=== PATIENT | male | born 1950 | race Caucasian/White ===

== ENCOUNTER 2020-01-19 16:43 | Emergency (ER) | payer MEDICARE, SELFPAY ==
[2020-01-19 16:48] VITALS: BP 192/91; PULSE 83; RESP 20; TEMP 36.6; O2SAT 95; BMI 30.7
[2020-01-19 16:58] VITALS: BP 192/91; PULSE 83; RESP 17; TEMP 36.6; O2SAT 96
[2020-01-19] MEDS: 0.9 % Sodium Chloride 1,000 ML 1000 ML IV (17:18)
[2020-01-19] MEDS: methylPREDNISolone Sod Succ/PF 125 MG/2 ML VIAL IVPUSH (17:19)
[2020-01-19] MEDS: diphenhydrAMINE HCL 50 MG/ML VIAL IVPUSH (17:20)
[2020-01-19] MEDS: EPINEPHrine 1 MG/ML VIAL 0.3 MG SUBCUT (17:24)
[2020-01-19 17:35] LABS: MANUAL DIFF FLAG NO
[2020-01-19 17:37] LABS: Basophils Percent Auto 0.5 % (0-2); Eosinophils Absolute Auto 0.1 X10*3/uL (0.0-0.4); Eosinophils Percent Auto 1.4 % (0-4); Hematocrit 45.2 % (42-52); Hemoglobin 15.4 g/dl (14.0-18.0); Imm Gran Abs Auto 0.02 X10*3/uL (0.00-0.03); Imm Gran Pct Auto 0.2 % (0.0-0.4); Lymphocytes Absolute Auto 2.3 X10*3/uL (1.2-4.9); Lymphocytes Percent Auto 26.5 % (20-40); Mean Corpuscular HGB Conc 34.1 g/dl (31.0-36.0); Mean Corpuscular Volume 93.8 fL (80-98); Monocytes Absolute Auto 0.6 X10*3/uL (0.1-1.2); Monocytes Percent Auto 7.1 % (2-11); Neutrophils Absolute Auto 5.5 X10*3/uL (2.0-8.3); Neutrophils Percent Auto 64.3 % (45-73); Platelet Count 243 X10*3/uL (160-400); Red Blood Count 4.82 X10*6/uL (4.60-5.80); Red Cell Distribution Width 13.1 % (11.0-16.0); White Blood Count 8.6 X10*3/uL (4.8-10.8)
[2020-01-19 18:21] LABS: Alanine Aminotransferase 40 U/L (0-40); Albumin Level 4.3 g/dL (3.5-5.0); Alkaline Phosphatase 89 U/L (39-117); Anion Gap 17 (12-20); Aspartate Amino Transferase 27 U/L (5-37); Bilirubin Total 0.8 mg/dL (0.0-1.0); Blood Urea Nitrogen 11 mg/dL (9-16); Calcium 8.9 mg/dL (8.4-10.2); Carbon Dioxide 28 mmol/L (22-29); Chloride 102 mmol/L (96-108); Estimated Glomerular Filt Rate > 60; Glucose Random 110 mg/dL (60-115); Potassium 3.7 mmol/l (3.3-5.1); Sodium 143 mmol/L (135-145)
[2020-01-19 19:05] VITALS: BP 141/67; PULSE 88; RESP 20; TEMP 36.5; O2SAT 93
--- NOTE | 2020-01-19 20:43 | ED.ALLEREA ---
HPI - Allergic Reaction General Chief complaint: Allergic Reaction Stated complaint: TONGUE SWELLING Time Seen by Provider: 01/19/20 17:12 Source: patient Mode of arrival: ambulatory Limitations: no limitations History of Present Illness HPI narrative: 69-year-old male with history of hypertension previously on lisinopril/hydrochlorothiazide combination which was stopped about 4 months ago when he had developed angioedema presents today states that he went for denture fitting this morning at his dentist did not get any procedures and later on the day developed lips and tongue swelling. Denies any shortness of breath. Does have slight cough. States this has happened similarly in the past but not as bad as last visit here. MD complaint: allergic reaction Onset (ago): hour(s) Exposure: unknown Symptoms: rash, lip swelling, difficulty swallowing and tongue swelling Severity: moderate Previous Allergic Reaction History: prior ED visit(s) and angioedema Related Data Previous Rx's Medication Instructions Recorded clonidine HCl 0.1 mg tablet 0.1 mg PO BEDTIME 90 Days #90 tab 01/12/20 prednisone 40 mg PO DAILY #14 tab 01/19/20 Allergies Allergy/AdvReac Type Severity Reaction Status Date / Time No Known Allergies Allergy Unverified 11/25/19 16:49 [No Known Allergies*] Lisinopril-Hydrochlorothiazide Allergy Unknown swelling Uncoded 11/09/19 00:00 of lips and tongue Review of Systems Review of Systems: Constitutional: No Weight loss, No Fever, No Chills, No Night Sweats, No Fatigue, No Malaise ENT/Mouth: No Hearing loss, No Ear Pain, No Nasal Congestion, No Sinus Pain, No Hoarseness, No sore throat, No Rhinorrhea, No Swallowing Difficulty Eyes: No Eye Pain, No Swelling, No Redness, No Foreign Body, No Discharge, No Vision Changes Cardiovascular: No Chest Pain, No SOB, No Dyspnea on Exertion, No Orthopnea, No Edema, No Palpitations Respiratory: No Cough, No Sputum, No Wheezing, No Smoke Exposure, No Dyspnea Gastrointestinal: No Nausea, No Vomiting, No Diarrhea, No Constipation, No abdominal Pain, No Hematochezia, No Melena Genitourinary: No Dysuria, No Urinary Frequency, No Hematuria, No Urinary Incontinence, No Urgency, No Flank Pain, No Urinary Flow Changes, No Hesitancy Musculoskeletal: No joint pain, No Myalgias, No Joint Swelling Skin: No Skin Lesions, No rash Neuro: No Weakness, No Numbness, No Paresthesias, No Loss of Consciousness, No Dizziness, No Headache Psych: No Social Issues Heme/Lymph: No Bruising, No Bleeding,No Lymphadenopathy Endocrine: No Polyuria, No Polydipsia, No Temperature Intolerance Yes all other systems are reviewed and are negative [facility] Past Medical History Attestation statement: The following information was validated with the patient. Medical History Asthma Hypercholesteremia Hypertension Social History Social History Smoked in Last 30 Days: No Use of substances other than those prescribed or required for medical reasons: No Advance Directives: No Advance Directives Information Provided: Yes Physical Exam Vital Signs: Vital Signs: Last Vital Signs Temp 97.7 F 01/19/20 19:05 Pulse 88 01/19/20 19:05 Resp 20 01/19/20 19:05 BP 141/67 H 01/19/20 19:05 Pulse Ox 93 01/19/20 19:05 Body Mass Index 30.7 Reviewed Const: General: cooperative and healthy appearing; No acute distress or intoxicated appearing Nutritional Appearance: average body habitus Orientation/consciousness: patient oriented x3 HENMT: Other: Diffuse lower lip swelling Head: Yes normal to inspection Ears: hearing grossly normal bilaterally Mouth: tongue abnormal (Tongue with swelling noted to the distal aspect. Posterior pharynx WNL) Eyes: General: appearance normal, both eyes and all related structures Visual Honeycutt: normal visual honeycutt by confrontation Neck: Neck: Yes normal visual inspection, No positive Brudzinski's sign, No positive Kernig's sign and No tender Thyroid: Thyroid normal Chest: Chest palpation & inspection: normal inspection of the chest Resp: Effort & Inspection: normal respiratory effort Cardio: Jugular venous distension: no JVD GI: Inspection: Yes normal to inspection Percussion: Yes normal to percussion Auscultation: normal bowel sounds : General: Yes no CVA tenderness Back/Spine/Pelvis: Back: no CVA tenderness Skin: General skin exam: no rashes or lesions noted Neuro: General: patient oriented x3 Extrem: General: Yes normal to inspection Course Course Course Narrative: Unclear etiology of the angioedema was previously on lisinopril thought to be causing this. This was stopped 4 months ago or so. Patient has not tried any new medications antibiotics. No recent vaccinations. Patient given epinephrine 0.3 subcu, Benadryl, Solu-Medrol and Pepcid. Case discussed with attending who evaluated patient made directly upon arrival. Airway is protected at this time. Reevaluation(s) Reevaluation #1: Patient reports feeling better visually tongue swelling has receded greater 50% at this time resting comfortably drinking water still has slight visible lip swelling. Continue to monitor. I did discuss with the patient given that he has been here for 2 hours after being medicated here that admission would be recommended for observation states he would prefer to go home as this has happened before is willing to stay in the ED for additional few hours for observation. Reevaluation #2: Patient observed symptoms almost fully resolved minimal swelling to the lip still noted. No further complications. Patient requesting discharge home patient will be given short course of prednisone with clear return follow-up precautions. MDM - Allergic Reaction Lab Data Result diagrams: 01/19/20 17:28 01/19/20 17:28 Labs: Lab Results 01/19/20 01/19/20 Range/Units 17:28 17:28 WBC 8.6 (4.8-10.8) X10*3/uL RBC 4.82 (4.60-5.80) X10*6/uL Hgb 15.4 (14.0-18.0) g/dl Hct 45.2 (42-52) % MCV 93.8 (80-98) fL MCH 32.0 (27.0-33.0) pg MCHC 34.1 (31.0-36.0) g/dl RDW 13.1 (11.0-16.0) % Plt Count 243 (160-400) X10*3/uL MPV 9.0 L (9.4-12.4) fL Immature Gran % (Auto) 0.2 (0.0-0.4) % Neut % (Auto) 64.3 (45-73) % Lymph % (Auto) 26.5 (20-40) % [place] % (Auto) 7.1 (2-11) % Eos % (Auto) 1.4 (0-4) % Baso % (Auto) 0.5 (0-2) % Lymph # (Auto) 2.3 (1.2-4.9) X10*3/uL [place] # (Auto) 0.6 (0.1-1.2) X10*3/uL Eos # (Auto) 0.1 (0.0-0.4) X10*3/uL Baso # (Auto) 0.0 (0.0-0.2) X10*3/uL Abs Immat Gran (auto) 0.02 (0.00-0.03) X10*3/uL Absolute Neuts (auto) 5.5 (2.0-8.3) X10*3/uL Absolute Nucleated RBC 0.000 (0.0-0.012) X10*3/uL Nucleated RBC % (auto) 0.0 (0.0-0.2) /100WBC Sodium 143 (135-145) mmol/L Potassium 3.7 (3.3-5.1) mmol/l Chloride 102 (96-108) mmol/L Carbon Dioxide 28 (22-29) mmol/L Anion Gap 17 (12-20) BUN 11 (9-16) mg/dL Creatinine 0.94 (0.5-1.4) mg/dL Estim Creat Clear Calc 88.0 Estimated GFR > 60 Random Glucose 110 (60-115) mg/dL Calcium 8.9 (8.4-10.2) mg/dL Total Bilirubin 0.8 (0.0-1.0) mg/dL AST 27 (5-37) U/L ALT 40 (0-40) U/L Alkaline Phosphatase 89 (39-117) U/L Total Protein 7.0 (6.5-8.0) g/dL Albumin 4.3 (3.5-5.0) g/dL Critical Care Time Critical Care Time Critical Care Time: Yes Total Critical Care Time: 65 Attestation: Significant angioma edema on arrival requiring immediate intervention with epinephrine and IV medication and monitoring airway for potential compromise/intubation. Discharge Plan Discharge Clinical Impression: Angioedema Patient Disposition: Home, Self-Care Instructions: Angioedema (ED) Additional Instructions: follow-up as instructed return to emergency room right away if any concerns or worsening symptoms Take medication as prescribed Unclear as to the source of your allergic reaction that is causing the swelling in her tongue and lip again the recommendation was for us to admit due to observe the overnight however he declined this Follow-up with capital markets specialist as discussed Thank you Prescriptions: New prednisone 20 mg tablet 40 mg PO DAILY Qty: 14 RF: 0 No Action clonidine HCl 0.1 mg tablet 0.1 mg PO BEDTIME 90 Days Qty: 90 RF: 0 Referrals: Rickey Maria FNP-BC [Primary Care Provider] - 1 day Interventions: ED Discharge Assessment Last Done: 01/19/20 21:14 Discharge Date/Time: 01/19/20 21:15
== END 2020-01-19 21:15 | disposition home or self-care (01) ==
PROVIDERS: Nurse Practitioner Primary Care; Emergency Provider Emergency Medicine Emergency Medical Services; PCP Nurse Practitioner Family
DX: L27.1 Localized skin eruption due to drugs and medicaments taken internally (principal); I10 Essential (primary) hypertension; T78.3XXA Angioneurotic edema, initial encounter; T46.4X5A Adverse effect of angiotensin-converting-enzyme inhibitors, initial encounter; Y92.9 Unspecified place or not applicable; Z79.899 Other long term (current) drug therapy
CPT/HCPCS: 36415; 80053; 85025; 96361; 96372; 96374; 96375; 99284; J0171; J1200; J2930

== ENCOUNTER 2020-04-04 09:28 | Outpatient (REF) | payer MEDICARE, SELFPAY ==
--- NOTE | 2020-04-04 09:31 | XR_ITS ---
EXAMINATION: BILATERAL SHOULDER. CLINICAL INFORMATION: Pain and bilateral shoulder. COMPARISON: None TECHNIQUE: 3 views each shoulder. FINDINGS: Left shoulder: There is no visible acute fracture, dislocation or subluxation. The glenohumeral and AC joint space is maintained. The soft tissues are normal. Right shoulder: There is no visible acute fracture, dislocation or subluxation. The glenohumeral and AC joint space is maintained. The soft tissues are normal. XR/XR shoulder RT min 2V IMPRESSION: Unremarkable bilateral shoulder exam
--- NOTE | 2020-04-04 09:31 | XR_ITS ---
EXAMINATION: BILATERAL SHOULDER. CLINICAL INFORMATION: Pain and bilateral shoulder. COMPARISON: None TECHNIQUE: 3 views each shoulder. FINDINGS: Left shoulder: There is no visible acute fracture, dislocation or subluxation. The glenohumeral and AC joint space is maintained. The soft tissues are normal. Right shoulder: There is no visible acute fracture, dislocation or subluxation. The glenohumeral and AC joint space is maintained. The soft tissues are normal. XR/XR shoulder LT min 2V IMPRESSION: Unremarkable bilateral shoulder exam
== END 2020-04-04 09:29 | disposition home or self-care (01) ==
LOC: HO.HMGCX 09:28
PROVIDERS: PCP Nurse Practitioner Family; Visit Provider Nurse Practitioner Family
DX: M25.512 Pain in left shoulder (principal); M25.511 Pain in right shoulder; G89.29 Other chronic pain
CPT/HCPCS: 73030

== ENCOUNTER 2020-04-08 13:44 | Emergency (ER) | payer MEDICARE, SELFPAY ==
[2020-04-08 13:55] VITALS: BP 213/91; PULSE 98; RESP 18; TEMP 36.6; O2SAT 96; BMI 30.1
--- NOTE | 2020-04-08 14:17 | ECG_ITS ---
Test Reason : REACTION Blood Pressure : / mmHG Vent. Rate : 080 BPM Atrial Rate : 080 BPM P-R Int : 158 ms QRS Dur : 138 ms QT Int : 422 ms P-R-T Axes : 054 -66 045 degrees QTc Int : 486 ms Normal sinus rhythm Right bundle branch block Left anterior fascicular block Bifascicular block Minimal voltage criteria for LVH, may be normal variant Abnormal ECG When compared with ECG of 22-SEP-2001 14:41, (RBBB and left anterior fascicular block) is now Present Referred By: Brooklynn Fam Electronically Signed By:Franky Figueroa
[2020-04-08 14:29] LABS: Basophils Absolute Auto 0.1 X10*3/uL (0.0-0.2); Basophils Percent Auto 0.5 % (0-2); Eosinophils Absolute Auto 0.2 X10*3/uL (0.0-0.4); Eosinophils Percent Auto 2.2 % (0-4); Hematocrit 44.5 % (42-52); Imm Gran Abs Auto 0.03 X10*3/uL (0.00-0.03); Imm Gran Pct Auto 0.3 % (0.0-0.4); MANUAL DIFF FLAG NO; Mean Corpuscular HGB Conc 33.7 g/dl (31.0-36.0); Mean Corpuscular Hemoglobin 31.4 pg (27.0-33.0); Mean Corpuscular Volume 93.3 fL (80-98); Mean Platelet Volume 9.2 fL (9.4-12.4); Monocytes Absolute Auto 0.7 X10*3/uL (0.1-1.2); Monocytes Percent Auto 7.6 % (2-11); Neutrophils Absolute Auto 5.4 X10*3/uL (2.0-8.3); Neutrophils Percent Auto 57.4 % (45-73); Platelet Count 253 X10*3/uL (160-400); Red Blood Count 4.77 X10*6/uL (4.60-5.80); White Blood Count 9.4 X10*3/uL (4.8-10.8)
[2020-04-08] MEDS: 0.9 % Sodium Chloride 1,000 ML 999 ML IVCONT (14:31)
[2020-04-08] MEDS: diphenhydrAMINE HCL 50 MG/ML VIAL 25 MG IVPUSH (14:32)
[2020-04-08] MEDS: Famotidine/PF 20 MG/2 ML VIAL IVPUSH (14:32)
[2020-04-08 14:33] VITALS: BP 213/91; PULSE 78
[2020-04-08] MEDS: amLODIPine Besylate 5 MG TABLET PO (14:33)
[2020-04-08 14:49] LABS: COVID-19 Test Negative (Negative)
--- NOTE | 2020-04-08 14:52 | PC.NURSE ---
iv inserted, labs drawn, ekg performed, patient medicated per order, vitals currently stable, will continue to monitor.
[2020-04-08 15:00] LABS: Anion Gap 17 (12-20); Blood Urea Nitrogen 15 mg/dL (9-16); Calcium 9.1 mg/dL (8.4-10.2); Carbon Dioxide 25 mmol/L (22-29); Chloride 106 mmol/L (96-108); Creatinine Clr Calc Pharmacy 79.6; Estimated Glomerular Filt Rate > 60; Glucose Random 123 mg/dL (60-115); Sodium 144 mmol/L (135-145)
[2020-04-08 15:08] LABS: B Type Natriuretic Peptide 56 pg/mL (<100)
[2020-04-08 15:17] VITALS: BP 171/80; PULSE 72; RESP 18; TEMP 36.8; O2SAT 98
--- NOTE | 2020-04-08 15:18 | PC.NURSE ---
patient a&ox3, currently watching tv, playground monitor nsr 70s, vitals stable, will continue to monitor.
--- NOTE | 2020-04-08 15:49 | ED_ITS ---
HPI - Allergic Reaction General Chief complaint: Allergic Reaction Stated complaint: allergic reaction? Time Seen by Provider: 04/08/20 14:17 Source: patient Mode of arrival: ambulatory Limitations: no limitations History of Present Illness HPI narrative: This is a 69-year-old male with history of hypertension, patient had sudden gradual right-sided tongue swelling at home started before arrival, only localized to the right side of the tongue, able to wheeze comfortably a normal, no difficulty breathing. Patient's self inject with epinephrine pen, patient had this episode once before patient was using lisinopril for blood pressure but was stopped for the past almost 2 months. Blood pressure was on the high side in the emergency department, patient declined any chest pain, no difficulty breathing, throat pain or swelling. Patient declined any tongue injury or biting his tongue with his partial denture. No rashes, no itching. Related Data Previous Rx's Medication Instructions Recorded prednisone 40 mg PO DAILY #14 tab 01/19/20 diphenhydramine HCl 25 mg capsule 25 mg PO DAILY PRN 90 Days #90 cap 01/25/20 epinephrine 0.3 mg/0.3 mL 0.3 mg IM Q10M PRN 30 Days #2 ea 01/25/20 injection, auto-injector clonidine HCl 0.1 mg tablet 0.1 mg PO BEDTIME #90 tab 02/15/20 omeprazole 40 mg capsule,delayed 40 mg PO DAILY #60 cap 02/15/20 release atorvastatin 20 mg tablet 20 mg PO DAILY #90 tab 02/24/20 ibuprofen 600 mg tablet 600 mg PO Q8H 30 Days #90 tab 04/04/20 amlodipine 5 mg PO DAILY #10 tab 04/08/20 prednisone 20 mg PO BID #10 tab 04/08/20 Allergies Allergy/AdvReac Type Severity Reaction Status Date / Time Lisinopril-Hydrochlorothiazide Allergy Intermediate swelling Uncoded 04/08/20 14:02 of lips and tongue Review of Systems Review of Systems: All other systems are reviewed and are negative Constitutional: Reports as per HPI and Reports no additional constitutional complaints Eyes: Reports as per HPI and Reports no additional eye complaints Reports system reviewed and no additional complaints, except as documented Cardiovascular: Reports as per HPI and Reports no additional cardiovascular complaints Respiratory: Reports as per HPI and Reports no additional respiratory complaints Gastrointestinal: Reports as per HPI and Reports no additional gastrointestinal complaints Genitourinary: Reports no additional female genitourinary complaints Musculoskeletal: Reports no additional musculoskeletal complaints Skin/Breast: Reports system reviewed and no additional complaints, except as docu Psychiatric: Reports no additional psychiatric complaints Endocrine: Reports no additional endocrine complaints Hematologic/Lymphatic: Reports no additional hematologic/lymphatic complaints Allergic/Immunologic: Reports no additional allergic/immunologic complaints Reports system reviewed and no additional complaints, except as documented and Reports Abnormal speech present [facility] Past Medical History Medical History Asthma Hypercholesteremia Hypertension Social History Social History Alcohol intake: current Alcohol intake frequency: a few times a week Alcohol type: wine Smoking Status: Never smoker Use of substances other than those prescribed or required for medical reasons: No Advance Directives: No Advance Directives Information Provided: Yes Physical Exam Vital Signs: Vital Signs: Last Vital Signs Temp 98.3 F 04/08/20 15:17 Pulse 72 04/08/20 15:17 Resp 18 04/08/20 15:17 BP 171/80 H 04/08/20 15:17 Pulse Ox 98 04/08/20 15:17 Body Mass Index 30.1 Vital signs have been reviewed as normal and appeared to be correct. Blood pressure in the high range, Heart rate normal. Respiration rate normal. Temperature normal. Oxygen saturation normal. Appearance: Alert. Oriented X3. No acute distress. Head: Normal external exam. Normocephalic. Atraumatic. No Gonzalez signs noted. No raccoon eyes noted Eyes: PERRLA. EOMI. Conjunctiva and sclera normal. Eyelids normal. Mouth: Tongue swelling only focal to the right side, left side appear normal, no dental euceda or signs of trauma to the tongue, patent airway, no stridor so. ENT: EAC normal. TM's Normal. Pharynx normal. Uvula midline. Moist mucous membranes. No trismus noted. No drooling noted. No muffled voice noted. Neck: Normal inspection. Neck supple. FROM. No adenopathy. Thyroid Normal. No meningeal signs. No neck mass noted. CVS: Normal heart rate and rhythm. Heart sound normal. No murmurs noted. Pulses normal throughout. Respiratory: No respiratory distress. Painless inspiration. Breath sounds normal. No wheezes/rales/rhonchi noted. Chest nontender. No accessory muscle usage noted or decreased air movement noted. Abdomen: Soft and nontender. Bowel sounds normal in all 4 quadrants. No distention noted. No organomegaly noted. No visible injury noted. Back: No CVA tenderness. Full range of motion noted. Skin: Skin warm and dry. Normal skin color. Normal skin turgor. No rashes/lesions/lacerations noted. Extremities: No lower extremity edema. Extremities exhibit normal range of motion. Extremities nontender. Neuro: Oriented X 3. No motor deficit. No sensory deficit. Reflexes normal. Course Course Course Narrative: 69 year-old male came in with right-sided tongue swelling, of unclear etiology, patient used to use lisinopril for blood pressure control which was stopped for 2 months ago. Patient has patent airway with no stridor, patient received in the emergency department Solu-Medrol, Pepcid, Benadryl IV, patient self inject epinephrine at home, repeat exam showed slight improvement of the right side of the tongue, however I thought the swelling on the right side of the tongue could be secondary to trauma and biting his right side of the tongue from the partial denture that he usually wear on the right side. However patient has scheduled for seen auditor/quality as an outpatient. Will discharge the patient on short course of prednisone. Patient is on clonidine for his blood pressure which appears not well controlling his blood pressure will add amlodipine 5 mg p.o. once daily seem work better in the emergency department. MDM - Allergic Reaction Lab Data Attestation: I reviewed the patient's lab results. Result diagrams: 04/08/20 14:24 04/08/20 14:24 Labs: Lab Results 04/08/20 04/08/20 04/08/20 Range/Units 14:24 14:24 14:24 WBC 9.4 (4.8-10.8) X10*3/uL RBC 4.77 (4.60-5.80) X10*6/uL Hgb 15.0 (14.0-18.0) g/dl Hct 44.5 (42-52) % MCV 93.3 (80-98) fL MCH 31.4 (27.0-33.0) pg MCHC 33.7 (31.0-36.0) g/dl RDW 13.0 (11.0-16.0) % Plt Count 253 (160-400) X10*3/uL MPV 9.2 L (9.4-12.4) fL Immature Gran % (Auto) 0.3 (0.0-0.4) % Neut % (Auto) 57.4 (45-73) % Lymph % (Auto) 32.0 (20-40) % [place] % (Auto) 7.6 (2-11) % Eos % (Auto) 2.2 (0-4) % Baso % (Auto) 0.5 (0-2) % Lymph # (Auto) 3.0 (1.2-4.9) X10*3/uL [place] # (Auto) 0.7 (0.1-1.2) X10*3/uL Eos # (Auto) 0.2 (0.0-0.4) X10*3/uL Baso # (Auto) 0.1 (0.0-0.2) X10*3/uL Abs Immat Gran (auto) 0.03 (0.00-0.03) X10*3/uL Absolute Neuts (auto) 5.4 (2.0-8.3) X10*3/uL Absolute Nucleated RBC 0.000 (0.0-0.012) X10*3/uL Nucleated RBC % (auto) 0.0 (0.0-0.2) /100WBC Sodium 144 (135-145) mmol/L Potassium 4.0 (3.3-5.1) mmol/L Chloride 106 (96-108) mmol/L Carbon Dioxide 25 (22-29) mmol/L Anion Gap 17 (12-20) BUN 15 (9-16) mg/dL Creatinine 1.03 (0.5-1.4) mg/dL Estim Creat Clear Calc 79.6 Estimated GFR > 60 Random Glucose 123 H (60-115) mg/dL Calcium 9.1 (8.4-10.2) mg/dL B-Natriuretic Peptide 56 (<100) pg/mL COVID-19 ([facility]) (Negative) COVID-19 Clin Com 04/08/20 Range/Units 14:24 WBC (4.8-10.8) X10*3/uL RBC (4.60-5.80) X10*6/uL Hgb (14.0-18.0) g/dl Hct (42-52) % MCV (80-98) fL MCH (27.0-33.0) pg MCHC (31.0-36.0) g/dl RDW (11.0-16.0) % Plt Count (160-400) X10*3/uL MPV (9.4-12.4) fL Immature Gran % (Auto) (0.0-0.4) % Neut % (Auto) (45-73) % Lymph % (Auto) (20-40) % [place] % (Auto) (2-11) % Eos % (Auto) (0-4) % Baso % (Auto) (0-2) % Lymph # (Auto) (1.2-4.9) X10*3/uL [place] # (Auto) (0.1-1.2) X10*3/uL Eos # (Auto) (0.0-0.4) X10*3/uL Baso # (Auto) (0.0-0.2) X10*3/uL Abs Immat Gran (auto) (0.00-0.03) X10*3/uL Absolute Neuts (auto) (2.0-8.3) X10*3/uL Absolute Nucleated RBC (0.0-0.012) X10*3/uL Nucleated RBC % (auto) (0.0-0.2) /100WBC Sodium (135-145) mmol/L Potassium (3.3-5.1) mmol/L Chloride (96-108) mmol/L Carbon Dioxide (22-29) mmol/L Anion Gap (12-20) BUN (9-16) mg/dL Creatinine (0.5-1.4) mg/dL Estim Creat Clear Calc Estimated GFR Random Glucose (60-115) mg/dL Calcium (8.4-10.2) mg/dL B-Natriuretic Peptide (<100) pg/mL COVID-19 ([facility]) Negative (Negative) COVID-19 Clin Com See Note ECG Data Interpretation: Normal sinus rhythm at 80 beats per minute, left axis deviation, right bundle branch block, LVH. Discharge Plan Discharge Clinical Impression: Angioedema Qualifiers: Encounter type: initial encounter Qualified Code(s): T78.3XXA - Angioneurotic edema, initial encounter Hypertension Qualifiers: Hypertension type: unspecified Qualified Code(s): I10 - Essential (primary) hypertension Patient Disposition: Home, Self-Care Instructions: Angioedema (ED), Hypertension (ED) Prescriptions: New amlodipine 5 mg tablet 5 mg PO DAILY Qty: 10 RF: 0 prednisone 20 mg tablet 20 mg PO BID Qty: 10 RF: 0 No Action diphenhydramine HCl [Allergy (diphenhydramine)] 25 mg capsule 25 mg PO DAILY PRN (Reason: allergy symptoms) 90 Days Qty: 90 RF: 0 epinephrine [EpiPen] 0.3 mg/0.3 mL auto-injector 0.3 mg IM Q10M PRN (Reason: hypersensitivity reaction) 30 Days Qty: 2 RF: 0 omeprazole 40 mg capsule,delayed release(DR/EC) 40 mg PO DAILY Qty: 60 RF: 2 clonidine HCl 0.1 mg tablet 0.1 mg PO BEDTIME Qty: 90 RF: 1 atorvastatin 20 mg tablet 20 mg PO DAILY Qty: 90 RF: 2 prednisone 20 mg tablet 40 mg PO DAILY Qty: 14 RF: 0 ibuprofen 600 mg tablet 600 mg PO Q8H 30 Days Qty: 90 RF: 3 Referrals: Rickey Maria FNP-AKIKO [Primary Care Provider] - 2 days
[2020-04-08 16:09] VITALS: BP 165/84
== END 2020-04-08 16:35 | disposition home or self-care (01) ==
PROVIDERS: Emergency Provider Emergency Medicine; PCP Nurse Practitioner Family
DX: T78.3XXA Angioneurotic edema, initial encounter (principal); I10 Essential (primary) hypertension; Z20.822 Contact with and (suspected) exposure to COVID-19
CPT/HCPCS: 36415; 80048; 83880; 85025; 87635; 93005; 96365; 96375; 99284; J1200; J2930

== ENCOUNTER 2021-02-12 09:11 | Outpatient (REF) | payer MEDICARE, SELFPAY ==
--- NOTE | ~2021-02-12 | XR_ITS ---
EXAMINATION: XR FOOT, LEFT XR FOOT, RIGHT CLINICAL INFORMATION: Polyneuropathy COMPARISON: None TECHNIQUE: 3 views of each foot FINDINGS: Left foot: No fracture or dislocation. Alignment is anatomic. Joint spaces are maintained. There is mild hypertrophic spurring at the plantar aponeurosis and Achilles insertion to the calcaneus. No ankle joint effusion. The soft tissues are unremarkable. Right foot: No fracture or dislocation. Alignment is anatomic. Joint spaces are maintained. No ankle joint effusion. Mild hypertrophic spurring at the plantar aponeurosis to the calcaneus. No ankle joint effusion. The soft tissues are unremarkable. XR/XR foot RT min 3V IMPRESSION: Small heel spurs bilaterally.
--- NOTE | ~2021-02-12 | XR_ITS ---
EXAMINATION: XR FOOT, LEFT XR FOOT, RIGHT CLINICAL INFORMATION: Polyneuropathy COMPARISON: None TECHNIQUE: 3 views of each foot FINDINGS: Left foot: No fracture or dislocation. Alignment is anatomic. Joint spaces are maintained. There is mild hypertrophic spurring at the plantar aponeurosis and Achilles insertion to the calcaneus. No ankle joint effusion. The soft tissues are unremarkable. Right foot: No fracture or dislocation. Alignment is anatomic. Joint spaces are maintained. No ankle joint effusion. Mild hypertrophic spurring at the plantar aponeurosis to the calcaneus. No ankle joint effusion. The soft tissues are unremarkable. XR/XR foot LT min 3V IMPRESSION: Small heel spurs bilaterally.
== END 2021-02-12 09:12 | disposition home or self-care (01) ==
LOC: HO.HMGCX 09:11
PROVIDERS: PCP Nurse Practitioner Family; Visit Provider Nurse Practitioner Family
DX: G62.9 Polyneuropathy, unspecified (principal)
CPT/HCPCS: 73630

== ENCOUNTER 2021-06-16 10:12 | Outpatient (REF) | payer MEDICARE, SELFPAY ==
--- NOTE | ~2021-06-16 | XR_ITS ---
EXAMINATION: XR LUMBOSACRAL SPINE WITH OBLIQUES CLINICAL INFORMATION: Back pain COMPARISON: None TECHNIQUE: AP, both oblique, and lateral views of the lumbar spine. Lateral view of the lumbosacral junction. FINDINGS: 5 lumbar-type nonrib-bearing vertebra seen. Bones are in normal anatomic alignment with no acute fracture or spondylolisthesis. Mild degenerative changes are seen with small anterior osteophyte formation and mild sclerotic degenerative changes in the posterior elements of the lower lumbar spine. Paravertebral soft tissues and bowel gas pattern unremarkable. Vascular calcification within the normal caliber abdominal aorta XR/XR lumbar spine 4V min IMPRESSION: Mild degenerative changes but no acute bony abnormality.
== END 2021-06-16 10:13 | disposition home or self-care (01) ==
LOC: HO.HMGCX 10:12
PROVIDERS: PCP Nurse Practitioner Family; Visit Provider Physician Assistant Medical
DX: M54.9 Dorsalgia, unspecified (principal)
CPT/HCPCS: 72110

== ENCOUNTER 2021-07-25 06:14 | Outpatient (REF) | payer MEDICARE, SELFPAY ==
[2021-07-25 11:33] LABS: MANUAL DIFF FLAG NO
[2021-07-25 11:33] LABS: Appearance Urine CLEAR; Color Urine YELLOW; Glucose Urine UA NEG (NEG); Leukocyte Esterase Urine NEG (NEG); Nitrite Urine NEG (NEG); PH 6.5 (5.0-8.0); Specific Gravity - Urine 1.015 (1.005-1.025); Urine Blood NEG (NEG); Urine Ketones NEG (NEG); Urine Protein NEG (NEG-TRACE)
[2021-07-25 11:47] LABS: Basophils Absolute Auto 0.1 X10*3/uL (0.0-0.2); Eosinophils Absolute Auto 0.6 X10*3/uL (0.0-0.4); Hematocrit 45.6 % (42.0-52.0); Hemoglobin 15.4 g/dl (14.0-18.0); Imm Gran Abs Auto 0.01 X10*3/uL (0.00-0.03); Imm Gran Pct Auto 0.1 % (0.0-0.4); Lymphocytes Absolute Auto 1.4 X10*3/uL (1.2-4.9); Lymphocytes Percent Auto 19.5 % (20-40); Mean Corpuscular HGB Conc 33.8 g/dl (31.0-36.0); Mean Corpuscular Hemoglobin 31.1 pg (27.0-33.0); Mean Corpuscular Volume 92.1 fL (80.0-98.0); Mean Platelet Volume 9.6 fL (9.4-12.4); Monocytes Absolute Auto 0.8 X10*3/uL (0.1-1.2); Monocytes Percent Auto 10.6 % (2-11); Neutrophils Absolute Auto 4.4 x10*3/uL (2.0-8.3); Neutrophils Percent Auto 60.8 % (45-73); Platelet Count 214 X10*3/uL (160-400); Red Blood Count 4.95 X10*6/uL (4.60-5.80); Red Cell Distribution Width 13.6 % (11.0-16.0); White Blood Count 7.2 X10*3/uL (4.8-10.8)
[2021-07-25 12:14] LABS: Alanine Aminotransferase 29 U/L (0-40); Albumin Level 4.3 g/dL (3.5-5.0); Alkaline Phosphatase 97 U/L (39-117); Anion Gap 15 (12-20); Aspartate Amino Transferase 31 U/L (5-37); Bilirubin Total 0.9 mg/dL (0.0-1.0); Blood Urea Nitrogen 12 mg/dL (9-16); Calcium 9.6 mg/dL (8.4-10.2); Carbon Dioxide 26 mmol/L (22-29); Chloride 103 mmol/L (96-108); Cholesterol 208 mg/dL; Estimated Glomerular Filt Rate > 60; Glucose Fasting 128 mg/dL (60-99); HDL Cholesterol 71 mg/dL; LDL Cholesterol Calculated 112 mg/dl; Potassium 3.8 mmol/L (3.3-5.1); Sodium 140 mmol/L (135-145); Total Protein 7.2 g/dL (6.5-8.0); Triglycerides 126 mg/dL
[2021-07-25 12:15] LABS: Prostate Specific Antigen Scr 1.89 ng/mL (<0.05-4.0); TSH reflex Free T4 2.28 uIU/mL (0.32-4.0)
== END 2021-07-25 06:15 | disposition home or self-care (01) ==
LOC: HO.HMGCLDS 06:14
PROVIDERS: Visit Provider Nurse Practitioner Family
DX: Z00.00 Encounter for general adult medical examination without abnormal findings (principal); Z12.5 Encounter for screening for malignant neoplasm of prostate; E78.5 Hyperlipidemia, unspecified; R53.83 Other fatigue
CPT/HCPCS: 36415; 80053; 80061; 81003; 84153; 84443; 85025

== ENCOUNTER 2021-08-09 06:31 | Outpatient (REF) | payer MEDICARE, SELFPAY ==
[2021-08-09 11:38] LABS: Glucose Fasting 127 mg/dL (60-99)
== END 2021-08-09 06:32 | disposition home or self-care (01) ==
LOC: HO.HMGCLDS 06:31
PROVIDERS: PCP Nurse Practitioner Family; Visit Provider Nurse Practitioner Family
DX: R73.01 Impaired fasting glucose (principal)
CPT/HCPCS: 36415; 82947

== ENCOUNTER → 2021-10-02 14:42 | Outpatient (REF) | payer MEDICARE, SELFPAY ==
--- NOTE | 2021-10-02 14:47 | CA_ITS ---
Transthoracic Echocardiogram Patient (Last, First, Middle): Hood Morris C Gender: Male Date of : 1950 Age: 71 Procedure Date: 10/02/2021 Procedure Type: Transthoracic Echocardiogram Location: OP Height: 180.34 cm Weight: 97.52 kg BSA: 2.17 m2 Heart Rate: 78 bpm BP: 142 / 80 mmHg Mission Assessment Specialist: SB Referring MD: Rickey Maria [facility]- Behavioral Specialist: Felix Greco MD Symptoms: I10 - Essential (primary) hypertension Study Quality: Adequate w Contrast ECG Rhythm: Sinus Conclusions: - The left ventricular systolic function is normal. The visually estimated ejection fraction is between 55-60%. - There is mild calcification of the aortic valve. - No obvious valvular pathology seen on this study. Findings Procedure Information Contrast agent, definity, is being given per protocol without apparent complications. Left Ventricle Normal left ventricular cavity size. There is mildly increased left ventricular wall thickness. The left ventricular systolic function is normal. The visually estimated ejection fraction is between 55-60%. There is no evidence of regional wall motion abnormalities. Right Ventricle Mildly increased right ventricular cavity size. There is normal right ventricular systolic function. Atria Both atria are normal in size. Aortic Valve There is a normal trileaflet aortic valve. There is mild calcification of the aortic valve. There is no aortic valve stenosis. There is no aortic valve regurgitation. Mitral Valve The mitral valve appears normal. There is no mitral valve regurgitation. There is no mitral valve stenosis. Pulmonic Valve The pulmonic valve is likely normal. Tricuspid Valve Normal tricuspid valve structure. There is trace tricuspid valve regurgitation. The pulmonary artery systolic pressure is normal. Great Vessels The aortic annulus, sinuses of valsalva, and asc aorta are normal in size. Venous The inferior vena cava is normal in size and collapses greater than 50% with inspiration. Pericardium/Pleural There is no evidence of pericardial effusion. Prior Study Comparison No significant change compared to prior study dated: 04/08/2012. Recommendations, Care & Conclusions No obvious valvular pathology seen on this study. Measurements 2D Linear Measurements IVSd: 1.36 0.6-0.9/0.6-1.0 cm LVIDd: 5.12 3.9-5.3/4.2-5.9 cm LVIDd Index: 2.36 2.4-3.2/2.2-3.1 cm/m2 LVIDs: 3.15 2.0-3.6 cm LVPWd: 1.08 0.7-1.1 cm LA Diam: 3.90 2.7-3.8/3.0-4.0 cm LAIDs Index: 1.80 1.5-2.3 cm/m2 LV Mass: 309.78 67-162/88-224 g LV Mass Index: 142.75 43-95/49-115 g/m2 LVOT Diam: 2.00 3.0+(-)1.3 cm 2D Systolic Function EF 4C: 51.60 >55% EF 2C: 63.10 >55% EF BiP: 60.80 >55% Mitral Valve MV Pk E: 0.69 MV PK A: 0.73 MV Decel Time: 169.00 E/A: 0.90 E'Lateral: 7.62 E'Medial: 5.55 E/E' Med: 12.50 E/E' Lat: 9.10 PHT: 50.00 MVA PHT: 4.40 Decel [place]: 4.11 Aortic Valve AoV Pk Delvis: 1.63 AoV Mn Delvis: 1.10 AoV VTI: 0.32 AoV Pk Grad: 11.00 Aov Mn Grad: 6.00 JACKY Cont.VTI: 2.71 LVOT LVOT Pk Delvis: 1.29 LVOT Mn Delvis: 0.95 LVOT VTI: 0.28 LVOT Pk Grad: 7.00 LVOT Mn Grad: 4.00 LVOT Diam: 2.00 LVOT Area: 3.14 Diastolic Function MV Pk E: 0.69 MV Pk A: 0.73 E/A: 0.90 E'Medial: 5.55 E/E' Med: 12.50 E' Laterial: 7.62 E/E' Lat: 9.10 Right Ventricle TAPSE (mm): 21.40 TVS' Delvis: 13.10 Tricuspid Valve TR Pk Delvis: 2.33 TR Pk Grad: 22.00 RA Press: 3.00 RVSP: 25.00 Great Vessels Aorta Sinus of Valsalva: 3.20 2.0-3.5 cm Ao Asc: 3.30 2.1-3.4 cm Pulmonary Valve PV Pk Delvis: 1.53 Peak PV Grad: 9.00 Updated in Other Vendor System with Status of Final Felix Greco MD electronically signed on 10/03/2021 10:33:41 AM with status of Final
== END ==
LOC: HO.CARD 14:42
PROVIDERS: Visit Provider Nurse Practitioner Family
DX: I10 Essential (primary) hypertension (principal)
CPT/HCPCS: 93306; Q9957

== ENCOUNTER 2022-01-15 06:36 | Outpatient (REF) | payer MEDICARE, SELFPAY ==
[2022-01-15 11:37] LABS: MANUAL DIFF FLAG NO
[2022-01-15 11:46] LABS: Basophils Absolute Auto 0.1 X10*3/uL (0.0-0.2); Basophils Percent Auto 0.8 % (0-2); Eosinophils Absolute Auto 0.2 X10*3/uL (0.0-0.4); Eosinophils Percent Auto 2.4 % (0-4); Hematocrit 44.9 % (42.0-52.0); Hemoglobin 15.1 g/dl (14.0-18.0); Imm Gran Abs Auto 0.01 X10*3/uL (0.00-0.03); Imm Gran Pct Auto 0.1 % (0.0-0.4); Lymphocytes Absolute Auto 2.1 X10*3/uL (1.2-4.9); Lymphocytes Percent Auto 29.7 % (20-40); Mean Corpuscular HGB Conc 33.6 g/dl (31.0-36.0); Mean Corpuscular Hemoglobin 30.1 pg (27.0-33.0); Mean Corpuscular Volume 89.4 fL (80.0-98.0); Mean Platelet Volume 9.6 fL (9.4-12.4); Monocytes Absolute Auto 0.5 X10*3/uL (0.1-1.2); Monocytes Percent Auto 7.2 % (2-11); Neutrophils Absolute Auto 4.3 x10*3/uL (2.0-8.3); Neutrophils Percent Auto 59.8 % (45-73); Platelet Count 248 X10*3/uL (160-400); Red Blood Count 5.02 X10*6/uL (4.60-5.80); White Blood Count 7.1 X10*3/uL (4.8-10.8)
[2022-01-15 12:14] LABS: Appearance Urine Clear; Color Urine Yellow; Glucose Urine UA Negative (Negative); Leukocyte Esterase Urine Negative (Negative); Nitrite Urine Negative (Negative); Urine Blood Negative (Negative); Urine Ketones Negative (Negative); Urine Protein Negative (Neg-Trace)
[2022-01-15 12:21] LABS: Alanine Aminotransferase 31 U/L (0-40); Albumin Level 4.3 g/dL (3.5-5.0); Alkaline Phosphatase 94 U/L (39-117); Anion Gap 17 (12-20); Aspartate Amino Transferase 27 U/L (5-37); Bilirubin Total 0.6 mg/dL (0.0-1.0); Blood Urea Nitrogen 14 mg/dL (9-16); Calcium 9.6 mg/dL (8.4-10.2); Carbon Dioxide 27 mmol/L (22-29); Chloride 101 mmol/L (96-108); Cholesterol 198 mg/dL; Estimated Glomerular Filt Rate > 60; Glucose Fasting 121 mg/dL (60-99); HDL Cholesterol 59 mg/dL; LDL Cholesterol Calculated 115 mg/dl; Potassium 3.8 mmol/L (3.3-5.1); Sodium 141 mmol/L (135-145); TSH reflex Free T4 2.44 uIU/mL (0.32-4.0); Total Protein 7.1 g/dL (6.5-8.0); Triglycerides 120 mg/dL
[2022-01-15 12:31] LABS: Estimated Average Glucose 126 mg/dL
[2022-01-15 12:43] LABS: Creatinine Urine 74.08 mg/dL; Microalbum/Creatinine Ratio Ur 17.5 ug/mg cr
== END 2022-01-15 06:37 | disposition home or self-care (01) ==
LOC: HO.HMGCLDS 06:36
PROVIDERS: PCP Nurse Practitioner Family; Visit Provider Nurse Practitioner Family
DX: I10 Essential (primary) hypertension (principal); E11.9 Type 2 diabetes mellitus without complications
CPT/HCPCS: 36415; 80053; 80061; 81003; 82043; 83036; 84443; 85025

== ENCOUNTER 2022-07-09 08:00 | Outpatient (REF) | payer MEDICARE, SELFPAY ==
[2022-07-09 11:16] LABS: MANUAL DIFF FLAG NO
[2022-07-09 11:30] LABS: Basophils Absolute Auto 0.1 X10*3/uL (0.0-0.2); Basophils Percent Auto 0.7 % (0-2); Eosinophils Absolute Auto 0.2 X10*3/uL (0.0-0.4); Eosinophils Percent Auto 2.7 % (0-4); Hematocrit 46.9 % (42.0-52.0); Hemoglobin 15.7 g/dl (14.0-18.0); Imm Gran Abs Auto 0.02 X10*3/uL (0.00-0.03); Imm Gran Pct Auto 0.3 % (0.0-0.4); Lymphocytes Absolute Auto 2.1 X10*3/uL (1.2-4.9); Lymphocytes Percent Auto 26.9 % (20-40); Mean Corpuscular HGB Conc 33.5 g/dl (31.0-36.0); Mean Corpuscular Hemoglobin 30.3 pg (27.0-33.0); Mean Corpuscular Volume 90.4 fL (80.0-98.0); Mean Platelet Volume 9.7 fL (9.4-12.4); Monocytes Absolute Auto 0.6 X10*3/uL (0.1-1.2); Monocytes Percent Auto 7.2 % (2-11); Neutrophils Absolute Auto 4.8 x10*3/uL (2.0-8.3); Neutrophils Percent Auto 62.2 % (45-73); Platelet Count 261 X10*3/uL (160-400); Red Blood Count 5.19 X10*6/uL (4.60-5.80); Red Cell Distribution Width 13.5 % (11.0-16.0); White Blood Count 7.7 X10*3/uL (4.8-10.8)
[2022-07-09 11:34] LABS: Appearance Urine Clear; Color Urine Yellow; Glucose Urine UA Negative (Negative); Leukocyte Esterase Urine Negative (Negative); Nitrite Urine Negative (Negative); Urine Blood Negative (Negative); Urine Ketones Negative (Negative); Urine Protein Negative (Neg-Trace)
[2022-07-09 11:45] LABS: Estimated Average Glucose 123 mg/dL; Hemoglobin A1c % 5.9 %
[2022-07-09 12:10] LABS: Alanine Aminotransferase 27 U/L (0-40); Albumin Level 4.2 g/dL (3.5-5.0); Alkaline Phosphatase 76 U/L (39-117); Anion Gap 13 (12-20); Aspartate Amino Transferase 22 U/L (5-37); Bilirubin Total 0.9 mg/dL (0.0-1.0); Blood Urea Nitrogen 15 mg/dL (9-16); Calcium 9.5 mg/dL (8.4-10.2); Carbon Dioxide 28 mmol/L (22-29); Chloride 104 mmol/L (96-108); Cholesterol 233 mg/dL; Estimated Glomerular Filt Rate > 60; Glucose Fasting 120 mg/dL (60-99); HDL Cholesterol 53 mg/dL; LDL Cholesterol Calculated 153 mg/dl; Potassium 4.1 mmol/L (3.3-5.1); Sodium 141 mmol/L (135-145); Total Protein 6.9 g/dL (6.5-8.0); Triglycerides 136 mg/dL
[2022-07-09 12:29] LABS: Prostate Specific Antigen Scr 1.55 ng/mL (<0.05-4.0); TSH reflex Free T4 2.65 uIU/mL (0.32-4.0)
== END 2022-07-09 08:01 | disposition home or self-care (01) ==
LOC: HO.HMGCLDS 08:00
PROVIDERS: PCP Nurse Practitioner Family; Visit Provider Nurse Practitioner Family
DX: Z12.5 Encounter for screening for malignant neoplasm of prostate (principal); E11.9 Type 2 diabetes mellitus without complications; I10 Essential (primary) hypertension
CPT/HCPCS: 36415; 80053; 80061; 81003; 83036; 84153; 84443; 85025

== ENCOUNTER 2022-12-02 08:12 | Outpatient (REF) | payer MEDICARE, SELFPAY ==
[2022-12-02 12:59] LABS: Alanine Aminotransferase 25 U/L (0-40); Albumin Level 4.1 g/dL (3.5-5.0); Alkaline Phosphatase 77 U/L (39-117); Anion Gap 15 (12-20); Aspartate Amino Transferase 21 U/L (5-37); Bilirubin Total 0.7 mg/dL (0.0-1.0); Blood Urea Nitrogen 16 mg/dL (9-16); Calcium 9.9 mg/dL (8.4-10.2); Carbon Dioxide 27 mmol/L (22-29); Chloride 100 mmol/L (96-108); Estimated Glomerular Filt Rate > 60; Glucose Random 116 mg/dL (60-115); Potassium 3.2 mmol/L (3.3-5.1); Sodium 139 mmol/L (135-145); Total Protein 7.5 g/dL (6.5-8.0)
[2022-12-02 13:01] LABS: TSH reflex Free T4 2.14 uIU/mL (0.32-4.0)
[2022-12-02 13:11] LABS: B Type Natriuretic Peptide 44 pg/mL (<100)
== END 2022-12-02 08:13 | disposition home or self-care (01) ==
LOC: HO.HMGCLDS 08:12
PROVIDERS: PCP Nurse Practitioner Family; Visit Provider Nurse Practitioner Family
DX: M25.471 Effusion, right ankle (principal); M25.472 Effusion, left ankle; M25.474 Effusion, right foot; M25.475 Effusion, left foot; I10 Essential (primary) hypertension
CPT/HCPCS: 36415; 80053; 83880; 84443

== ENCOUNTER 2022-12-05 15:00 | Outpatient (REF) | payer MEDICARE, SELFPAY ==
[2022-12-05 16:25] LABS: Anion Gap 17 (12-20); Carbon Dioxide 26 mmol/L (22-29); Chloride 101 mmol/L (96-108); Potassium 3.3 mmol/L (3.3-5.1); Sodium 141 mmol/L (135-145)
== END 2022-12-05 15:01 | disposition home or self-care (01) ==
LOC: HO.HMGCLDS 15:00
PROVIDERS: PCP Nurse Practitioner Family; Visit Provider Nurse Practitioner Family
DX: E87.6 Hypokalemia (principal)
CPT/HCPCS: 36415; 80051

== ENCOUNTER 2022-12-11 08:34 | Outpatient (AMB) | payer MEDICARE, SELFPAY ==
[2022-12-11 08:46] VITALS: BP 138/70; PULSE 83; O2SAT 95; BMI 30.2
--- NOTE | 2022-12-11 08:46 | A.OFFPC_ITS ---
Vital Signs 12/11/22 08:46 Height 5 ft 11 in Weight 216 lb 8 oz BMI 30.2 BP 138/70 Blood Pressure Location Rt brachial Position Sitting Pulse 83 Pulse Source Pulse Oximeter Pulse Oximetry (%) 95 Oxygen Delivery Method Room Air Intake Visit Reasons: 4 month follow up - Microalbumin needed Allergies Lisinopril-Hydrochlorothiazide Allergy (Intermediate, Uncoded 12/11/22 08:49) swelling of lips and tongue Tobacco use date assessed: 12/11/22 Fall risk assessment: No Falls in past year Last assessed Fall Risk: 12/11/22 Dental Screening Dental Screen Date: 12/11/22 Did you have a dental visit in the last 12 months?: Yes Did you have a dental problem in the last 6 months where you did not have access to dental care?: No Was dental information given to patient?: Patient has dentist HPI 4 month follow up - Microalbumin needed HPI Details Patient is here for follow-up for diabetes. He reports that he does not check his sugar very often at all. I encouraged that he does sell seen tight glucose control is very important for overall health. Denies any excessive polyuria, polydipsia, neuropathy. Understands the signs and symptoms of hypoglycemia and had a corrected. Reports he has an eye exam artery scheduled. His A1c is currently 5.8. He does get angioedema type symptoms with use of an Sage, therefore is not on any Sage or Arb. He is on a statin. Swelling reported to bilateral lower extremities, instructed patient to monitor her sodium intake and keep his legs elevated when sitting or lying down. He reports the swelling does cease when he keeps his legs up throughout the night. Echo was fairly benign, BNP was benign. [facility] Medical History Asthma Hypercholesteremia Hypertension Social History Housing: House Alcohol intake: current Alcohol intake frequency: a few times a week Alcohol type: wine Patient Tobacco Use Status: Never used Tobacco e-Cigarette/Vaping Use: Never Used Second Hand Smoke Exposure: No service: No Current occupational status: employed Current occupation: part-time [employer] Current occupational exposures/hazards: No Cognitive needs: No Hearing needs: No Vision needs: No Questionnaire Thrive Questionnaire Date Thrive assessed: 06/06/22 LJ-7 AMB Questionnaire LJ-7 Date LJ - 7 assessed: 06/06/22 Source: Developed by Drs. Trenton Palomino, Sofia Avery, Luis López and colleagues, with an educational lisa from [employer] Physical exam (Primary Care) Vital Signs: Last Vital Signs Pulse 83 12/11/22 08:46 BP 138/70 12/11/22 08:46 Pulse Ox 95 12/11/22 08:46 Oxygen Delivery Method Room Air 12/11/22 08:46 BMI result Body Mass Index 30.2 Tobacco/Smoking Status: Tobacco use Status Tobacco use date assessed 12/11/22 12/11/22 08:52 Patient Tobacco Use Status Never used Tobacco 12/11/22 08:52 e-Cigarette/Vaping Use Never Used 12/11/22 08:52 Thrive Assessment: Date of Thrive Assessment Date Thrive assessed 06/06/22 12/11/22 08:52 Const General: cooperative, healthy appearing, comfortable and no acute distress Resp Effort & Inspection: normal respiratory effort Auscultation: clear to auscultation bilaterally Cardio Rate: regular rate Rhythm: regular rhythm Heart sounds: S1 normal heart sound present, S2 normal heart sound present and no murmurs Skin Other: Feet intact bilat. Positive sensation with the use of monofilament Extrem Other: +1 to bilateral lower extremities Results AMB Hemoglobin A1c AMB Hemoglobin A1c 5.8 % Last Edit by Pauline Sharif CMA on 12/11/22 09: 23 Results Reviewed Results Reviewed: Laboratory Last Values Hgb A1c (Clinic) 5.8 % (4.0-6.0) 12/11/22 09:22 Assessment and Plan Assessment & Plan (1) Diabetes: Code(s): E11.9 - Type 2 diabetes mellitus without complications Orders: Orders TSH reflex Free T4 Today E11.9 - Type 2 diabetes mellitus without complications UA CC w/rflx Micro + Cult Today E11.9 - Type 2 diabetes mellitus without complications Lipid Panel Today E11.9 - Type 2 diabetes mellitus without complications AMB Hemoglobin A1c Today E11.9 - Type 2 diabetes mellitus without complications Complete Blood Count Auto Diff Today E11.9 - Type 2 diabetes mellitus without complications Comprehensive [place]. Panel Fast Today E11.9 - Type 2 diabetes mellitus without complications Microalbumin, Random (w Creat) Today E11.9 - Type 2 diabetes mellitus without complications Coding Level of Care Code Est Pt Level 3 (65944) Diagnoses Diabetes E11.9
== END 2022-12-11 09:11 | disposition home or self-care (01) ==
PROVIDERS: PCP Nurse Practitioner Family; Visit Provider Nurse Practitioner Family
DX: E11.9 Type 2 diabetes mellitus without complications (principal)
CPT/HCPCS: 83036; 99213

== ENCOUNTER 2023-02-18 08:07 | Outpatient (REF) | payer MEDICARE, SELFPAY ==
[2023-02-18 11:19] LABS: MANUAL DIFF FLAG NO
[2023-02-18 11:20] LABS: Basophils Percent Auto 0.6 % (0-2); Eosinophils Absolute Auto 0.2 X10*3/uL (0.0-0.4); Eosinophils Percent Auto 2.6 % (0-4); Hematocrit 46.6 % (42.0-52.0); Hemoglobin 15.7 g/dl (14.0-18.0); Imm Gran Abs Auto 0.02 X10*3/uL (0.00-0.03); Imm Gran Pct Auto 0.3 % (0.0-0.4); Lymphocytes Absolute Auto 1.8 X10*3/uL (1.2-4.9); Lymphocytes Percent Auto 26.3 % (20-40); Mean Corpuscular HGB Conc 33.7 g/dl (31.0-36.0); Mean Corpuscular Hemoglobin 30.6 pg (27.0-33.0); Mean Corpuscular Volume 90.8 fL (80.0-98.0); Mean Platelet Volume 9.6 fL (9.4-12.4); Monocytes Absolute Auto 0.5 X10*3/uL (0.1-1.2); Monocytes Percent Auto 7.1 % (2-11); Neutrophils Absolute Auto 4.3 x10*3/uL (2.0-8.3); Neutrophils Percent Auto 63.1 % (45-73); Platelet Count 222 X10*3/uL (160-400); Red Blood Count 5.13 X10*6/uL (4.60-5.80); Red Cell Distribution Width 13.6 % (11.0-16.0); White Blood Count 6.8 X10*3/uL (4.8-10.8)
[2023-02-18 11:46] LABS: Appearance Urine Clear; Color Urine Yellow; Glucose Urine UA Negative (Negative); Leukocyte Esterase Urine Trace (Negative); Nitrite Urine Negative (Negative); PH 6.5 (5.0-9.0); Specific Gravity - Urine 1.015 (1.005-1.025); UMIC TRIGGER UACC YES; Urine Blood Negative (Negative); Urine Ketones Negative (Negative); Urine Protein Negative (Neg-Trace)
[2023-02-18 11:51] LABS: Bacteria Urine None Seen (None Seen); Hyaline Casts Urine 0-2 /LPF (0-2); RBC Urine 0-2 /HPF (0-2); Squamous Epithelial Cell Urine 0-2 /HPF (0-2); WBC Urine 0-5 /HPF (0-5)
[2023-02-18 11:52] LABS: Alanine Aminotransferase 22 U/L (0-40); Alkaline Phosphatase 71 U/L (39-117); Anion Gap 13 (12-20); Aspartate Amino Transferase 23 U/L (5-37); Bilirubin Total 0.7 mg/dL (0.0-1.0); Blood Urea Nitrogen 11 mg/dL (9-16); Calcium 9.2 mg/dL (8.4-10.2); Carbon Dioxide 27 mmol/L (22-29); Chloride 106 mmol/L (96-108); Cholesterol 234 mg/dL (<200); Estimated Glomerular Filt Rate > 60; Glucose Fasting 114 mg/dL (60-99); HDL Cholesterol 61 mg/dL (>40); LDL Cholesterol Calculated 149 mg/dL (<100); Sodium 142 mmol/L (135-145); Total Protein 7.2 g/dL (6.5-8.0); Triglycerides 124 mg/dL (<150)
[2023-02-18 12:14] LABS: TSH reflex Free T4 2.11 uIU/mL (0.32-4.0)
[2023-02-18 12:17] LABS: Creatinine Urine 104.98 mg/dL; Microalbum/Creatinine Ratio Ur 33.3 ug/mg cr (<30)
== END 2023-02-18 08:08 | disposition home or self-care (01) ==
LOC: HO.HMGCLDS 08:07
PROVIDERS: PCP Nurse Practitioner Family; Visit Provider Nurse Practitioner Family
DX: E11.9 Type 2 diabetes mellitus without complications (principal)
CPT/HCPCS: 36415; 80053; 80061; 81001; 82043; 82570; 84443; 85025

== ENCOUNTER 2023-04-02 09:45 | Outpatient (AMB) | payer MEDICARE, SELFPAY ==
--- NOTE | 2023-04-02 09:49 | MHC.PC.OV ---
Vital Signs 04/02/23 09:50 Height 5 ft 11 in Weight 221 lb 6 oz BMI 30.9 BP 140/86 H Blood Pressure Location Rt brachial Position Sitting Pulse 73 Pulse Source Pulse Oximeter Pulse Oximetry (%) 95 Oxygen Delivery Method Room Air Intake Visit Reasons: 3M follow up Intake Note: Pt is here to follow up for lab results Allergies Lisinopril-Hydrochlorothiazide Allergy (Intermediate, Uncoded 04/02/23 09:53) swelling of lips and tongue Medication List - Last Reconciled 04/02/23 by SONALI Macias- albuterol sulfate 90 mcg/actuation (ProAir HFA) 2 puffs inhalation Q4-6H PRN blood sugar diagnostic (FreeStyle Lite Strips) test blood sugar once a day blood-glucose meter (FreeStyle Lite Meter kit) daily checks cholecalciferol (vitamin D3) 50 mcg PO DAILY clonidine HCl 0.1 mg PO BEDTIME diphenhydramine HCl (Allergy (diphenhydramine)) 25 mg PO DAILY PRN 90 days epinephrine (EpiPen) 0.3 mg (0.3 mL) IM Q10M PRN 30 days flash glucose sensor (FreeStyle Rae 2 Sensor kit) As directed to test blood sugar 4 times per day gabapentin 100 mg PO BEDTIME 30 days lancets (FreeStyle Lancets) Test blood sugar once a day metoprolol succinate ER 50 mg PO DAILY omega [id number]-[id number]-fish oil 300-1,000 mg (Fish Oil) 1 cap PO DAILY omeprazole 40 mg PO DAILY pravastatin 20 mg PO BEDTIME 30 days tamsulosin 0.4 mg PO BEDTIME 30 days Tobacco use date assessed: 04/02/23 Fall risk assessment: No Falls in past year Last assessed Fall Risk: 04/02/23 Dental Screening Dental Screen Date: 04/02/23 Did you have a dental visit in the last 12 months?: Yes Did you have a dental problem in the last 6 months where you did not have access to dental care?: No Was dental information given to patient?: Patient has dentist HPI 3M follow up HPI Details Pt is a diabetic, on a statin. A1C in office today is 5.9. Microalbumin is up to date. Denies polyuria, polydipsia, and neuropathy. Pt denies any signs and symptoms of hypoglycemia and does know how to correct it. Pt does not check his blood sugar. HTN: Blood pressure is managed with metopolol 25mg. BP is elevated today, and at home, will increase metoprolol from 25mg to 50mg. Denies shortness of breath, headache, dizziness, and blurred vision. Pt reports intermittent chest discomfort. He reports noticing this at night while laying down. Will do an EKG in office. Pt is not on an MARY/ARB due to angioedema. REPLACED BY [facility] Medical History Asthma Hypercholesteremia Hypertension Social History Housing: House Alcohol intake: current Alcohol intake frequency: a few times a week Alcohol type: wine Patient Tobacco Use Status: Never used Tobacco e-Cigarette/Vaping Use: Never Used Second Hand Smoke Exposure: No service: No Current occupational status: employed Current occupation: part-time [email or web address] Current occupational exposures/hazards: No Cognitive needs: No Hearing needs: No Vision needs: No Questionnaire PHQ-9 Over the last 2 weeks, how often have you been bothered by any of the following problems? 1. Little interest or pleasure in doing things: not at all 2. Feeling down, depressed, or hopeless: not at all 3. Trouble falling or staying asleep, or sleeping too much: not at all 4. Feeling tired or having little energy: not at all 5. Poor appetite or overeating: not at all 6. Feeling bad about yourself - or that you are a failure or have let yourself or your family down: not at all 7. Trouble concentrating on things, such as reading the newspaper or watching television: not at all 8. Moving or speaking so slowly that other people could have noticed. Or the opposite - being so fidgety or restless that you have been moving around a lot more than usual: not at all 9. Thoughts that you would be better off or of hurting yourself in some way: not at all Total score: 0 Source: Developed by Drs. Trenton Palomino, Sofia Avery, Luis López and colleagues, with an educational lisa from [employer]. Thrive Questionnaire Date Thrive assessed: 04/02/23 I am a: Patient What is your living situation today?: I have a steady place to live Within the past 12 months, did the food you bought not last and you didn't have the money to get more?: Never true Within the past 12 months, did you worry whether your food would run out before you got money to buy more?: Never true Do you have trouble paying for medicines?: No Do you have trouble getting transportation to medical appointments?: No Do you have trouble paying your heating and electricity bill?: No Do you have trouble taking care of your child, family member or friend?: No Do you have trouble with day-to-day activities such as bathing, preparing meals, shopping, managing finances, etc.?: No Are you currently unemployed and looking for a job?: No Are you interested in more education?: No THRIVE Score: 0 AUDIT C Alcohol Use Questionnaire (AUDIT-C) 1. How often do you have a drink containing alcohol?: Monthly or less 2. How many drinks containing alcohol do you have on a typical day when you are drinking?: 1 or 2 3. How often do you have six or more drinks on one occasion?: Never Total Score: 1 LJ-7 AMB Questionnaire LJ-7 Date LJ - 7 assessed: 04/02/23 Feeling nervous, anxious, or on edge: 0 = Not at all Not being able to stop or control worryin = Not at all Worrying too much about different things: 0 = Not at all Trouble relaxin = Not at all Being so restless that it is hard to sit still: 0 = Not at all Becoming easily annoyed or irritable: 0 = Not at all Feeling afraid as if something awful might happen: 0 = Not at all Total LJ-7 score (0-4 normal; 5-9 mild; 10-14 moderate; 15-21 severe): 0 Source: Developed by Drs. Trenton Palomino, Sofia Avery, Luis López and colleagues, with an educational lisa from [employer]. Review of Systems Const Reports as per HPI Physical exam (Primary Care) Vital Signs: Last Vital Signs Pulse 73 04/02/23 09:50 BP 140/86 H 04/02/23 09:50 Pulse Ox 95 04/02/23 09:50 Oxygen Delivery Method Room Air 04/02/23 09:50 BMI result Body Mass Index 30.9 Tobacco/Smoking Status: Tobacco use Status Tobacco use date assessed 04/02/23 04/02/23 09:59 Patient Tobacco Use Status Never used Tobacco 04/02/23 09:49 e-Cigarette/Vaping Use Never Used 04/02/23 09:49 PHQ-9: PHQ-9 Score PHQ-9: Total score 0 04/02/23 10:11 Thrive Assessment: Date of Thrive Assessment Date Thrive assessed 04/02/23 04/02/23 10:09 Const General: cooperative Orientation/consciousness: patient oriented x3 Resp Effort & Inspection: normal respiratory effort Auscultation: clear to auscultation bilaterally Cardio Rate: regular rate Rhythm: regular rhythm Heart sounds: S1 normal heart sound present and S2 normal heart sound present Neuro General: patient oriented x3 Extrem Other: bilat feet: + sensation with use of monofilament, feet intact Right lower extremity: no edema Left lower extremity: no edema Psych Appearance: grossly normal Mental Status: mental status grossly normal Speech and movement: Normal speech and movement present Affect: normal affect Attitude: cooperative Thought process: Normal thought process present Thought content: Normal thought content present Insight: Good insight present (Psych) Judgement: Good judgement present (Psych) Results AMB Hemoglobin A1c AMB Hemoglobin A1c 5.9 % Last Edit by Pauline Sharif CMA on 04/02/23 10:31 Assessment and Plan Assessment & Plan (1) Chest discomfort: Code(s): R07.89 - Other chest pain Plan: EKG done in office Plan The patient agreed to the use of a medical office scheduler for this encounter. Scribed for JOSIAH Odom by Susan Stephens medical office scheduler, on 04/02/2023 at 10:05 EST. Orders: Orders AMB Hemoglobin A1c Today E11.9 - Type 2 diabetes mellitus without complications AMB EKG-In Office Today R07.89 - Other chest pain Medications: Changed From metoprolol succinate ER 25 mg PO DAILY 90 tabs 1RF To metoprolol succinate ER 50 mg PO DAILY 90 tabs 1RF From pravastatin 10 mg PO BEDTIME 30 days 30 tabs 3RF To pravastatin 20 mg PO BEDTIME 30 days 30 tabs 3RF Refilled tamsulosin 0.4 mg PO BEDTIME 30 days 30 caps 3RF Coding Level of Care Code Est Pt Level 3 (65802) Diagnoses Chest discomfort R07.89
[2023-04-02 09:50] VITALS: BP 140/86; PULSE 73; O2SAT 95; BMI 30.9
== END 2023-04-02 10:43 | disposition home or self-care (01) ==
PROVIDERS: PCP Nurse Practitioner Family; Visit Provider Nurse Practitioner Family
DX: R07.89 Other chest pain (principal); E11.9 Type 2 diabetes mellitus without complications
CPT/HCPCS: 83036; 99213

== ENCOUNTER 2023-05-23 08:42 | Outpatient (AMB) | payer MEDICARE, SELFPAY ==
[2023-05-23 08:42] VITALS: BP 160/70; PULSE 67; TEMP 36.2; O2SAT 95; BMI 31.1
--- NOTE | 2023-05-23 08:42 | MHC.OFFWIV ---
Intake Vital Signs 05/23/23 08:42 Height 5 ft 11 in Weight 223 lb BMI 31.1 BP 160/70 H Blood Pressure Location Lt brachial Position Sitting Pulse 67 Pulse Source Pulse Oximeter Temp 97.2 F Temp Source Temporal Artery Scan Pulse Oximetry (%) 95 Oxygen Delivery Method Room Air Intake Visit Reasons: EP stomach pain Intake Note: pt is here today for stomach pain started 1 month Patient Tobacco Use Status: Never used Tobacco Allergies Lisinopril-Hydrochlorothiazide Allergy (Intermediate, Uncoded 04/02/23 09:53) swelling of lips and tongue Do you need a note to return to daycare/school/sports/work: No HPI HPI Comments History of Present Illness Details This is a 73-year-old male with past medical history significant for essential hypertension, hyperlipidemia, and diabetes mellitus with peripheral neuropathy who presented to the walk-in clinic complaining of left-sided abdominal pain x1 month. Patient states this pain started about 1 month ago and was intermittent; however, it has become more constant. Patient states he discuss this with his primary care physician who thought it might have been related to his obesity. He states the pain is located in the mid-left/umbilical areas. He describes the pain as achy and tolerable though it has become more constant. He states it does occasionally worsened with eating though he has been able to tolerate a diet without difficulty. He denies associated nausea/vomiting/diarrhea. He denies associated fever/chills. He states he is having regular bowel movements about once a day and these are not loose or watery. He denies any melena or hematochezia. [facility] Medical History (Updated 05/23/23 @ 09:46 by DHAVAL Nettles) Abdominal pain Asthma Hypercholesteremia Hypertension Social History Housing: House Alcohol intake: current Alcohol intake frequency: a few times a week Alcohol type: wine Patient Tobacco Use Status: Never used Tobacco e-Cigarette/Vaping Use: Never Used Second Hand Smoke Exposure: No service: No Current occupational status: employed Current occupation: part-time [email or web address] Current occupational exposures/hazards: No Cognitive needs: No Hearing needs: No Vision needs: No Review of Systems Const All systems reviewed & are unremarkable except as noted in HPI and below Reports no additional complaints Eyes Reports no additional complaints ENT Reports no additional complaints Card Reports no additional complaints Resp Reports no additional complaints GI Reports no additional complaints Reports no additional complaints Musc Reports no additional complaints Skin/Breast Reports system reviewed and no additional complaints, except as documented Neuro Reports no additional complaints Psych Reports no additional complaints Endo Reports no additional complaints Shahriar/Lymph Reports no additional complaints Aller/Immun Reports no additional complaints Physical Exam Vital Signs: Last Vital Signs Temp 97.2 F 05/23/23 08:42 Pulse 67 05/23/23 08:42 BP 160/70 H 05/23/23 08:42 Pulse Ox 95 05/23/23 08:42 Oxygen Delivery Method Room Air 05/23/23 08:42 BMI result Body Mass Index 31.1 Const Other: Vital signs reviewed. Constitutional: Non-toxic appearing. No acute distress. Well-developed and well-nourished. HEENT: Normocephalic and atraumatic. Skin: Warm and dry. No rashes or lesions noted. Neck: Full and painless range of motion. No cervical lymphadenopathy. Cardio: Regular rate and rhythm. No murmurs, gallops, or rubs. No lower extremity edema. No JVD. Pulmonary: No respiratory distress. No accessory muscle usage. Clear to auscultation bilaterally without wheezing, crackles, or rhonchi. Gastrointestinal: There is minimal tenderness to palpation in the mid left quadrant and umbilical areas. There are no palpable hernias. He has normoactive bowel sounds in all 4 quadrants. He has no peritoneal signs. No rebound or guarding. Genitourinary: No CVA tenderness. Musculoskeletal: Normal range of motion in joints throughout the body. No deformity or other signs of injury. Neuro: Alert and oriented x4. Cranial nerves 2-12 grossly intact. No focal deficits appreciated. Psych: Normal mood and affect. Assessment & Plan Assessment & Plan (1) Abdominal pain: Code(s): R10.9 - Unspecified abdominal pain Qualifiers: Abdominal location: left lower quadrant Qualified Code(s): R10.32 - Left lower quadrant pain Plan This is a 73-year-old male with past medical history significant for essential hypertension, hyperlipidemia, diabetes mellitus, and gastroesophageal reflux disease who presented to the walk-in clinic complaining of left mid/periumbilical abdominal pain x1 month. The patient states the pain is achy intolerable, though it has become more constant since its onset. He denies any associated nausea/vomiting/diarrhea/constipation, melena/hematochezia, or fever/chills. On physical examination, the patient has minimal tenderness to palpation of the left mid abdomen without rebound/guarding or peritoneal signs and he has normoactive bowel sounds throughout. The patient does not appear to have an acute surgical abdomen or a small bowel obstruction. There are no appreciable hernias to suggest strangulation. The other concern would be ischemic bowel as the pain occasionally worsens with eating; however, this is considered to be significantly less likely given the chronicity of his pain as well as the mild nature of his pain. Patient was reassured that there does not appear to be an acute urgent or emergent cause of his abdominal pain. His pain could certainly be caused by a mild colitis, for which I recommended a bland diet as tolerated. Additionally, his pain could be related to obesity as previously the by his primary care physician. In order to provide more reassurance, I have ordered a CBC, CMP, and lipase to evaluate for leukocytosis, kidney dysfunction, liver dysfunction, and evidence of pancreatitis though I do consider these to be significantly less likely at this time. I offered to send a prescription for dicyclomine or simethicone to help with the patient's pain though he declined at this time. The patient was extremely appreciative of the care provided to him today and states that he will follow-up with his primary care physician as scheduled in July of 2023. He was instructed to proceed directly to the emergency room if he were to develop any melena/hematochezia, worsening pain, diarrhea/constipation/obstipation, or fever/chills. Patient verbalizes understanding and he is in agreement with the plan. Orders: Orders Complete Blood Count Auto Diff Today R10.9 - Unspecified abdominal pain Lipase Today R10.9 - Unspecified abdominal pain Comprehensive Met. Panel Today R10.9 - Unspecified abdominal pain Coding Level of Care Code Est Pt Level 3 (53829) Diagnoses Left lower quadrant abdominal pain R10.32 Abdominal location: left lower quadrant
== END 2023-05-23 10:15 | disposition home or self-care (01) ==
PROVIDERS: PCP Nurse Practitioner Family; Visit Provider Physician Assistant Medical
DX: R10.32 Left lower quadrant pain (principal)
CPT/HCPCS: 99213

== ENCOUNTER 2023-05-24 06:34 | Outpatient (REF) | payer MEDICARE, SELFPAY ==
[2023-05-24 11:55] LABS: MANUAL DIFF FLAG NO
[2023-05-24 12:02] LABS: Basophils Absolute Auto 0.1 X10*3/uL (0.0-0.2); Basophils Percent Auto 0.8 % (0-2); Eosinophils Absolute Auto 0.2 X10*3/uL (0.0-0.4); Eosinophils Percent Auto 2.6 % (0-4); Hematocrit 47.4 % (42.0-52.0); Imm Gran Abs Auto 0.03 X10*3/uL (0.00-0.03); Imm Gran Pct Auto 0.5 % (0.0-0.4); Lymphocytes Absolute Auto 1.7 X10*3/uL (1.2-4.9); Lymphocytes Percent Auto 26.4 % (20-40); Mean Corpuscular HGB Conc 33.8 g/dl (31.0-36.0); Mean Corpuscular Hemoglobin 30.7 pg (27.0-33.0); Mean Corpuscular Volume 90.8 fL (80.0-98.0); Mean Platelet Volume 9.5 fL (9.4-12.4); Monocytes Absolute Auto 0.5 X10*3/uL (0.1-1.2); Monocytes Percent Auto 7.3 % (2-11); Neutrophils Percent Auto 62.4 % (45-73); Platelet Count 228 X10*3/uL (160-400); Red Blood Count 5.22 X10*6/uL (4.60-5.80); Red Cell Distribution Width 13.2 % (11.0-16.0); White Blood Count 6.4 X10*3/uL (4.8-10.8)
[2023-05-24 12:34] LABS: Alanine Aminotransferase 21 U/L (0-40); Albumin Level 4.1 g/dL (3.5-5.0); Alkaline Phosphatase 70 U/L (39-117); Anion Gap 11 (12-20); Aspartate Amino Transferase 20 U/L (5-37); Bilirubin Total 0.5 mg/dL (0.0-1.0); Blood Urea Nitrogen 12 mg/dL (9-16); Calcium 9.6 mg/dL (8.4-10.2); Carbon Dioxide 30 mmol/L (22-29); Chloride 106 mmol/L (96-108); Estimated Glomerular Filt Rate > 60; Glucose Random 116 mg/dL (60-115); Lipase 42 U/L (8-78); Potassium 4.2 mmol/L (3.3-5.1); Sodium 143 mmol/L (135-145); Total Protein 7.4 g/dL (6.5-8.0)
== END 2023-05-24 06:35 | disposition home or self-care (01) ==
LOC: HO.HMGCLDS 06:34
PROVIDERS: PCP Nurse Practitioner Family; Visit Provider Physician Assistant Medical
DX: R10.9 Unspecified abdominal pain (principal)
CPT/HCPCS: 36415; 80053; 83690; 85025

== ENCOUNTER 2023-07-21 13:42 | Outpatient (AMB) | payer MEDICARE, SELFPAY ==
--- NOTE | 2023-07-21 13:53 | A.OFFPC_ITS ---
Vital Signs 07/21/23 13:57 Height 5 ft 11 in Weight 217 lb BMI 30.3 BP 140/90 H Blood Pressure Location Lt brachial Position Sitting Pulse 72 Pulse Source Pulse Oximeter Pulse Oximetry (%) 96 Oxygen Delivery Method Room Air Intake Visit Reasons: 3M follow up Intake Note: Patient here for diabetes f/u. Pt also wanted to discuss discomfort on left side. Allergies Lisinopril-Hydrochlorothiazide Allergy (Intermediate, Uncoded 04/02/23 09:53) swelling of lips and tongue Tobacco use date assessed: 04/02/23 Fall risk assessment: No Falls in past year Last assessed Fall Risk: 07/21/23 Dental Screening Dental Screen Date: 04/02/23 HPI 3M follow up HPI Details Pt is a diabetic, on a statin. A1C in office today is 5.7. Microalbumin is up to date. Denies polyuria, polydipsia, and neuropathy. Pt denies any signs and symptoms of hypoglycemia and does know how to correct it. Pt c/o ongoing pain to his bilat legs. He describes the pain as burning. He reports that this occurs at night and wakes him up. It also occurs in the morning. He denies any symptoms of restless leg. ? if related to pravastatin. Will have pt stop this. Will also order labs and US. Pt c/o left abdominal pain. He reports that this is worse with eating. Will order US. Denies any N/V or bowel changes. Due for colon screen, will refer to GI. [facility] Medical History (Updated 07/21/23 @ 14:19 by SONALI MaciasAKIKO) Abdominal pain Asthma Hypercholesteremia Hypertension Social History Housing: House Alcohol intake: current Alcohol intake frequency: a few times a week Alcohol type: wine Patient Tobacco Use Status: Never used Tobacco e-Cigarette/Vaping Use: Never Used Second Hand Smoke Exposure: No service: No Current occupational status: employed Current occupation: part-time [employer] Current occupational exposures/hazards: No Cognitive needs: No Hearing needs: No Vision needs: No Questionnaire Thrive Questionnaire Date Thrive assessed: 04/02/23 LJ-7 AMB Questionnaire LJ-7 Date LJ - 7 assessed: 04/02/23 Source: Developed by Drs. Trenton Palomino, Sofia Avery, Luis López and colleagues, with an educational lisa from [employer]. Review of Systems Const Reports as per HPI Physical exam (Primary Care) Vital Signs: Last Vital Signs Pulse 72 07/21/23 13:57 BP 140/90 H 07/21/23 13:57 Pulse Ox 96 07/21/23 13:57 Oxygen Delivery Method Room Air 07/21/23 13:57 BMI result Body Mass Index 30.3 Tobacco/Smoking Status: Tobacco use Status Tobacco use date assessed 04/02/23 07/21/23 13:55 Patient Tobacco Use Status Never used Tobacco 07/21/23 13:55 e-Cigarette/Vaping Use Never Used 07/21/23 13:55 Thrive Assessment: Date of Thrive Assessment Date Thrive assessed 04/02/23 07/21/23 13:55 Const General: cooperative Orientation/consciousness: patient oriented x3 Resp Effort & Inspection: normal respiratory effort Auscultation: clear to auscultation bilaterally Cardio Rate: regular rate Rhythm: regular rhythm Heart sounds: S1 normal heart sound present and S2 normal heart sound present Neuro General: patient oriented x3 Extrem Other: bilat feet: + sensation with use of monofilament, feet intact, + dorsalis pedis pulses Psych Appearance: grossly normal Mental Status: mental status grossly normal Speech and movement: Normal speech and movement present Affect: normal affect Attitude: cooperative Thought process: Normal thought process present Thought content: Normal thought content present Insight: Good insight present (Psych) Judgement: Good judgement present (Psych) Results AMB Hemoglobin A1c AMB Hemoglobin A1c 5.7 % Last Edit by GABRIEL Coreas on 07/21/23 14 :23 Results Reviewed Results Reviewed: Laboratory Last Values Hgb A1c (Clinic) 5.7 % (4.0-6.0) 07/21/23 14:22 Assessment and Plan Assessment & Plan (1) Abdominal pain: Code(s): R10.9 - Unspecified abdominal pain Qualifiers: Abdominal location: left lower quadrant Qualified Code(s): R10.32 - Left lower quadrant pain Plan: US ordered (2) Screening for colon cancer: Code(s): Z12.11 - Encounter for screening for malignant neoplasm of colon Plan: Referred to GI (3) Leg pain, bilateral: Code(s): M79.604 - Pain in right leg; M79.605 - Pain in left leg Plan: US (arterial and venous), stop statin (4) Diabetes: Code(s): E11.9 - Type 2 diabetes mellitus without complications (5) Leg pain, bilateral: Code(s): M79.604 - Pain in right leg; M79.605 - Pain in left leg Plan The patient agreed to the use of a electromedical service engineer for this encounter. Scribed for SONALI Odom- by Susan Stephens electromedical service engineer, on 07/21/2023 at 14:10 EST. Orders: Orders US venous duplex LE BI Today M79.604 - Pain in right leg, M79.605 - Pain in left leg Complete Blood Count Auto Diff Today E11.9 - Type 2 diabetes mellitus without complications UA CC w/rflx Micro + Cult Today E11.9 - Type 2 diabetes mellitus without complications AMB Hemoglobin A1c Today Z13.9 - Encounter for screening, unspecified Ferritin Today M79.604 - Pain in right leg, M79.605 - Pain in left leg IRON PROFILE Today M79.604 - Pain in right leg, M79.605 - Pain in left leg US abdomen complete Today R10.32 - Left lower quadrant pain US arterial duplex LE BI Today M79.604 - Pain in right leg, M79.605 - Pain in left leg Comprehensive Ware. Panel Fast Today E11.9 - Type 2 diabetes mellitus without complications TSH reflex Free T4 Today E11.9 - Type 2 diabetes mellitus without complications Lipid Panel Today E11.9 - Type 2 diabetes mellitus without complications Creatine Kinase Total Today M79.604 - Pain in right leg, M79.605 - Pain in left leg Referrals Gastroenterology Referral Z12.11 - Encounter for screening for malignant neoplasm of colon Coding Level of Care Code Est Pt Level 3 (03170) Diagnoses Left lower quadrant abdominal pain R10.32 Abdominal location: left lower quadrant Screening for colon cancer Z12.11 Leg pain, bilateral M79.604; M79.605 Diabetes E11.9
[2023-07-21 13:57] VITALS: BP 140/90; PULSE 72; O2SAT 96; BMI 30.3
== END 2023-07-21 15:16 | disposition home or self-care (01) ==
PROVIDERS: PCP Nurse Practitioner Family; Visit Provider Nurse Practitioner Family
DX: R10.32 Left lower quadrant pain (principal); E11.9 Type 2 diabetes mellitus without complications; Z12.11 Encounter for screening for malignant neoplasm of colon; M79.604 Pain in right leg; M79.605 Pain in left leg
CPT/HCPCS: 83036; 99213

== ENCOUNTER 2023-07-30 08:17 | Outpatient (REF) | payer MEDICARE, SELFPAY ==
--- NOTE | ~2023-07-30 | US_ITS ---
EXAMINATION: US ABDOMEN COMPLETE CLINICAL INFORMATION: Left lower quadrant pain. COMPARISON: CT abdomen and pelvis 07/20/2015. TECHNIQUE: Real-time imaging of the abdominal viscera. Limited visualization due to bowel gas. FINDINGS: PANCREAS: Limited visualization of pancreatic tail and head. Imaged portion of pancreatic body is unremarkable. ABDOMINAL AORTA: Limited visualization. INFERIOR VENA CAVA: Visualized portions are normal. LIVER: Increased hepatic parenchymal heterogeneity and echogenicity could be associated with hepatocellular disease/hepatic steatosis and substantially limits visualization. Correlation with liver function tests and clinical exam recommended to determine further management. GALLBLADDER: No gallstones. No gallbladder wall thickening. COMMON BILE DUCT: Normal in caliber measuring 0.3 cm in diameter. RIGHT KIDNEY: No hydronephrosis. No renal calculi. Limited visualization. The kidney measures 10.5 cm in maximum dimension. LEFT KIDNEY: No hydronephrosis. No renal calculi. Limited visualization. The kidney measures 11.6 cm in maximum dimension. SPLEEN: Normal. The spleen measures 9.0 cm in maximum dimension. FREE FLUID: None. Additional Findings: Targeted ultrasound images were obtained by the traffic court referee of the area of concern as indicated by the patient in the left lower quadrant demonstrate no discrete mass or fluid collection. Limited visualization due to bowel gas and body habitus. Radiologist was not in attendance. Images were later provided for interpretation. US/US abdomen complete IMPRESSION: 1. Increased hepatic parenchymal heterogeneity and echogenicity could be associated with hepatocellular disease/hepatic steatosis and substantially limits visualization. Correlation with liver function tests and clinical exam recommended to determine further management. 2. Targeted ultrasound images were obtained by the traffic court referee of the area of concern as indicated by the patient in the left lower quadrant demonstrate no discrete mass or fluid collection. Limited visualization due to bowel gas and body habitus. Radiologist was not in attendance. Images were later provided for interpretation.
== END 2023-07-30 08:18 | disposition home or self-care (01) ==
LOC: HO.US 08:17
PROVIDERS: PCP Nurse Practitioner Family; Visit Provider Nurse Practitioner Family
DX: R10.32 Left lower quadrant pain (principal)
CPT/HCPCS: 76700

== ENCOUNTER 2023-08-07 08:18 | Outpatient (REF) | payer MEDICARE, SELFPAY ==
--- NOTE | ~2023-08-07 | US_ITS ---
EXAMINATION: Noninvasive assessment of the bilateral lower extremities with ARTERIAL DUPLEX. CLINICAL INFORMATION: Peripheral vascular disease, lower extremity pain TECHNIQUE: Duplex Doppler techniques with waveform analysis and measurement of velocities in the bilateral common femoral, profunda femoris, superficial femoral, popliteal and tibial arteries were performed. COMPARISON: None FINDINGS: DIRECT DUPLEX DOPPLER FINDINGS: RIGHT LEG: Common femoral artery: 100 cm/s, phasicity: Biphasic. Mild calcified plaque Profunda femoris artery: 63 cm/s, phasicity: Biphasic Superficial femoral artery (proximal): 110 cm/s, phasicity: Biphasic Superficial femoral artery (mid): 103 cm/s, phasicity: Biphasic Superficial femoral artery (distal): 101 cm/s, phasicity: Biphasic Popliteal artery: 93 cm/s, phasicity: Biphasic Posterior tibial artery: 88.2 cm/s, phasicity: Biphasic Peroneal artery: 51.4 cm/s, phasicity: Biphasic Anterior tibial artery: 95.1 cm/s, phasicity: Biphasic LEFT LEG: Common femoral artery: 114 cm/s, phasicity: Biphasic Profunda femoris artery: 91.7 cm/s, phasicity: Biphasic Superficial femoral artery (proximal): 103 cm/s, phasicity: Biphasic Superficial femoral artery (mid): 95.3 cm/s, phasicity: Biphasic Superficial femoral artery (distal): 88 cm/s, phasicity: Biphasic Popliteal artery: 73.3 cm/s, phasicity: Biphasic Posterior tibial artery: 75.8 cm/s, phasicity: Biphasic Peroneal artery: 54.9 cm/s, phasicity: Biphasic Anterior tibial artery: 90.9 cm/s, phasicity: Biphasic US/US arterial duplex LE BI IMPRESSION: Right leg: Patent arterial flow without significant arterial stenosis or occlusion Left leg: Patent arterial flow without significant arterial stenosis or occlusion
== END 2023-08-07 08:19 | disposition home or self-care (01) ==
LOC: HO.US 08:18
PROVIDERS: PCP Nurse Practitioner Family; Visit Provider Nurse Practitioner Family
DX: M79.604 Pain in right leg (principal); M79.605 Pain in left leg
CPT/HCPCS: 93925

== ENCOUNTER 2023-08-11 08:14 | Outpatient (REF) | payer MEDICARE, SELFPAY ==
--- NOTE | ~2023-08-11 | US_ITS ---
EXAMINATION: US VENOUS ULTRASOUND WITH DOPPLER LOWER EXTREMITY, BILATERAL CLINICAL INFORMATION: Leg pain COMPARISON: None available. TECHNIQUE: Ultrasound of the deep veins is performed from the hip to the calf with compression sonography and color and pulse Doppler assessment. Spectral analysis with color-flow imaging is performed. FINDINGS: RIGHT: There is normal venous compression and respiratory variation and augmented flow. The visualized common femoral vein, superficial femoral vein, profunda femoral vein, popliteal vein, and the trifurcation region shows no evidence of deep venous thrombosis. There is no significant popliteal fossa cyst. LEFT: There is normal venous compression and respiratory variation and augmented flow. The visualized common femoral vein, superficial femoral vein, profunda femoral vein, popliteal vein, and the trifurcation region shows no evidence of deep venous thrombosis. There is no significant popliteal fossa cyst. If the patient's symptoms persist, followup ultrasound in 5 days 7 days might be of value to exclude proximal propagation from a non-visualized calf vein. US/US venous duplex LE BI IMPRESSION: No DVT demonstrated in the bilateral lower extremities.
== END 2023-08-11 08:15 | disposition home or self-care (01) ==
LOC: HO.US 08:14
PROVIDERS: PCP Nurse Practitioner Family; Visit Provider Nurse Practitioner Family
DX: M79.604 Pain in right leg (principal); M79.605 Pain in left leg
CPT/HCPCS: 93970

== ENCOUNTER 2023-10-24 08:55 | Outpatient (AMB) | payer MEDICARE, SELFPAY ==
--- NOTE | 2023-10-24 09:00 | AM.OFFVISNUR ---
Intake Visit Reasons: FBS Allergies Lisinopril-Hydrochlorothiazide Allergy (Intermediate, Uncoded 04/02/23 09:53) swelling of lips and tongue Nursing Note Pt in today for BP check and DM teaching. Teaching on s/sx of hypoglycemia and FBS goal r/t PMH of DM Results AMB Random Glucose (hemocue) AMB Random Glucose (hemocue) 93 mg/dL Last Edit by Todd Pickett RN on 10/24/23 09:03 collected during NN visit r/t DM teaching Assessment & Plan Assessment & Plan Orders: Orders AMB Random Glucose (hemocue) Today E11.9 - Type 2 diabetes mellitus without complications
== END 2023-10-24 09:30 | disposition home or self-care (01) ==
LOC: HO.HMGC 08:55
PROVIDERS: PCP Nurse Practitioner Family; Visit Provider Nurse Practitioner Family
DX: E11.9 Type 2 diabetes mellitus without complications (principal)
CPT/HCPCS: 82948

== ENCOUNTER 2023-11-27 08:12 | Outpatient (AMB) | payer MEDICARE, SELFPAY ==
--- NOTE | 2023-11-27 08:30 | MHC.PC.OV ---
Vital Signs 11/27/23 08:32 Height 5 ft 11 in Weight 224 lb BMI 31.2 BP 130/72 Blood Pressure Location Rt brachial Position Sitting Pulse 60 Pulse Source Pulse Oximeter Pulse Oximetry (%) 97 Intake Visit Reasons: PE Intake Note: pt is here for PE, A1c done in offie today Operations Administrative Assistant Required: No Accompanied by: Self / Same As Patient Allergies Lisinopril-Hydrochlorothiazide Allergy (Intermediate, Uncoded 11/27/23 09:04) swelling of lips and tongue Medication List - Last Reconciled 11/27/23 by Rickey Maria, [facility]- albuterol sulfate 90 mcg/actuation (ProAir HFA) 2 puffs inhalation Q4-6H PRN amlodipine 5 mg PO DAILY blood pressure test kit-medium daily blood sugar diagnostic (FreeStyle Lite Strips) test blood sugar once a day blood-glucose meter (FreeStyle Lite Meter kit) daily checks cholecalciferol (vitamin D3) 50 mcg PO DAILY clonidine HCl 0.1 mg PO BEDTIME diphenhydramine HCl (Allergy (diphenhydramine)) 25 mg PO DAILY PRN 90 days epinephrine (EpiPen) 0.3 mg (0.3 mL) IM Q10M PRN 30 days ezetimibe 10 mg PO DAILY flash glucose sensor (HDFStyle Rae 2 Sensor kit) As directed to test blood sugar 4 times per day gabapentin 300 mg PO BEDTIME 90 days lancets (FreeStyle Lancets) Test blood sugar once a day metoprolol succinate ER 100 mg PO DAILY metoprolol succinate ER 25 mg PO DAILY omega 7-sck-aiq-fish oil 300-1,000 mg (Fish Oil) 1 cap PO DAILY omeprazole 40 mg PO DAILY pravastatin 20 mg PO BEDTIME tamsulosin 0.4 mg PO BEDTIME Tobacco use date assessed: 04/02/23 Fall risk assessment: No Falls in past year Last assessed Fall Risk: 11/27/23 Dental Screening Dental Screen Date: 04/02/23 HPI PE HPI Details Pt is here for a PE. Will order labs. Colon screen is scheduled. Due for PSA, will order, does not want a BORIS. Denies dribbling with urination, weak stream, does report nocturia. Pt is a diabetic, on a statin. A1C in office today is 6.0. Microalbumin is up to date. Denies polyuria, polydipsia, and neuropathy. Pt denies any signs and symptoms of hypoglycemia and does know how to correct it. Eye exam is up to date. Pt is following up with dermatology. [facility] Medical History Abdominal pain Asthma Hypercholesteremia Hypertension Surgical History No pertinent past surgical history Social History Housing: House Alcohol intake: current Alcohol intake frequency: a few times a week Alcohol type: wine Patient Tobacco Use Status: Never used Tobacco e-Cigarette/Vaping Use: Never Used Second Hand Smoke Exposure: No service: No Current occupational status: employed Current occupation: part-time [employer] Current occupational exposures/hazards: No Cognitive needs: No Hearing needs: No Vision needs: No Questionnaire PHQ-9 Over the last 2 weeks, how often have you been bothered by any of the following problems? 1. Little interest or pleasure in doing things: not at all 2. Feeling down, depressed, or hopeless: not at all 3. Trouble falling or staying asleep, or sleeping too much: not at all 4. Feeling tired or having little energy: not at all 5. Poor appetite or overeating: not at all 6. Feeling bad about yourself - or that you are a failure or have let yourself or your family down: not at all 7. Trouble concentrating on things, such as reading the newspaper or watching television: not at all 8. Moving or speaking so slowly that other people could have noticed. Or the opposite - being so fidgety or restless that you have been moving around a lot more than usual: not at all 9. Thoughts that you would be better off or of hurting yourself in some way: not at all Total score: 0 Depression Screening Interpretation: Negative Depression Screening Done: Yes [id number] - PHQ-9 Billing: Yes Source: Developed by Drs. Trenton Palomino, Sofia Avery, Luis López and colleagues, with an educational lisa from [employer]. Thrive Questionnaire Date Thrive assessed: 04/02/23 I am a: Patient What is your living situation today?: I have a steady place to live Within the past 12 months, did the food you bought not last and you didn't have the money to get more?: Never true Within the past 12 months, did you worry whether your food would run out before you got money to buy more?: Never true Do you have trouble paying for medicines?: No Do you have trouble getting transportation to medical appointments?: No Do you have trouble paying your heating and electricity bill?: No Do you have trouble taking care of your child, family member or friend?: No Do you have trouble with day-to-day activities such as bathing, preparing meals, shopping, managing finances, etc.?: No Are you interested in more education?: No Please select the resources that you would like help with: None Currently or been in a relationship where the following occur: No concerns reported THRIVE Score: 0 AUDIT C Alcohol Use Questionnaire (AUDIT-C) 1. How often do you have a drink containing alcohol?: 2-3 times a week 2. How many drinks containing alcohol do you have on a typical day when you are drinking?: 1 or 2 3. How often do you have six or more drinks on one occasion?: Never Total Score: 3 Score Reviewed/Action Taken: Yes LJ-7 AMB Questionnaire LJ-7 Date LJ - 7 assessed: 04/02/23 Feeling nervous, anxious, or on edge: 0 = Not at all Not being able to stop or control worryin = Not at all Worrying too much about different things: 0 = Not at all Trouble relaxin = Not at all Being so restless that it is hard to sit still: 0 = Not at all Becoming easily annoyed or irritable: 0 = Not at all Feeling afraid as if something awful might happen: 0 = Not at all Total LJ-7 score (0-4 normal; 5-9 mild; 10-14 moderate; 15-21 severe): 0 Source: Developed by Drs. Trenton Palomino, Sofia Avery, Luis López and colleagues, with an educational lisa from [employer]. Review of Systems Const Denies chills and Denies fever(s) Eyes Denies blurry vision ENT Denies vertigo, Denies dizziness and Denies sore throat Card Denies chest pain at rest, Denies chest pain with activity, Denies diaphoresis, Denies dyspnea and Denies dyspnea on exertion Resp Denies cough, Denies dyspnea, Denies dyspnea on exertion and Denies wheezing GI Denies abdominal pain, Denies melena, Denies hematochezia, Denies constipation, Denies diarrhea and Denies loose stools Denies hematuria Musc Denies numbness and Denies tingling Skin/Breast Denies lesions Neuro Denies vertigo, Denies dizziness, Denies numbness and Denies tingling Psych Denies anxiety, Denies depression, Denies homicidal ideation, Denies suicidal ideation and Denies other (substance abuse) Aller/Immun Denies wheezing Physical exam (Primary Care) Vital Signs: Last Vital Signs Pulse 60 11/27/23 08:32 BP 130/72 11/27/23 08:32 Pulse Ox 97 11/27/23 08:32 BMI result Body Mass Index 31.2 Tobacco/Smoking Status: Tobacco use Status Tobacco use date assessed 04/02/23 11/27/23 08:30 Patient Tobacco Use Status Never used Tobacco 11/27/23 08:30 e-Cigarette/Vaping Use Never Used 11/27/23 08:30 PHQ-9: PHQ-9 Score PHQ-9: Total score 0 11/27/23 08:30 Depression Screening Interpretation: Negative Thrive Assessment: Date of Thrive Assessment Date Thrive assessed 04/02/23 11/27/23 08:30 Currently or been in a relationship where the following occur: No concerns reported Const General: cooperative Nutritional Appearance: well nourished Orientation/consciousness: patient oriented x3 HENMT Head: Yes normal to inspection, Yes normocephalic and Yes atraumatic Ears: TM's normal bilaterally Eyes General: appearance normal, both eyes and all related structures Alignment and Position: alignment normal and position normal Neck Neck: Yes normal visual inspection, Yes no lymphadenopathy and Yes supple Resp Effort & Inspection: normal respiratory effort Auscultation: clear to auscultation bilaterally Cardio Rate: regular rate Rhythm: regular rhythm Heart sounds: S1 normal heart sound present, S2 normal heart sound present and Murmur heart sound present (very faint) systolic GI Palpation (GI): Soft to palpation and nontender Auscultation: normal bowel sounds Male General Exam: Yes normal external exam Penis: normal penis Skin Other: fair skinned, multiple freckles, scattered papular skin colored lesions throughout Neuro General: patient oriented x3, moves all extremities, no focal motor deficits and deep tendon reflexes 2+ bilaterally Romberg Test: Negative Extrem Other: bilat feet: + sensation with use of monofilament, feet intact, trace sock edema to BLE Psych Appearance: grossly normal Mental Status: mental status grossly normal Speech and movement: Normal speech and movement present Affect: normal affect Attitude: cooperative Thought process: Normal thought process present Thought content: Normal thought content present Insight: Good insight present (Psych) Judgement: Good judgement present (Psych) Assessment and Plan Assessment & Plan (1) Screening PSA (prostate specific antigen): Code(s): Z12.5 - Encounter for screening for malignant neoplasm of prostate Plan: PSA ordered (2) Physical exam: Code(s): Z00.00 - Encounter for general adult medical examination without abnormal findings Plan The patient agreed to the use of a medical coordinator pesticide use for this encounter. Scribed for JOSIAH Odom by Susan Stephens medical coordinator pesticide use, on 11/27/2023 at 08:40 EST. Orders: Orders AMB Hemoglobin A1c Today Z13.9 - Encounter for screening, unspecified Prostate Specific Antigen Scr Today Z12.5 - Encounter for screening for malignant neoplasm of prostate Medications: Refilled gabapentin 300 mg PO BEDTIME 90 days 90 caps 0RF Coding Level of Care Code Est Pt Prev Care >65y(36225) Diagnoses Screening PSA (prostate specific antigen) Z12.5 Physical exam Z00.00
[2023-11-27 08:32] VITALS: BP 130/72; PULSE 60; O2SAT 97; BMI 31.2
== END 2023-11-27 10:57 | disposition home or self-care (01) ==
PROVIDERS: PCP Nurse Practitioner Family; Visit Provider Nurse Practitioner Family
DX: Z12.5 Encounter for screening for malignant neoplasm of prostate (principal); Z00.00 Encounter for general adult medical examination without abnormal findings; Z13.9 Encounter for screening, unspecified

== ENCOUNTER → 2023-11-27 08:12 | Outpatient (BNVA) | payer MEDICARE, SELFPAY | PROVIDERS: PCP Nurse Practitioner Family; Visit Provider Nurse Practitioner Family | DX: Z00.00 Encounter for general adult medical examination without abnormal findings (principal); E11.9 Type 2 diabetes mellitus without complications | CPT/HCPCS: 83036 ==

== ENCOUNTER 2023-12-16 08:39 | Day surgery (SDC) | payer MEDICARE, SELFPAY ==
[2023-12-12 13:18] VITALS: BMI 31.7
--- NOTE | 2023-12-15 09:36 | HO.ANESPROP2 ---
Documented by User: Mary Carmen Liao NP 12/15/23 09:36 HPI - Anesthesia Eval Consult details Narrative: 73yo M for Colonoscopy PMFSH Active Problems Active Problems: All Active Problems Leg pain, bilateral (Acute) Screening for colon cancer (Acute) Abdominal pain (Acute) Chest discomfort (Acute) Hypokalemia (Acute) Bilateral swelling of feet and ankles (Acute) Diabetes (Acute) Newly diagnosed diabetes (Acute) Elevated fasting blood sugar (Acute) HTN (hypertension) (Acute) Screening PSA (prostate specific antigen) (Acute) Physical exam (Acute) Bilateral foot pain (Acute) Neuropathy (Acute) Bilateral shoulder pain (Acute) Angioedema (Acute) Past Medical History Medical History Abdominal pain Asthma Hypercholesteremia Hypertension Surgical History Surgical History No pertinent past surgical history Social History Social History Housing: House Are you a primary health care legal assistant to a significant other at home: No Do you presently have visiting nurse or other home services: No Alcohol intake: current Alcohol intake frequency: a few times a week Alcohol type: wine Patient Tobacco Use Status: Never used Tobacco e-Cigarette/Vaping Use: Never Used Second Hand Smoke Exposure: No Use of substances other than those prescribed or required for medical reasons: No Have you been hit, kicked, punched, or otherwise hurt by someone within the past year? If so, by whom?: No Are you DNR?: No Advance Directives: No Advance Directives Information Provided: Yes Recently lost weight without trying: No service: No Current occupational status: employed Current occupation: part-time [employer] Current occupational exposures/hazards: No Cognitive needs: No Hearing needs: No Vision needs: No Meds Allergies Allergy/AdvReac Type Severity Reaction Status Date / Time Lisinopril-Hydrochlorothiazide Allergy Intermediate swelling Uncoded 11/27/23 09:04 of lips and tongue Home Medications ?Medication ?Instructions ?Recorded ?Confirmed ?Last Taken ?Type cholecalciferol (vitamin D3) 50 50 mcg PO DAILY 06/06/22 11/27/23 Unknown History mcg (2,000 unit) capsule omega 2-zlp-wlf-fish oil 300 1 cap PO DAILY 06/06/22 11/27/23 Unknown History mg-1,000 mg capsule (Fish Oil) Exam Height,Weight and Vital Signs: Height 5 ft 10.5 in Weight 101.605 kg Assessment and Plan Assessment Anesthesia Assessment: Chart Reviewed Documented by User: Sallie Alonso MD 12/16/23 11:01 PMFSH Past Medical History Medical History Abdominal pain Asthma Hypercholesteremia Hypertension Family History Family history of problems with anesthesia: No Surgical History Surgical History No pertinent past surgical history History of Problems with Anesthesia: No Social History Social History Housing: House Are you a primary health care legal assistant to a significant other at home: No Do you presently have visiting nurse or other home services: No Alcohol intake: current Alcohol intake frequency: a few times a week Alcohol type: wine Patient Tobacco Use Status: Never used Tobacco e-Cigarette/Vaping Use: Never Used Second Hand Smoke Exposure: No Use of substances other than those prescribed or required for medical reasons: No Have you been hit, kicked, punched, or otherwise hurt by someone within the past year? If so, by whom?: No Are you DNR?: No Advance Directives: No Advance Directives Information Provided: Yes Recently lost weight without trying: No service: No Current occupational status: employed Current occupation: part-time [employer] Current occupational exposures/hazards: No Cognitive needs: No Hearing needs: No Vision needs: No Meds Allergies Allergy/AdvReac Type Severity Reaction Status Date / Time Lisinopril-Hydrochlorothiazide Allergy Intermediate swelling Uncoded 11/27/23 09:04 of lips and tongue Home Medications ?Medication ?Instructions ?Recorded ?Confirmed ?Last Taken ?Type cholecalciferol (vitamin D3) 50 50 mcg PO DAILY 06/06/22 11/27/23 Unknown History mcg (2,000 unit) capsule omega 7-bsg-fef-fish oil 300 1 cap PO DAILY 06/06/22 11/27/23 Unknown History mg-1,000 mg capsule (Fish Oil) Exam Airway Mallampati Class: II TM Dist: >3cm Neck ROM: Limited Heart: rrr Lungs: cta Assessment and Plan Assessment Anesthesia Assessment: Anesthesia Plan Discussed Final Anesthetic Review Family History of Problems with Anesthesia: No History of Problems with Anesthesia: No NPO: Yes ASA Class: III Final Preanesthetic Review: No Changes in Pt Med Stat, Meds/Allgs Chart Reviewed, Consent Obtained/Reviewed and Anes Risks/Benef Reviewed Patient Risk: Intermediate Anesthetic Plan Anesthetic Plan: MAC:
[2023-12-16 09:12] VITALS: BP 161/80; PULSE 57; RESP 16; TEMP 36.4; O2SAT 97; BMI 31.1
[2023-12-16] MEDS: Lactated Ringers 1,000 ML 100 ML IVCONT (09:25)
[2023-12-16 09:31] LABS: Glucose, Whole Blood 111 mg/dL (60-115)
--- NOTE | 2023-12-16 10:28 | P.HPSUR_ITS ---
Pre-Procedural Eval Section A - 24 Hr Update-Section A only Date of Service: 12/16/23 Section B - Complete if H&P > 30 days Chief Complaint: screening Details of Present Illness: see H&P no changes Relevant Family History (Specify if Yes): No Relevant Social History: None Present Medications: see Short Stay Collaborative assessment Medical History: No relevant PMH Allergies: Allergies Allergy/AdvReac Type Severity Reaction Status Date / Time Lisinopril-Hydrochlorothiazide Allergy Intermediate swelling Uncoded 11/27/23 0 9:04 of lips and tongue Review of Systems Sugical H&P ROS: Negative: Constitution, Cardiovascular, Respiratory, Neurological, Psychiatric, Hem-Onc, Allergic/Immunologic, Gastrointestinal, Genitourinary, Musculoskeletal, Integumentary, Endocrine and Eyes/Ears/Nose/Throat Exam Surgical H&P Exam: Normal: HEENT, Normal: Heart, Normal: Lungs, Normal: Extremities, Normal: Abdomen, Normal: Skin and Normal: Neurological Plan Diagnosis/Plan: Unchanged I have reviewed the history and physical and performed a pertinent physical examination on my patient. No changes have occurred unless specified. Time Spent With Patient Time: Total time managing care of this patient today ____ minutes.
[2023-12-16 11:01] VITALS: BP 103/44; PULSE 61; RESP 16; TEMP 36.6; O2SAT 87
--- NOTE | 2023-12-16 11:15 | OP_ITS ---
DATE OF SERVICE: 12/16/2023 SURGEON: Jose Castro MD INDICATIONS: Colon cancer screening and prior history of adenomatous colon polyps. PREOPERATIVE DIAGNOSIS: POSTOPERATIVE DIAGNOSIS: PROCEDURE PERFORMED: Colonoscopy to the terminal ileum with snare polypectomy and biopsy. ESTIMATED BLOOD LOSS: COMPLICATIONS: ANESTHESIA: Monitored anesthesia care. ASSISTANTS: SPECIMENS: DESCRIPTION OF PROCEDURE: A history and physical was performed. The risks and benefits of the procedure were explained to the patient and informed consent was obtained. The patient was placed in the left lateral decubitus position. A digital rectal exam was performed and revealed a firm enlarged prostate with no evidence of masses. The Olympus pediatric video colonoscope was introduced into the rectum and advanced to the cecum. The cecum was identified by transillumination, palpation, and identification of ileocecal valve. Examination was performed and the scope was removed. He tolerated the procedure well and was returned to recovery area in stable condition. FINDINGS: The terminal ileum was examined and appeared normal. The visualized colonic mucosa was normal. The quality of the prep was good. Two polyps were identified and removed with a combination of snare polypectomy and biopsy forceps. These were located at 40 and 30 cm. Both measured less than 10 mm. There was mild sigmoid diverticulosis. Retroflexed examination showed some small internal hemorrhoids. IMPRESSION: Colon polyps. RECOMMENDATION: Follow up the biopsy results. MD AKIKO Jackson/MISBAHL / [id number]
[2023-12-16 11:16] VITALS: BP 134/69; PULSE 59; RESP 20; O2SAT 94
[2023-12-16 11:30] VITALS: BP 145/78; PULSE 58; RESP 16; TEMP 36.4; O2SAT 97
== END 2023-12-16 12:27 | disposition home or self-care (01) ==
PROVIDERS: PCP Nurse Practitioner Family; Visit Provider Internal Medicine Gastroenterology
PROC: 0DJD8ZZ Inspection of Lower Intestinal Tract, Via Natural or Artificial Opening Endoscopic (ICD-10-PCS; CPT 45378; principal; 2023-12-16 10:00)
DX: Z12.11 Encounter for screening for malignant neoplasm of colon (principal); Z86.0101 Personal history of adenomatous and serrated colon polyps; Z80.0 Family history of malignant neoplasm of digestive organs; K63.5 Polyp of colon; K57.30 Diverticulosis of large intestine without perforation or abscess without bleeding; K64.8 Other hemorrhoids; K21.9 Gastro-esophageal reflux disease without esophagitis; I10 Essential (primary) hypertension; J44.9 Chronic obstructive pulmonary disease, unspecified; E11.9 Type 2 diabetes mellitus without complications; E78.5 Hyperlipidemia, unspecified; Z79.899 Other long term (current) drug therapy; Z88.8 Allergy status to other drugs, medicaments and biological substances
CPT/HCPCS: 45385; 45380; 82947; 88305; J2003; J2704

== ENCOUNTER 2023-12-18 09:45 | Outpatient (AMB) | payer MEDICARE, SELFPAY ==
--- NOTE | 2023-12-18 10:02 | AM.OFFWIN_ITS ---
Intake Vital Signs 12/18/23 10:05 Height 5 ft 11 in Weight 224 lb BMI 31.2 BP 130/80 Blood Pressure Location Rt brachial Position Sitting Pulse 62 Pulse Source Pulse Oximeter Pulse Oximetry (%) 98 Oxygen Delivery Method Room Air Intake Visit Reasons: EP ? pink eye Intake Note: Patient here for left eye redness that has been present since Friday and went to a urgent care and was given drops which have not helped. Patient Tobacco Use Status: Never used Tobacco Allergies Lisinopril-Hydrochlorothiazide Allergy (Intermediate, Uncoded 12/18/23 10:06) swelling of lips and tongue Do you need a note to return to daycare/school/sports/work: No HPI HPI Comments History of Present Illness Details Patient is a 73-year-old male complaining of 4 days of watery left eye. He states his left eye is crusted shut each morning and it leaks fluid as the day goes by which he has been wiping away. He did go to an urgent care when it started 4 days ago and was given polymyxin B drops which she has been using regularly but he ran out of the drops and he thinks it should be resolved by now. He denies any changes in his vision, he denies wearing contacts. He states it is a little bit better but he feels like it should be completely gone by now. REPLACED BY [facility] Medical History Abdominal pain Asthma Hypercholesteremia Hypertension Surgical History No pertinent past surgical history Social History Housing: House Are you a primary career education teacher to a significant other at home: No Do you presently have visiting nurse or other home services: No Alcohol intake: current Alcohol intake frequency: a few times a week Alcohol type: wine Patient Tobacco Use Status: Never used Tobacco e-Cigarette/Vaping Use: Never Used Second Hand Smoke Exposure: No service: No Current occupational status: employed Current occupation: part-time [employer] Current occupational exposures/hazards: No Cognitive needs: No Hearing needs: No Vision needs: No Review of Systems Const All systems reviewed & are unremarkable except as noted in HPI and below Physical Exam Vital Signs: Last Vital Signs Pulse 62 12/18/23 10:05 BP 130/80 12/18/23 10:05 Pulse Ox 98 12/18/23 10:05 Oxygen Delivery Method Room Air 12/18/23 10:05 BMI result Body Mass Index 31.2 Const General: cooperative, healthy appearing, comfortable, no acute distress and well developed Orientation/consciousness: patient oriented x3 Limitations: no limitations HEENT Head: Yes normal to inspection Eyes Alignment and Position: alignment normal and position normal Periorbital: periorbital findings normal Eyelids: Yes eyelid abnormality (Slight swelling left lower eyelid with inner erythema) Conjunctivae: conjunctival abnormal left conjunctival injection and discharge purulent Pupils: Equal, round and reactive pupils present EOM: EOMs intact bilaterally Neck Neck: Yes normal visual inspection and Yes full ROM Resp Effort & Inspection: normal respiratory effort and able to speak in complete sentences Skin General skin exam: no rashes or lesions noted Neuro General: patient oriented x3 Cranial nerves: Yes Equal, round and reactive pupils present Extrem General: Yes normal to inspection Assessment & Plan Assessment & Plan (1) Bacterial conjunctivitis of left eye: Code(s): H10.9 - Unspecified conjunctivitis Plan: Educated patient that he needs to finish the prescription, it is for 7 days, he is only on day 4. As he has run out of the medication, I will send more to his pharmacy. Called the pharmacy to let them know it is in fact the left eye but the system will not allow me to populate the left eye. Plan See above Medications: New polymyxin B sulf-trimethoprim 10,000 unit- 1 mg/mL use every 3 hours while awake; do not exceed 6 doses in 24 hours 1 drp ophthalmic-Right Q3H 7 days 10 mL 0RF Coding Level of Care Code Est Pt Level 3 (36383) Diagnoses Bacterial conjunctivitis of left eye H10.9
[2023-12-18 10:05] VITALS: BP 130/80; PULSE 62; O2SAT 98; BMI 31.2
== END 2023-12-18 10:15 | disposition home or self-care (01) ==
PROVIDERS: PCP Nurse Practitioner Family; Visit Provider Physician Assistant
DX: H10.9 Unspecified conjunctivitis (principal)

== ENCOUNTER → 2023-12-18 09:45 | Outpatient (BNVA) | payer MEDICARE, SELFPAY | PROVIDERS: PCP Nurse Practitioner Family; Visit Provider Physician Assistant | DX: H10.9 Unspecified conjunctivitis (principal) | CPT/HCPCS: 99212 ==

== ENCOUNTER 2024-02-18 08:12 | Outpatient (REF) | payer MEDICARE, SELFPAY ==
--- NOTE | ~2024-02-18 | XR_ITS ---
EXAMINATION: XR CHEST CLINICAL INFORMATION: R06.09 - Other forms of dyspnea COMPARISON: None available. TECHNIQUE: 2 views of the chest were obtained. FINDINGS: Lungs are hyperaerated but grossly clear. Heart and pulmonary vessels normal. XR/XR chest 2V IMPRESSION: No active disease. Electronically signed by: Rashard Bueno MD 02/18/2024 12:53 PM [facility]
[2024-02-18 09:57] LABS: Appearance Urine Clear; Color Urine Yellow; Glucose Urine UA Negative (Negative); Leukocyte Esterase Urine Trace (Negative); MANUAL DIFF FLAG NO; Nitrite Urine Negative (Negative); PH 6.5 (5.0-9.0); Specific Gravity - Urine 1.015 (1.005-1.025); UMIC TRIGGER UACC YES; Urine Blood Negative (Negative); Urine Ketones Negative (Negative); Urine Protein Trace mg/dL (Neg-Trace)
[2024-02-18 09:59] LABS: Bacteria Urine None Seen (None Seen); Hyaline Casts Urine 0-2 /LPF (0-2); RBC Urine 0-2 /HPF (0-2); Squamous Epithelial Cell Urine 0-2 /HPF (0-2); WBC Urine 0-5 /HPF (0-5)
[2024-02-18 10:00] LABS: Basophils Percent Auto 0.6 % (0-2); Eosinophils Absolute Auto 0.2 X10*3/uL (0.0-0.4); Eosinophils Percent Auto 2.8 % (0-4); Imm Gran Abs Auto 0.01 X10*3/uL (0.00-0.03); Imm Gran Pct Auto 0.1 % (0.0-0.4); Lymphocytes Absolute Auto 1.6 X10*3/uL (1.2-4.9); Lymphocytes Percent Auto 21.7 % (20-40); Mean Corpuscular HGB Conc 34.1 g/dl (31.0-36.0); Mean Corpuscular Volume 90.9 fL (80.0-98.0); Mean Platelet Volume 9.2 fL (9.4-12.4); Monocytes Absolute Auto 0.6 X10*3/uL (0.1-1.2); Monocytes Percent Auto 7.8 % (2-11); Neutrophils Absolute Auto 4.9 x10*3/uL (2.0-8.3); Platelet Count 215 X10*3/uL (160-400); Red Blood Count 4.84 X10*6/uL (4.60-5.80); Red Cell Distribution Width 13.6 % (11.0-16.0); White Blood Count 7.3 X10*3/uL (4.8-10.8)
[2024-02-18 10:35] LABS: Alanine Aminotransferase 29 U/L (0-40); Albumin Level 4.1 g/dL (3.5-5.0); Alkaline Phosphatase 87 U/L (39-117); Anion Gap 9 (12-20); Aspartate Amino Transferase 31 U/L (5-37); Bilirubin Total 0.8 mg/dL (0.0-1.0); Blood Urea Nitrogen 11 mg/dL (9-16); Calcium 9.7 mg/dL (8.4-10.2); Carbon Dioxide 31 mmol/L (22-29); Chloride 103 mmol/L (96-108); Cholesterol 203 mg/dL (<200); Estimated Glomerular Filt Rate > 60; Glucose Fasting 110 mg/dL (60-99); HDL Cholesterol 66 mg/dL (>40); Iron 95 mcg/dL (45-160); LDL Cholesterol Calculated 117 mg/dL (<100); Percent Iron Saturation 32 % (15-50); Potassium 4.3 mmol/L (3.3-5.1); Sodium 139 mmol/L (135-145); Total Iron Binding Capacity 293 mcg/dL (228-428); Total Protein 7.4 g/dL (6.5-8.0); Triglycerides 100 mg/dL (<150); Unsaturated Iron Binding 198 ug/dL
[2024-02-18 10:42] LABS: Prostate Specific Antigen Scr 1.62 ng/mL (<0.05-4.0)
[2024-02-18 10:51] LABS: Ferritin 256 ng/mL (20-250); TSH reflex Free T4 2.32 uIU/mL (0.32-4.0)
--- OUTSIDE RECORDS SUMMARY | 2024-02-18 22:59 | XMS_ITS ---
Author Organization [facility] Address [address] [place] [phone] Care Team Providers Care Rig Site Engineer Name Role Phone DANNY KHANNA Primary Care Provider Jose Ruiz Jr REASON FOR VISIT pathology Encounters Encounter Location Date Provider Diagnosis [facility] [address] [place] [phone] 12/30/2023 Jose Castro Jr PLAN OF TREATMENT No Information
--- OUTSIDE RECORDS SUMMARY | 2024-02-18 22:59 | XMS_ITS ---
Author Organization [facility] Address [address] [place] [address] Care Team Providers Care Night Assistant Name Role Phone DANNY KHANNA Primary Care Provider Jose Ruiz Jr Unavailable ALLERGIES No Known Allergies REASON FOR VISIT Patient presents today for continued care of reflux and colon cancer screening. MEDICATIONS Medication SIG (Take, Route, Frequency, Duration) Notes Start Date End Date Status Latanoprost 0.005 % INSTILL ONE DROP IN EACH EYE AT BEDTIME Ophthalmic for 90 Active MiraLax (colon prep) 17 GM/SCOOP mixed with Gatorade or Crystal Light Orally begin at 5:00 p.m. the day before the procedure for 1 day 11/17/2023 Active Lisinopril-hydroCHLOROthiaz jodie 20/25mg Active Pravastatin Sodium 20 MG Oral for 90 Active Gabapentin 300 MG TAKE 1 CAPSULE BY MO UTH AT BEDTIME Oral for 30 Active cloNIDine HCl 0.1 MG TAKE 1 TABLET BY MO UTH EVERYDAY AT BEDTIME Oral for 90 Active amLODIPine Besylate 5 MG TAKE 1 TABLET B Y MOUTH DAILY Oral for 90 Active Metoprolol Succinate ER 25 MG Oral for 90 Active Tamsulosin HCl 0.4 MG TAKE 1 CAPSULE BY MOUTH AT BEDTIME Oral for 90 Active Omeprazole 20mg Acti ve Fish Oil 500 MG 1 capsule Orally Onc e a day Active PROBLEMS Problem Type ICD Code Onset Dates Problem Status W/U Status Risk SNOMED Code Notes Problem Gastroesophageal reflux disease without esophagitis (K21.9) Active confirmed 242862554 VITAL SIGNS BMI 31.68 kg/m2 11/17/2023 Blood pressure systolic 000 mm Hg 09/09/20 24 Blood pressure diastolic 00 mm Hg 024 Height 70.5 in 11/17/2023 Temperature 98.0 degrees Fahrenheit 11/17/19 24 Weight 224 lbs 11/17/2023 Encounters Encounter Location Date Provider Diagnosis [facility] [address] [place] [address] 11/17/2023 Jose Castro Jr Colon cancer screening Z12.11 and Gastroesophageal reflux disease without esophagitis K21.9 ASSESSMENTS Encounter Date Diagnosis Assessment Notes Treatment Notes Treatment Clinical Notes 11/17/2023 Colon cancer screeni ng (ICD-10 - Z12.11) Colonoscopy discharge material was printed 11/17/2023 Gastroesophageal reflux disease without esophagitis (ICD-10 - K21.9) PLAN OF TREATMENT Medication Medication Name Sig Start Date Stop Date Notes MiraLax (colon prep) 17 GM/SCOOP mixed with Gatorade or Crystal Light Orally begin at 5:00 p.m. the day before the procedure for 1 day 11/17/2023 Treatment Notes Assessment Notes Colon cancer screening Colonoscopy disch arge material was printed Future Test Test Name Order Date COLONOSCOPY 11/17/2023 Next Appt Details Follow Up: 1 Year, Reason: Progress Notes * Examination Category Sub-Category Detail Notes General Examination GENERAL APPEARANCE: in no ac smiley distress HEAD: normocephalic EYES: sclera non-icteric NECK/THYROID: no lymphadenopathy HEART: S1, S2 normal, no mu rmurs CHEST: normal shape and exp ansion LUNGS: clear to auscultatio n bilaterally ABDOMEN: soft, nontender, non distended, bowel sounds present, no organomegaly SKIN: anicteric EXTREMITIES: no clubbing, cyanosi s, or edema PSYCH: cognitive function i ntact ORAL CAVITY: mucosa moist
--- OUTSIDE RECORDS SUMMARY | 2024-02-18 22:59 | XMS_ITS | Patient Health Record ---
Author Organization [facility] Address [address] [place] [address] Care Team Providers Care Mixing Roll Operator Name Role Phone DANNY KHANNA Primary Care Provider Jose Ruiz Jr Unavailable ALLERGIES No Known Allergies RESULTS Component Value Reference Range Notes Glucose, Whole Blood Reviewed date:12/17/2023 07:53:20 AM Interpretation: Performing Lab:[facility], [address] [place] [phone] Notes/Report: Glucose, Whole Blood 111 60-115 mg/dL METER # : [id number] Pathology Reviewed date:12/30/2023 03:13:12 PM Interpretation: Performing Lab:[address] [address] Notes/Report: REASON FOR REFERRAL No Information MEDICATIONS Medication SIG (Take, Route, Frequency, Duration) Notes Start Date End Date Status Latanoprost 0.005 % INSTILL ONE DROP IN EACH EYE AT BEDTIME Ophthalmic for 90 Active MiraLax (colon prep) 17 GM/SCOOP mixed with Gatorade or Crystal Light Orally begin at 5:00 p.m. the day before the procedure for 1 day 11/17/2023 Active Lisinopril-hydroCHLOROthiaz jodie 20/25mg Active Omeprazole 20mg Acti ve Fish Oil 500 MG 1 capsule Orally Onc e a day Active Gabapentin 300 MG TAKE 1 CAPSULE [...] MOUTH AT BEDTIME Oral for 90 Active Pravastatin Sodium 20 MG Oral for 90 Active IMMUNIZATIONS Vaccine Route Administration Date Status Comme nts Influenza Unknown 12/08/2017 Administered Influenza Unknown 01/28/2023 Administered SOCIAL HISTORY Sex Assigned At : Social History Observation Description Sex Assigned At Unknown PROBLEMS Problem Type ICD Code Onset Dates Problem Status W/U Status Risk SNOMED Code Notes Problem Colon cancer screening (Z12.11) Active confirmed 376192071 Problem Personal history of colonic polyps (Z86.010) Active confirmed History of poly p of colon (situation) (387312354) 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 (Z79.82) Active confirmed [id number] Problem Gastroesophageal reflux disease without esophagitis (K21.9) Active confirmed 076566145 VITAL SIGNS Temperature 98.0 degrees Fahrenheit 11/17/2023 Blood pressure diastolic 00 mm Hg 11/17/2023 Height 70.5 in 11/17/2023 Blood pressure systolic 000 mm Hg 11/17/2023 Weight 224 lbs 11/17/2023 BMI 31.68 kg/m2 11/17/2023 Encounters Encounter Location Date Provider [place] [facility] [place] [address] [place] [phone] 12/16/2023 Jose Castro Jr Colon cancer screening Z12.11 ; Personal history of colonic polyps Z86.010 and Colon polyps K63.5 [facility] [address] [place] [phone] 11/17/2023 Jose Castro Jr Colon cancer screening Z12.11 and Gastroesophageal reflux disease without esophagitis K21.9 [facility] [address] [place] [phone] 12/30/2023 Jose Castro Jr ASSESSMENTS Encounter Date Diagnosis Assessment Notes Treatment Notes Treatment Clinical Notes 12/16/2023 Colon cancer screeni ng (ICD-10 - Z12.11) 12/16/2023 Personal history of colonic polyps (ICD-10 - Z86.010) 11/17/2023 Colon cancer screeni ng (ICD-10 - Z12.11) Colonoscopy discharge material was printed 11/17/2023 Gastroesophageal reflux disease without esophagitis (ICD-10 - K21.9) 12/16/2023 Colon polyps (ICD-10 - K63.5) PLAN OF TREATMENT Future Test Test Name Order Date UPPER GI ENDOSCOPY 10/14/2012 COLONOSCOPY 10/14/2012 COLONOSCOPY 03/26/2018 COLONOSCOPY 11/17/2023 Insurance Providers Payer Name Payer Address Payer Phone Subscriber Number Group Number Insured Name Patient Relationship to Insured Coverage Start Date Coverage End Date [facility] [address] [place] [phone] [id number] MALA NORWOOD Self - patient is the insured MEDICAL (GENERAL) HISTORY Medical History History ICD Code Hypertension BPH COPD Hyperlipidemia Gastroesophageal reflux dise ase, EGD 2012, no Johnson's esophagus or H. pylori Diabetes mellitus Colon polyps, colonoscopy 2019, five-yea r followup Surgical History Surgery Date(Month/Year)
--- OUTSIDE RECORDS SUMMARY | 2024-02-18 22:59 | XMS_ITS ---
Author Organization [facility] Address [address] [place] [address] Care Team Providers Care Medical Professionals Name Role Phone ROMYKennedy DANNY Primary Care Provider Jose Ruiz Jr REASON FOR VISIT screening PROBLEMS Problem Type ICD Code Onset Dates Problem Status W/U Status Risk SNOMED Code Notes Problem Personal history of colonic polyps (Z86.010) Active confirmed History of polyp of colon (situation) (578636708) Encounters Encounter Location Date Provider Diagnosis [facility] [place] [address] [place] [phone] 12/16/2023 Jose Castro Jr Colon cancer screening Z12.11 ; Personal history of colonic polyps Z86.010 and Colon polyps K63.5 ASSESSMENTS Encounter Date Diagnosis Assessment Notes Treatment Notes Treatment Clinical Notes 12/16/2023 Colon cancer screening (ICD-10 - Z12.11) 12/16/2023 Personal history of colonic polyps (ICD-10 - Z86.010) 12/16/2023 Colon polyps (ICD-10 - K63.5) PLAN OF TREATMENT No Information
== END 2024-02-18 08:13 | disposition home or self-care (01) ==
LOC: HO.HMGCX 08:12
PROVIDERS: PCP Nurse Practitioner Family; Visit Provider Nurse Practitioner Family
DX: E11.9 Type 2 diabetes mellitus without complications (principal); M79.604 Pain in right leg; M79.605 Pain in left leg; Z12.5 Encounter for screening for malignant neoplasm of prostate; R06.09 Other forms of dyspnea
CPT/HCPCS: 36415; 71046; 80053; 80061; 81001; 82550; 82728; 83540; 84153; 84443; 85025; 99212

== ENCOUNTER 2024-02-18 08:31 | Outpatient (AMB) | payer MEDICARE, SELFPAY ==
[2024-02-18 09:19] VITALS: BP 142/80; PULSE 71; TEMP 35.9; O2SAT 94; BMI 32.0
--- NOTE | 2024-02-18 09:19 | AM.OFFWIN_ITS ---
Intake Vital Signs 02/18/24 09:19 Height 5 ft 11 in Weight 229 lb 4 oz BMI 32.0 BP 142/80 H Blood Pressure Location Lt brachial Position Sitting Pulse 71 Pulse Source Pulse Oximeter Temp 96.7 F L Temp Source Temporal Artery Scan Pulse Oximetry (%) 94 Oxygen Delivery Method Room Air Intake Visit Reasons: EP labored breathing, sob while doing things Intake Note: Pt presents to the office today for c/o labored breathing and SOB when doing activites like walking around a grocery store x1 month. Patient Tobacco Use Status: Never used Tobacco Allergies Lisinopril-Hydrochlorothiazide Allergy (Intermediate, Uncoded 02/18/24 09:21) swelling of lips and tongue HPI EP labored breathing, sob while doing things HPI Details This note is constructed using voice recognition software. While every effort has been made to ensure accuracy, wrist closer errors may have been included. The patient is a 73 year old male who presents to the clinic today with dyspnea on exertion for the past month. He denies chest pain, palpitations, shortness of breath at rest. He reports that he has an albuterol inhaler which he has taken on occasion which does seem to help a little bit. He notes that he does have some intermittent leg swelling, which he attributes to use of his blood pressure medicine, amlodipine. He denies fever, chills, any other upper respiratory infection symptoms. [facility] Medical History Abdominal pain Asthma Hypercholesteremia Hypertension Surgical History No pertinent past surgical history Social History Housing: House Are you a primary acute care surgeon to a significant other at home: No Do you presently have visiting nurse or other home services: No Alcohol intake: current Alcohol intake frequency: a few times a week Alcohol type: wine Patient Tobacco Use Status: Never used Tobacco e-Cigarette/Vaping Use: Never Used Second Hand Smoke Exposure: No service: No Current occupational status: employed Current occupation: part-time [employer] Current occupational exposures/hazards: No Cognitive needs: No Hearing needs: No Vision needs: No Review of Systems Const All systems reviewed & are unremarkable except as noted in HPI and below Physical Exam Vital Signs: Last Vital Signs Temp 96.7 F L 02/18/24 09:19 Pulse 71 02/18/24 09:19 BP 142/80 H 02/18/24 09:19 Pulse Ox 94 02/18/24 09:19 Oxygen Delivery Method Room Air 02/18/24 09:19 BMI result Body Mass Index 32.0 Const General: cooperative, healthy appearing, comfortable, no acute distress and well developed Orientation/consciousness: patient oriented x3 Limitations: no limitations HEENT Head: Yes normal to inspection Ears: hearing grossly normal bilaterally General nose exam: Normal external nose present Face and sinus: Yes normal facial exam Eyes General: appearance normal, both eyes and all related structures Neck Neck: Yes normal visual inspection and Yes full ROM Resp Effort & Inspection: normal respiratory effort and able to speak in complete sentences Auscultation: clear to auscultation bilaterally Cardio Rate: regular rate Rhythm: regular rhythm Heart sounds: normal S1 and S2 Skin General skin exam: no rashes or lesions noted Neuro General: patient oriented x3 Extrem Other: +1 BLE edema Assessment & Plan Assessment & Plan (1) Dyspnea: Code(s): R06.00 - Dyspnea, unspecified Qualifiers: Dyspnea type: dyspnea on exertion Qualified Code(s): R06.09 - Other forms of dyspnea Plan: Symptoms ongoing for the past month, with some intermittent increased leg swelling. Chest x-ray suggestive of fluid backup, we will try a short burst of furosemide for diuretic therapy. Advised patient to make an appointment to follow up with his PCP within the next few days, as he may require additional workup. Advised ER with sudden acute worsening of symptoms. Plan See above for full details and plan. Orders: Orders XR chest 2V Today R06.09 - Other forms of dyspnea Medications: New furosemide 20 mg PO DAILY 3 days 3 tabs 0RF Coding Level of Care Code Est Pt Level 3 (23902) Diagnoses Dyspnea on exertion R06.09 Dyspnea type: dyspnea on exertion
== END 2024-02-18 10:20 | disposition home or self-care (01) ==
PROVIDERS: PCP Nurse Practitioner Family; Visit Provider Registered Nurse
DX: R06.09 Other forms of dyspnea (principal)

== ENCOUNTER 2024-04-28 11:19 | Outpatient (AMB) | payer MEDICARE, SELFPAY ==
[2024-04-28 11:30] VITALS: BP 134/76; PULSE 60; RESP 18; TEMP 36.7; O2SAT 97
--- NOTE | 2024-04-28 11:30 | MHC.PC.OV ---
Vital Signs 04/28/24 11:30 Weight 227 lb 6 oz BP 134/76 Blood Pressure Location Lt brachial Position Sitting Respiration 18 Pulse 60 Pulse Source Pulse Oximeter Temp 98.1 F Pulse Oximetry (%) 97 Oxygen Delivery Method Room Air Intake Visit Reasons: Anxiety Allergies Lisinopril-Hydrochlorothiazide Allergy (Intermediate, Uncoded 02/18/24 09:21) swelling of lips and tongue Medication List - Last Reconciled 04/28/24 by DIONISIO MaciasP- albuterol sulfate 90 mcg/actuation (ProAir HFA) 2 puffs inhalation Q4-6H PRN amlodipine 5 mg PO DAILY blood pressure test kit-medium daily blood sugar diagnostic (FreeStyle Lite Strips) test blood sugar once a day blood-glucose meter (FlyfitStyle Lite Meter kit) daily checks buspirone 5 mg PO BID 30 days cholecalciferol (vitamin D3) 50 mcg PO DAILY clonidine HCl 0.1 mg PO BEDTIME diphenhydramine HCl (Allergy (diphenhydramine)) 25 mg PO DAILY PRN 90 days epinephrine (EpiPen) 0.3 mg (0.3 mL) IM Q10M PRN 30 days ezetimibe 10 mg PO DAILY flash glucose sensor (FlyfitStyle Rae 2 Sensor kit) As directed to test blood sugar 4 times per day furosemide 20 mg PO DAILY 3 days gabapentin 300 mg PO BEDTIME 90 days lancets (FreeStyle Lancets) Test blood sugar once a day metoprolol succinate ER 100 mg PO DAILY metoprolol succinate ER 25 mg PO DAILY omega 8-nat-rgd-fish oil 300-1,000 mg (Fish Oil) 1 cap PO DAILY omeprazole 40 mg PO DAILY polymyxin B sulf-trimethoprim 10,000 unit- 1 mg/mL 1 drp ophthalmic-Right Q3H 7 days pravastatin 20 mg PO BEDTIME tamsulosin 0.4 mg PO BEDTIME Tobacco use date assessed: 04/02/23 Dental Screening Dental Screen Date: 04/02/23 HPI Anxiety HPI Details Chief Complaint The patient presents for anxiety management. History of Present Illness The patient is a 73-year-old male presenting with anxiety management needs. He reports a history of using lorazepam many years ago for anxiety management. Currently, his symptoms have persisted without any active treatment. He denies experiencing any suicidal ideation, homicidal thoughts, chest pain, or shortness of breath. The patient seeks assistance to manage his anxiety through medication. pt refuses a therapist. Social History - No specific social determinants of health were discussed. Health Maintenance Review of Systems - Psychiatric: Denies suicidal ideation and homicidal thoughts. - Cardiovascular: Denies chest pain. - Respiratory: Denies shortness of breath. Physical Exam General: Cooperative, healthy appearing, comfortable, no acute distress and well developed Orientation: Patient oriented x3 Limitations: No limitations Head: Normal to inspection Ears: Hearing grossly normal bilaterally Nose: Normal external nose present Face and sinus: Normal facial exam Eyes: Appearance normal, both eyes and all related structures Neck: Normal visual inspection and Yes full ROM Respiratory: Normal respiratory effort and able to speak in complete sentences. Clear to auscultation bilaterally Cardiovascular: Regular rate and rhythm. Normal S1 and S2 GI: Normal to inspection. Soft to palpation and nontender Neuro: Patient oriented x3 Extremities: Normal to inspection Results Plan - Initiate buspirone at 5 mg twice daily. - Consider gradual titration based on symptom management and patient response. Discussion Notes I discussed with the patient the plan to initiate buspirone for his anxiety management at a starting dose of 5 mg twice a day, recognizing it as a low-dose approach. I explained the potential for dosage titration depending on the patient?s response and management of symptoms. The discussion included an overview of buspirone?s mechanism of action and its differences from his previous medication, lorazepam. Patient Instructions - Commence buspirone 5 mg twice daily as prescribed. - Monitor for changes in anxiety levels and report any side effects. - Follow-up as discussed for dosage adjustments if necessary. [facility] Medical History Abdominal pain Asthma Hypercholesteremia Hypertension Surgical History No pertinent past surgical history Social History (Reviewed 12/16/23 @ : by Sallie Alonso MD) Housing: House Are you a primary women's health care nurse practitioner to a significant other at home: No Do you presently have visiting nurse or other home services: No Alcohol intake: current Alcohol intake frequency: a few times a week Alcohol type: wine Patient Tobacco Use Status: Never used Tobacco e-Cigarette/Vaping Use: Never Used Second Hand Smoke Exposure: No service: No Current occupational status: employed Current occupation: part-time [employer] Current occupational exposures/hazards: No Cognitive needs: No Hearing needs: No Vision needs: No Questionnaire PHQ-9 Over the last 2 weeks, how often have you been bothered by any of the following problems? 1. Little interest or pleasure in doing things: several days 2. Feeling down, depressed, or hopeless: several days 3. Trouble falling or staying asleep, or sleeping too much: several days 4. Feeling tired or having little energy: several days 5. Poor appetite or overeating: several days 6. Feeling bad about yourself - or that you are a failure or have let yourself or your family down: not at all 7. Trouble concentrating on things, such as reading the newspaper or watching television: several days 8. Moving or speaking so slowly that other people could have noticed. Or the opposite - being so fidgety or restless that you have been moving around a lot more than usual: not at all 9. Thoughts that you would be better off or of hurting yourself in some way: not at all Total score: 6 Depression Screening Interpretation: Negative Depression Screening Done: Yes 38770 - PHQ-9 Billing: Yes Source: Developed by Drs. Trenton Palomino, Sofia Avery, Luis López and colleagues, with an educational lisa from [employer]. Thrive Questionnaire Date Thrive assessed: 04/28/24 I am a: Patient What is your living situation today?: I have a steady place to live Within the past 12 months, did the food you bought not last and you didn't have the money to get more?: Never true Within the past 12 months, did you worry whether your food would run out before you got money to buy more?: Never true Do you have trouble paying for medicines?: No Do you have trouble getting transportation to medical appointments?: No Do you have trouble paying your heating and electricity bill?: No Do you have trouble taking care of your child, family member or friend?: No Do you have trouble with day-to-day activities such as bathing, preparing meals, shopping, managing finances, etc.?: No Are you currently unemployed and looking for a job?: No Are you interested in more education?: No Please select the resources that you would like help with: None Currently or been in a relationship where the following occur: I choose not to answer THRIVE Score: 0 AUDIT C Alcohol Use Questionnaire (AUDIT-C) 1. How often do you have a drink containing alcohol?: 2-3 times a week 2. How many drinks containing alcohol do you have on a typical day when you are drinking?: 1 or 2 3. How often do you have six or more drinks on one occasion?: Never Total Score: 3 Score Reviewed/Action Taken: Yes LJ-7 AMB Questionnaire LJ-7 Date LJ - 7 assessed: 04/28/24 Feeling nervous, anxious, or on edge: 0 = Not at all Not being able to stop or control worryin = Not at all Worrying too much about different things: 0 = Not at all Trouble relaxin = Not at all Being so restless that it is hard to sit still: 0 = Not at all Becoming easily annoyed or irritable: 0 = Not at all Feeling afraid as if something awful might happen: 0 = Not at all Total LJ-7 score (0-4 normal; 5-9 mild; 10-14 moderate; 15-21 severe): 0 Source: Developed by Drs. Trenton Palomino, Sofia Avery, Luis López and colleagues, with an educational lisa from [employer]. LJ-7 Assessment Billing LJ-7 Assessment Tool: LJ-7 Assessment 00131 Physical exam (Primary Care) Vital Signs: Last Vital Signs Temp 98.1 F 04/28/24 11:30 Pulse 60 04/28/24 11:30 Resp 18 04/28/24 11:30 BP 134/76 04/28/24 11:30 Pulse Ox 97 04/28/24 11:30 Oxygen Delivery Method Room Air 04/28/24 11:30 Tobacco/Smoking Status: Tobacco use Status Tobacco use date assessed 04/02/23 04/28/24 11:34 Patient Tobacco Use Status Never used Tobacco 04/28/24 11:34 e-Cigarette/Vaping Use Never Used 04/28/24 11:34 Depression Screening Interpretation: Negative Thrive Assessment: Date of Thrive Assessment Date Thrive assessed 04/28/24 04/28/24 11:34 Currently or been in a relationship where the following occur: I choose not to answer Coding Level of Care Code Est Pt Level 3 (79117) Diagnoses Anxiety F41.9 Additional Codes LJ-7 Assessment Billing - LJ-7 Assessment Tool: LJ-7 Assessment 56634 ([id number]) PHQ-9 - 48386 - PHQ-9 Billing: Yes ([id number]) Assessment & Plan Assessment & Plan (1) Anxiety: Code(s): F41.9 - Anxiety disorder, unspecified Category: Medical Plan . Orders: Orders AMB EKG-In Office Today F41.9 - Anxiety disorder, unspecified Medications: New buspirone 5 mg PO BID 30 days 60 tabs 3RF
--- OUTSIDE RECORDS SUMMARY | 2024-04-28 12:02 | XMS_ITS ---
Author Organization [facility] Address [address] [place] [phone] Care Team Providers Care Beach Lifeguard Name Role Phone DANNY KHANNA Primary Care Provider Jose Ruiz Jr [phone] REASON FOR VISIT pathology Encounters Encounter Location Date Provider Diagnosis [facility] [address] [place] [phone] 12/30/2023 Jose Castro Jr PLAN OF TREATMENT No Information
--- OUTSIDE RECORDS SUMMARY | 2024-04-28 12:02 | XMS_ITS ---
Author Organization [facility] Address [address] [place] [address] Care Team Providers Care Obstetrical Anesthesiologist Name Role Phone DANNY KHANNA Primary Care [...] reflux disease without esophagitis (K21.9) Active confirmed 909021082 VITAL SIGNS BMI 31.68 kg/m2 11/17/2023 Blood pressure systolic 000 mm Hg 09/09/20 24 Blood pressure diastolic 00 mm Hg 024 Height 70.5 in 11/17/2023 Temperature 98.0 degrees Fahrenheit 11/17/19 24 Weight 224 lbs 11/17/2023 Encounters Encounter Location Date Provider Diagnosis [facility] [address] [place] [address] 11/17/2023 Jose Castro Jr Colon cancer screening [...]
--- OUTSIDE RECORDS SUMMARY | 2024-04-28 12:02 | XMS_ITS | Patient Health Record ---
Author Organization [facility] Address [address] [place] [address] Care Team Providers Care Rig Welder Name Role Phone DANNY KHANNA Primary Care Provider Jose Ruiz Jr Unavailable ALLERGIES No Known Allergies RESULTS Component Value Reference Range Notes Glucose, Whole Blood Reviewed date:12/17/2023 07:53:20 AM Interpretation: Performing Lab:[facility], [address] [place] [phone] Notes/Report: Glucose, Whole Blood 111 60-115 mg/dL METER # : [id number] Pathology Reviewed date:12/30/2023 03:13:12 PM Interpretation: Performing Lab:[address] [address] Notes/Report: REASON FOR REFERRAL No Information MEDICATIONS Medication SIG (Take, Route, Frequency, Duration) Notes Start Date End Date Status Latanoprost 0.005 % INSTILL ONE DROP IN EACH EYE AT BEDTIME Ophthalmic for 90 Active MiraLax (colon prep) 17 GM/SCOOP mixed with Gatorade or Crystal Light Orally begin at 5:00 p.m. 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) use of aspirin (Z79.82) Active confirmed 487631821839254 Problem Gastroesophageal reflux disease without esophagitis (K21.9) Active confirmed 197068608 VITAL SIGNS Temperature 98.0 degrees Fahrenheit 11/17/2023 Blood pressure diastolic 00 mm Hg 11/17/2023 Height 70.5 in 11/17/2023 Blood pressure systolic 000 mm Hg 11/17/2023 Weight 224 lbs 11/17/2023 BMI 31.68 kg/m2 11/17/2023 Encounters Encounter Location Date Provider Diagnosis [facility] [place] [address] [place] [phone] 12/16/2023 Jose Castro Jr Colon cancer screening Z12.11 ; Personal history of colonic polyps Z86.010 and Colon polyps K63.5 [facility] [address] [place] [phone] 11/17/2023 Jose Castro Jr Colon cancer screening Z12.11 and Gastroesophageal reflux disease without esophagitis K21.9 [facility] [address] [place] [phone] 12/30/2023 Jose Castro Jr ASSESSMENTS Encounter Date [...] Insured Coverage Start Date Coverage End Date [facility] [address] [place] [address] [id number] MALA NORWOOD Self - patient is the insured MEDICAL (GENERAL) HISTORY Medical History History ICD Code Hypertension BPH COPD Hyperlipidemia Gastroesophageal reflux dise ase, EGD 2012, no Johnson's esophagus or H. pylori Diabetes mellitus Colon polyps, colonoscopy 2019, five-yea r followup Surgical History Surgery Date(Month/Year)
--- OUTSIDE RECORDS SUMMARY | 2024-04-28 12:02 | XMS_ITS ---
Author Organization [facility] Address [address] [place] [address] Care Team Providers Care President Educational Institution Name Role Phone ROMYKennedy DANNY Primary Care Provider Jose Ruiz Jr [phone] REASON FOR VISIT screening PROBLEMS Problem Type ICD Code Onset Dates Problem Status W/U Status Risk SNOMED Code Notes Problem Personal history of colonic polyps (Z86.010) Active confirmed History of polyp of colon (situation) (246731177) Encounters Encounter Location Date Provider [place] [facility] [place] [address] [place] [phone] 12/16/2023 Jose Castro Jr Colon cancer screening [...]
== END 2024-04-28 12:11 | disposition home or self-care (01) ==
PROVIDERS: PCP Nurse Practitioner Family; Visit Provider Nurse Practitioner Family
DX: F41.9 Anxiety disorder, unspecified (principal)

== ENCOUNTER → 2024-04-28 11:19 | Outpatient (BNVA) | payer MEDICARE, SELFPAY | PROVIDERS: PCP Nurse Practitioner Family; Visit Provider Nurse Practitioner Family | DX: F41.9 Anxiety disorder, unspecified (principal) | CPT/HCPCS: 96127; 99212 ==

== ENCOUNTER 2024-06-28 08:09 | Outpatient (AMB) | payer MEDICARE, SELFPAY ==
[2024-06-28 08:12] VITALS: BP 124/72; PULSE 60; RESP 18; TEMP 36.6; O2SAT 98; BMI 31.5
--- NOTE | 2024-06-28 08:12 | MHC.PC.OV ---
Vital Signs 06/28/24 08:12 Height 5 ft 11 in Weight 226 lb BMI 31.5 BP 124/72 Blood Pressure Location Rt brachial Position Sitting Respiration 18 Pulse 60 Pulse Source Pulse Oximeter Temp 97.8 F Temp Source Oral Pulse Oximetry (%) 98 Oxygen Delivery Method Room Air Intake Visit Reasons: 6 months f/up - see comments Intake Note: Pt is here today for 6 months follow up visit. Allergies Lisinopril-Hydrochlorothiazide Allergy (Intermediate, Uncoded 06/28/24 08:14) swelling of lips and tongue Tobacco use date assessed: 06/28/24 Fall risk assessment: No Falls in past year Last assessed Fall Risk: 06/28/24 Dental Screening Dental Screen Date: 06/28/24 Did you have a dental visit in the last 12 months?: Yes Did you have a dental problem in the last 6 months where you did not have access to dental care?: No Was dental information given to patient?: Patient has dentist HPI 6 months f/up - see comments HPI Details Chief Complaint Patient complains of increased wheezing and swelling in the legs. History of Present Illness The patient is a 74-year-old male presenting with multiple health concerns including increased wheezing and bilateral lower extremity swelling. His asthma has exacerbated, partly due to his beta agonist inhaler. He reports slight fatigue with exertion and a history of well-controlled diabetes for which an A1c test is planned to assess current management. Additionally, he reports significant lower extremity edema, particularly worse on the left side. HTN: stable. NOTE: The patient has a side note regarding a surveyor geodetic visit, next week. Social History Health Maintenance Review of Systems - Respiratory: Reports increased wheezing. - Endocrine: Reports fatigue with exertion, has diabetes mellitus. - Cardiovascular: Reports bilateral lower extremity swelling, with greater swelling on the left. -denies any fevers, chills, excessive salt intake, N/V, weeping lower extrem. Physical Exam General: Cooperative, healthy appearing, comfortable, no acute distress and well developed Orientation: Patient oriented x3 Limitations: No limitations Head: Normal to inspection Ears: Hearing grossly normal bilaterally Nose: Normal external nose present Face and sinus: Normal facial exam Eyes: Appearance normal, both eyes and all related structures Neck: Normal visual inspection and Yes full ROM Respiratory: Normal respiratory effort and able to speak in complete sentences. Clear to auscultation bilaterally Cardiovascular: Regular rate and rhythm. Normal S1 and S2. Faint systolic murmur present GI: Normal to inspection. Soft to palpation and nontender Skin: No rashes or lesions noted Neuro: Patient oriented x3 Extremities: Swelling to bilateral extremities, left greater than right, +1 pitting edema noted. Past dorsalis pedis pulse more difficult to find on the right and the left, + sensation with use of monofilament Results Plan The intervention for the patient's increased wheezing involves the prescription of a new beta agonist inhaler. Addressing fatigue in the context of his diabetes, I will obtain laboratory tests including an A1c. The bilateral lower extremity swelling will be investigated by assessing BNP levels and conducting an echocardiogram to evaluate cardiac health. These measures will help in diagnosing and managing the possible cardiovascular aspect of his symptoms. The patient's concurrent dermatology appointment remains on his schedule. Discussion Notes I discussed with the patient the likelihood that his increased wheezing could be associated with the expiration of his beta agonist inhaler and planned to refill the prescription. We talked about the importance of an A1c test to assess his diabetes management in relation to his reported fatigue. As for the edema in his legs, I explained that we need to rule out cardiac issues through BNP measurements, an echocardiogram, and will order a US of BLE. Consents for the suggested diagnostic studies were obtained, and I provided information on potential follow-up care. The patient was advised on what to monitor in terms of symptoms worsening. Patient Instructions - Use your new inhaler as prescribed for wheezing. - Follow up with scheduled laboratory tests for diabetes management. - Monitor leg swelling and report any significant changes. - Proceed with your surveyor geodetic visit as planned. - Follow up for results of echocardiogram and BNP testing. [facility] Medical History Abdominal pain Asthma Hypercholesteremia Hypertension Surgical History No pertinent past surgical history Social History Housing: House Are you a primary healthcare financial analyst to a significant other at home: No Do you presently have visiting nurse or other home services: No Alcohol intake: current Alcohol intake frequency: a few times a week Alcohol type: wine Patient Tobacco Use Status: Never used Tobacco e-Cigarette/Vaping Use: Never Used Second Hand Smoke Exposure: No service: No Current occupational status: employed Current occupation: part-time [employer] Current occupational exposures/hazards: No Cognitive needs: No Hearing needs: No Vision needs: Yes Questionnaire PHQ-9 Over the last 2 weeks, how often have you been bothered by any of the following problems? 1. Little interest or pleasure in doing things: not at all 2. Feeling down, depressed, or hopeless: not at all 3. Trouble falling or staying asleep, or sleeping too much: not at all 4. Feeling tired or having little energy: not at all 5. Poor appetite or overeating: not at all 6. Feeling bad about yourself - or that you are a failure or have let yourself or your family down: not at all 7. Trouble concentrating on things, such as reading the newspaper or watching television: not at all 8. Moving or speaking so slowly that other people could have noticed. Or the opposite - being so fidgety or restless that you have been moving around a lot more than usual: not at all 9. Thoughts that you would be better off or of hurting yourself in some way: not at all Total score: 0 Depression Screening Interpretation: Negative Depression Screening Done: Yes 45928 - PHQ-9 Billing: Yes Source: Developed by Drs. Trenton Palomino, Sofia Avery, Luis López and colleagues, with an educational lisa from [employer]. Thrive Questionnaire Date Thrive assessed: 04/28/24 I am a: Patient What is your living situation today?: I have a steady place to live Within the past 12 months, did the food you bought not last and you didn't have the money to get more?: Never true Within the past 12 months, did you worry whether your food would run out before you got money to buy more?: Never true Do you have trouble paying for medicines?: No Do you have trouble getting transportation to medical appointments?: No Do you have trouble paying your heating and electricity bill?: No Do you have trouble taking care of your child, family member or friend?: No Do you have trouble with day-to-day activities such as bathing, preparing meals, shopping, managing finances, etc.?: No Are you currently unemployed and looking for a job?: No Are you interested in more education?: No Please select the resources that you would like help with: None Currently or been in a relationship where the following occur: I choose not to answer THRIVE Score: 0 LJ-7 AMB Questionnaire LJ-7 Date LJ - 7 assessed: 04/28/24 Source: Developed by Drs. Trenton Palomino, Sofia Avery, Luis López and colleagues, with an educational lisa from [employer]. Physical exam (Primary Care) Vital Signs: Last Vital Signs Temp 97.8 F 06/28/24 08:12 Pulse 60 06/28/24 08:12 Resp 18 06/28/24 08:12 BP 124/72 06/28/24 08:12 Pulse Ox 98 06/28/24 08:12 Oxygen Delivery Method Room Air 06/28/24 08:12 BMI result Body Mass Index 31.5 Tobacco/Smoking Status: Tobacco use Status Tobacco use date assessed 06/28/24 06/28/24 08:18 Patient Tobacco Use Status Never used Tobacco 06/28/24 08:18 e-Cigarette/Vaping Use Never Used 06/28/24 08:18 PHQ-9: PHQ-9 Score PHQ-9: Total score 0 06/28/24 08:18 Depression Screening Interpretation: Negative Thrive Assessment: Date of Thrive Assessment Date Thrive assessed 04/28/24 06/28/24 08:18 Currently or been in a relationship where the following occur: I choose not to answer Coding Level of Care Code Est Pt Level 4 (12080) Diagnoses Wheezing R06.2 Sleep apnea G47.30 HTN (hypertension) I10 Swelling of both lower extremities M79.89 Asthma J45.909 Diabetes E11.9 Additional Codes PHQ-9 - 78479 - PHQ-9 Billing: Yes ([id number]) Assessment & Plan Assessment & Plan (1) Wheezing: Code(s): R06.2 - Wheezing Category: Medical (2) Sleep apnea: Code(s): G47.30 - Sleep apnea, unspecified Category: Medical (3) HTN (hypertension): Code(s): I10 - Essential (primary) hypertension Category: Medical (4) Swelling of both lower extremities: Code(s): M79.89 - Other specified soft tissue disorders Category: Medical (5) Asthma: Code(s): J45.909 - Unspecified asthma, uncomplicated Category: Medical (6) Diabetes: Code(s): E11.9 - Type 2 diabetes mellitus without complications Category: Medical (7) Swelling of both lower extremities: Code(s): M79.89 - Other specified soft tissue disorders Category: Medical Plan . Orders: Orders TSH reflex Free T4 Today G47.30 - Sleep apnea, unspecified, I10 - Essential (primary) hypertension, R06.2 - Wheezing Comprehensive Met. Panel Today G47.30 - Sleep apnea, unspecified, I10 - Essential (primary) hypertension, R06.2 - Wheezing Resp Allergy Profile Region I Today J45.909 - Unspecified asthma, uncomplicated Microalbumin, Random (w Creat) Today E11.9 - Type 2 diabetes mellitus without complications CA echo transthoracic complete Today M79.89 - Other specified soft tissue disorders Pulmonary Test/Procedure Today R06.2 - Wheezing B Type Natriuretic Peptide Today G47.30 - Sleep apnea, unspecified, I10 - Essential (primary) hypertension, R06.2 - Wheezing US venous duplex LE BI Today M79.89 - Other specified soft tissue disorders Immunoglobulin E Today J45.909 - Unspecified asthma, uncomplicated Hemoglobin A1c Today E11.9 - Type 2 diabetes mellitus without complications Referrals Sleep Medicine Referral G47.30 - Sleep apnea, unspecified Medications: New albuterol sulfate 90 mcg/actuation (Ventolin HFA) 2 puffs inhalation Q6H PRN 8.5 grams 1RF shortness of breath or wheezing Discontinued albuterol sulfate 90 mcg/actuation (ProAir HFA) Discontinued Reason: Doctor's Order 2 puffs inhalation Q4-6H PRN 25.5 grams 1RF shortness of breath or wheezing
--- OUTSIDE RECORDS SUMMARY | 2024-06-28 08:13 | XMS_ITS ---
Author Organization [facility] Address [address] [place] [address] Care Team Providers Care Drum Attendant Name Role Phone DANNY KHANNA Primary Care Provider Jose Ruiz Jr Unavailable Allergies No Known Allergies REASON FOR VISIT Patient presents today for continued care of reflux and colon cancer screening. Medications Medication SIG (Take, Route, Frequency, Duration) Notes [...] 300 MG TAKE 1 CAPSULE BY MO UT AT BEDTIME Oral for 30 Active cloNIDine HCl 0.1 MG TAKE 1 TABLET BY MO UT EVERYDAY AT BEDTIME Oral for 90 Active amLODIPine Besylate 5 MG TAKE 1 TABLET B Y MOUTH DAILY Oral for 90 Active Metoprolol Succinate ER 25 MG Oral for 90 Active Tamsulosin HCl 0.4 MG TAKE 1 CAPSULE BY MOUTH AT BEDTIME Oral for 90 Active Omeprazole 20mg Acti ve Fish Oil 500 MG 1 capsule Orally Onc e a day Active Problems Problem Type SNOMED Code ICD Code Onset Dates Problem Status W/U Status Risk Notes Problem [id number] Gastroesophageal reflux disease without esophagitis (K21.9) Active confirmed Vital Signs Temperature 98.0 degrees Fahrenheit 11/17/19 24 Blood pressure systolic 000 mm Hg 11/17/19 24 Blood pressure diastolic 00 mm Hg 024 Height 70.5 in 11/17/2023 Weight 224 lbs 11/17/2023 BMI 31.68 kg/m2 11/17/2023 Encounters Encounter Location Date Provider Diagnosis [facility] [address] [place] [address] 11/17/2023 Jose Castro Jr Colon cancer screening Z12.11 and Gastroesophageal reflux disease without esophagitis K21.9 Assessments Encounter Date Diagnosis (ICD Code) Assessment Notes Treatment Notes Treatment Clinical Notes Section Notes 11/17/2023 Colon cancer screening (ICD-10 - Z12.11) Colonoscopy discharge material was printed We discussed gastroesophageal reflux disease today. We discussed diet, lifestyle modifications, and weight management regarding the treatment of reflux. She will continue dietary measures. He is due for colonoscopy. This will be arranged. He understands risks and benefits of the procedure and agrees to proceed. He is advised stop fish oil one week before the procedure. 11/17/2023 Gastroesophageal reflux disease without esophagitis (ICD-10 - K21.9) We discussed gastroesophageal reflux disease today. We discussed diet, lifestyle modifications, and weight management regarding the treatment of reflux. She will continue dietary measures. He is due for colonoscopy. This will be arranged. He understands risks and benefits of the procedure and agrees to proceed. He is advised stop fish oil one week before the procedure. Plan Of Treatment Medication Medication Name Sig Start Date Stop [...] Up: 1 Year, Reason: Progress Notes * MARCO NORWOODENCEDOB: 0 (73 yo M)Acc No.[id number]:11/17/2023 Progress Notes Patient:?MALA NORWOOD Provider:?Jose Castro MD :1950???Age:73 Y???Sex:Male Eliu e:11/17/2023 Address:[address] [place], [place] [id number] Pcp:DANNY KHANNA Subjective: * Chief Complaints: * ???1. Patient presents today for continued care of reflux and colon cancer screening.. * HPI: ???New symptom(s):? The patient is a pleasant 73-year-old man seen today in consultation. He has a long-standing history of gastroesophageal reflux disease with substernal burning precipitated by typical foods including spicy foods and fatty foods. He has no dysphagia, hematemesis, or melena. Weight and appetite have been stable. Reflux symptoms had been treated in the past with omeprazole 20 mg daily. He has been able to manage these with diet and is currently not taking omeprazole. ?Upper endoscopy in 2012th showed no evidence of Johnson's esophagus or H. pylori. Multiple colon polyps are identified in the past, most recently at his colonoscopy in 2019 which did show a tubular adenoma. We reviewed this today. He is due for followup. He has no complaints of rectal bleeding or change in his bowel habits. He does note some loose stools with fatty food. Overall, he feels like he is doing well for his age. * ROS:?General/Constitutional:?Change in appetite?denies.?Fatigue?denies.?ENT:?Patient denies?difficulty swallowing.?Respiratory:?Patient denies?shortness of breath.?Cardiovascular:?Patient denies?chest pain.?Gastrointestinal:?Comments?See HPI for details.?Genitourinary:?Difficulty urinating?denies.?Incontinence?denies.?Musculoskeletal:?Patient denies?muscle aches.?Skin:?Patient denies?pruritis.?Neurologic:?Patient denies?low back pain.?Psychiatric:?Patient denies?mental or physical abuse.? * Medical History:?Hypertensio n, BPH, COPD, Hyperlipidemia, Gastroesophageal reflux disease, EGD 2012, no Johnson's esophagus or H. pylori, Diabetes mellitus, Colon polyps, colonoscopy 2019, five-year followup. * Family History:?Father: dece ased, rectal cancer.?Mother: .?Siblings: brother had liver cancer.? His brother\'s liver cancer was a duodenal primary. Father had colon cancer. * Social History:?Tobacco Use:?Tobacco Use/Smoking?Are you a: nonsmoker.?Drugs/Alcohol:?Alcohol Screen?Points: 4, Interpretation: Positive.?Miscellaneous:?Marital status: . Occupation: retired. * Medications:?Taking Lisinopr il-hydroCHLOROthiazide 20/25mg , Taking Omeprazole 20mg , Taking Fish Oil 500 MG Capsule 1 capsule Orally Once a day, Taking Gabapentin 300 MG Capsule TAKE 1 CAPSULE BY MOUTH AT BEDTIME Oral , Taking cloNIDine HCl 0.1 MG Tablet TAKE 1 TABLET BY MOUTH EVERYDAY AT BEDTIME Oral , Taking amLODIPine Besylate 5 MG Tablet TAKE 1 TABLET BY MOUTH DAILY Oral , Taking Metoprolol Succinate ER 25 MG Tablet Extended Release 24 Hour Oral , Taking Tamsulosin HCl 0.4 MG Capsule TAKE 1 CAPSULE BY MOUTH AT BEDTIME Oral , Taking Pravastatin Sodium 20 MG Tablet Oral , Taking Latanoprost 0.005 % Solution INSTILL ONE DROP IN EACH EYE AT BEDTIME Ophthalmic , Discontinued Lovastatin 40mg , Medication List reviewed and reconciled with the patient * Allergies:?N.K.D.A. Objective: * Vitals:?Wt: 224 lbs, Ht: 70. 5 in, BMI:31.68 Index, BP: 000/00 mm Hg, Temp: 98.0. * Examination: ???General Examination: ?GENERAL APPEARANCE:?in no acute distress.?HEAD:?normocephalic.?EYES:?sclera non-icteric.?ORAL CAVITY:?mucosa moist.?NECK/THYROID:?no lymphadenopathy.?SKIN:?anicteric.?HEART:?S1, S2 normal, no murmurs.?LUNGS:?clear to auscultation bilaterally.?CHEST:?normal shape and expansion.?ABDOMEN:?soft, nontender, nondistended, bowel sounds present, no organomegaly .?EXTREMITIES:?no clubbing, cyanosis, or edema.?PSYCH:?cognitive function intact.? Assessment: * Assessment: 1.?Gastroesophageal reflux d isease without esophagitis - K21.9 (Primary)?2.?Colon cancer screening - Z12.11? We discussed gastroesophagea l reflux disease today. We discussed diet, lifestyle modifications, and weight management regarding the treatment of reflux. She will continue dietary measures. He is due for colonoscopy. This will be arranged. He understands risks and benefits of the procedure and agrees to proceed. He is advised stop fish oil one week before the procedure. Plan: * Treatment: Notes: Colonoscopy discharge material was printed?? * Preventive Medicine:? ??Counseling:?Care goal follow-up plan:?Above Normal BMI Follow-up?Giving encouragement to exercise,?BMI management provided?Yes.? ??Screenings:?Fall Risk Screening?Fall Risk Assessment:?No falls in the past year.? * Follow Up:?1 Year * * Sign off status: Completed true * Provider:?Jose Castro MD Date:?0 11/17/2023 Generated for Ana mauro/Mari/eTjosselinsmitting on:?06/28/2024 08:13 AM EDT History and Physical Notes * HPI (History of Present Illness) Category Sub-Category Detail Notes Category Not es New symptom(s) The patient is a pleasant 73-year-old man seen today in consultation. He has a long-standing history of gastroesophageal reflux disease with substernal burning precipitated by typical foods including spicy foods and fatty foods. He has no dysphagia, hematemesis, or melena. Weight and appetite have been stable. Reflux symptoms had been treated in the past with omeprazole 20 mg daily. He has been able to manage these with diet and is currently not taking omeprazole. Upper endoscopy in 2012 showed no evidence of Johnson's esophagus or H. pylori. Multiple colon polyps are identified in the past, most recently at his colonoscopy in 2019 which did show a tubular adenoma. We reviewed this today. He is due for followup. He has no complaints of rectal bleeding or change in his bowel habits. He does note some loose stools with fatty food. Overall, he feels like he is doing well for his age. Examination Category Sub-Category Detail Notes Category Not es General Examination GENERAL APPEARANCE: in no acute di stress HEAD: normocephalic EYES: sclera non-icteric NECK/THYROID: no lymphadenopathy HEART: S1, S2 normal, no mu rmurs CHEST: normal shape and exp ansion LUNGS: clear to auscultatio n bilaterally ABDOMEN: soft, nontender, non distended, bowel sounds present, no organomegaly SKIN: anicteric EXTREMITIES: no clubbing, cyanosi s, or edema PSYCH: cognitive function i ntact ORAL CAVITY: mucosa moist
--- OUTSIDE RECORDS SUMMARY | 2024-06-28 08:13 | XMS_ITS ---
Author Organization [facility] Address [address] [place] [address] Care Team Providers Care Records Custodian Name Role Phone KLEVERDONA DANNY Primary Care Provider Jose Ruiz Jr REASON FOR VISIT pathology Encounters Encounter Location Date Provider Diagnosis [facility] [address] [place] [address] 12/30/2023 Jose Castro Jr Plan Of Treatment No Information Progress Notes * ADRIAN NORWOODOB: 0 (73 yo M)Acc No.[id number]:12/30/2023 Patient:?MALA NORWOOD :1950???Age:73 Y???Sex:Male Address:[address] [place] [id number] * true * Date:? Generated for Ana mauro/Mari/eTransmitting on:?06/28/2024 08:12 AM EDT
--- OUTSIDE RECORDS SUMMARY | 2024-06-28 08:13 | XMS_ITS | Patient Health Record ---
Author Organization [facility] Address [address] [place] [address] Care Team Providers Care Fountain Pen Turner Name Role Phone DANNY MARIA Primary Care Provider Jose Ruiz Jr Allergies No Known Allergies Results Component Value Reference Range Notes Glucose, Whole Blood Reviewed date:12/17/2023 07:53:20 AM Interpretation: Performing Lab:[facility], [address] [place] [phone] Notes/Report: Glucose, Whole Blood 111 60-115 mg/dL METER # : [id number] Pathology Reviewed date:12/30/2023 03:13:12 PM Interpretation: Performing Lab:[facility], [address] [place] [phone] Notes/Report: ----- Name: Hood Morris Age/Sex: 73/M : 1950 Unit#: [id number] Attend Dr: Jose Castro MD Re12/16/23 Status : [facility] Location: [facility] Disch: ----- SPEC : [id number] RECD : 12/16/23 STATUS: KRISSY MEJIAS NUM: [id number] RUPERT: 12/16/[address] [facility] [address]: Jose Castro MD ENTERED: 12/16/23 41 SP TYPE: Surgical OTHR DR: Danny Maria [facility]- ORDERED: HE Stain/6, Gross Micro L4/2 Diagnosis A. Colon, polyp at 4 0 cm, polypectomy: Cauterized colonic mucosa with features suggestive of hyperplastic polyp (cautery precludes definitive classification). B. Colon, polyp at 3 0 cm, polypectomy: Clinically polypoid colonic mucosa noted; negative for a hyperplastic or neoplastic process. Clinical History Pre-Op Dx: Screening Post-Op Dx: Polyps x2 Microscopic Description Microscopic sections reviewed. Material Received A. Polyp at 40 cm B. Polyp at 30 cm Gross Description Received in two parts. Part A: Received in formalin labeled ?polyp at 40 cm? is a 0.3 cm dietrich irregular tissue fragment with scant debris, submitted in toto in a cassette labeled A. Part B: Received in formalin labeled ?polyp at 30 cm? is a 0.3 cm dietrich-pink papular tissue fragment, submitted in toto in a cassette labeled B. CEDS Copies To: Jose Castro MD [facility] [address] [place] [address] [address] [place] [address] [phone] CONTINUED ON NEXT PAGE ----- Name: Hood Morris Age/Sex: 73/M : 1950 Unit#: [id number] Attend Dr: Jose Castro MD Re12/16/23 Status : [facility] Location: [facility] Disch: ----- SPEC : [id number] RECD : 12/16/23 STATUS: KRISSY MEJIAS NUM: [id number] RUPERT: 12/16/[address] [facility] [address]: Jose Castro MD ENTERED: 12/16/23 41 SP TYPE: [facility] RAD[facility] Stain/6, Nallely Oswald L4/2 Copies To: (Continued) Danny Maria SUPERVISOR PAINT DEPARTMENTAKIKO [address] [address] ----- Signed (signature on file) Mireya Peralta MD 12/17/23 1600 ----- END OF REPORT Reason For Referral No Information Medications Medication SIG (Take, Route, Frequency, Duration) [...] Sodium 20 MG Oral for 90 Active Immunizations Vaccine Route Administration Date Status Comme nts Influenza Unknown 12/08/2017 Administered Influenza Unknown 01/28/2023 Administered Problems Problem Type SNOMED Code ICD Code Onset Dates Problem Status W/U Status Risk Notes Problem 321776678 Colon cancer screening (Z12.11) Active confirmed Problem History of polyp of colon (situation) (216290065) Personal history of colonic polyps (Z86.010) Active confirmed Problem 692841301370478 senior living (curre nt) use of aspirin (Z79.82) Active confirmed Problem 665081457 Gastroesophageal reflux disease without esophagitis (K21.9) Active confirmed Vital Signs Temperature 98.0 degrees Fahrenheit 11/17/2023 Blood pressure diastolic 00 mm Hg 11/17/2023 Height 70.5 in 11/17/2023 Blood pressure systolic 000 mm Hg 11/17/2023 Weight 224 lbs 11/17/2023 BMI 31.68 kg/m2 11/17/2023 Encounters Encounter Location Date Provider Diagnosis [facility] [place] [address] [place] [phone] 12/16/2023 Jose Castro Jr Colon cancer screening Z12.11 ; Personal history of colonic polyps Z86.010 and Colon polyps K63.5 [facility] [address] [place] [address] 11/17/2023 Jose Castro Jr Colon cancer screening Z12.11 and Gastroesophageal reflux disease without esophagitis K21.9 [facility] [address] [place] [address] 12/30/2023 Jose Castro Jr Assessments Encounter Date Diagnosis (ICD Code) Assessment Notes Treatment Notes Treatment Clinical Notes Section Notes 12/16/2023 Colon cancer screening (ICD-10 - Z12.11) 12/16/2023 Personal history of colonic polyps (ICD-10 - Z86.010) 11/17/2023 Colon cancer screening (ICD-10 - Z12.11) [...] fish oil one week before the procedure. 12/16/2023 Colon polyps (ICD-10 - K63.5) Plan Of Treatment Future Test Test Name Order Date UPPER GI ENDOSCOPY 10/14/2012 COLONOSCOPY 10/14/2012 COLONOSCOPY 03/26/2018 COLONOSCOPY 11/17/2023 Insurance Providers Payer Name Payer Address Payer Phone Subscriber Number Group Number Insured Name Patient Relationship to Insured Coverage Start Date Coverage End Date [facility] [address] [place] [phone] [id number] HOOD MORRIS Self - patient is the insured Medical (General) History Medical History History ICD Code Hypertension BPH COPD Hyperlipidemia Gastroesophageal reflux dise ase, EGD 2012, no Johnson's esophagus or H. pylori Diabetes mellitus Colon polyps, colonoscopy 2019, five-yea r followup Surgical History Surgery Date(Month/Year)
--- OUTSIDE RECORDS SUMMARY | 2024-06-28 08:13 | XMS_ITS ---
Author Organization [facility] Address [address] [place] [address] Care Team Providers Care Equipment Technician Name Role Phone KLEVERDANNY CARCAMO Primary Care Provider Jose Ruiz Jr REASON FOR VISIT screening Problems Problem Type SNOMED Code ICD Code Onset Dates Problem Status W/U Status Risk Notes Problem History of polyp of colon (situation) (269084960) Personal history of colonic polyps (Z86.010) Active confirmed Encounters Encounter Location Date Provider Diagnosis [facility] [place] [address] [place] [phone] 12/16/2023 Jose Castro Jr Colon cancer screening [...] Of Treatment No Information Progress Notes * MARCO NORWOODENCEDOB: 0 (74 yo M)Acc No.[id number]:12/16/2023 COLON WITH MAC Patient:?MALA NORWOOD Provider:?Jose Castro MD :1950???Age:73 Y???Sex:Male Eliu e:12/16/2023 Address:[address] [place], [place] [phone] Pcp:DANNY KHANNA Subjective: * Chief Complaints: * ???1. Screening. * Medical History:? Objective: * Vitals:? Assessment: * Assessment: 1.?Colon cancer screening - Z12.11 (Primary)???2.?Personal history of colonic polyps - Z86.010???3.?Colon polyps - K63.5??? Plan: * Treatment: * Procedure Codes:?44588 LESIO N REMOVAL COLONOSCOPY, 22118 COLONOSCOPY AND BIOPSY, Modifiers: 59 , 0529F INTRVL 3+YRS PTS CLNSCP DOCD * * The named appointment provid er may or may not be the originator of this progress note, and it is not deemed complete until electronically signed by the appointment provider. Sign off status: Pending * Provider:?Jose Castro MD Date:?1 Generated for Ana mauro/Mari/eTjosselinsmitting on:?06/28/2024 08:13 AM EDT
== END 2024-06-28 08:55 | disposition home or self-care (01) ==
LOC: HO.HMCC 08:10
PROVIDERS: PCP Nurse Practitioner Family; Visit Provider Nurse Practitioner Family
DX: E11.9 Type 2 diabetes mellitus without complications (principal); R06.2 Wheezing; I10 Essential (primary) hypertension; G47.30 Sleep apnea, unspecified; M79.89 Other specified soft tissue disorders; J45.909 Unspecified asthma, uncomplicated

== ENCOUNTER 2024-06-28 08:09 | Outpatient (REF) | payer MEDICARE, SELFPAY ==
[2024-06-28 10:17] LABS: Estimated Average Glucose 117 mg/dL; Hemoglobin A1C 153.9005 umol/L; Hemoglobin A1c % 5.7 % (<6.0); Total Hemoglobin (HGBA1C) 3929.6884 umol/L
[2024-06-28 10:19] LABS: B Type Natriuretic Peptide 74 pg/mL (<100)
[2024-06-28 10:35] LABS: Creatinine Urine 86.43 mg/dL; Microalbum/Creatinine Ratio Ur 31.2 ug/mg cr (<30)
[2024-06-28 10:45] LABS: Alanine Aminotransferase 30 U/L (0-40); Alkaline Phosphatase 83 U/L (39-117); Anion Gap 12 (12-20); Aspartate Amino Transferase 34 U/L (5-37); Bilirubin Total 0.6 mg/dL (0.0-1.0); Blood Urea Nitrogen 10 mg/dL (9-16); Carbon Dioxide 28 mmol/L (22-29); Chloride 105 mmol/L (96-108); Estimated Glomerular Filt Rate > 60; Glucose Random 110 mg/dL (60-115); Potassium 3.9 mmol/L (3.3-5.1); Sodium 141 mmol/L (135-145)
[2024-07-01 11:03] LABS: Class Cat Dander 2; Class Cockroach 3; Class Dermatophagoides farinae 4; Class Dog Dander 2; Class Mouse Urine Protein 0/1; Class Timothy Grass 3; E001 - IgE Cat Dander 0.78; E005 - IgE Dog Dander 1.81; E072-IgE Mouse Urine 0.31; I006-IgE Cockroach, German 8.94; Immunoglobulin E 626 (H)
[2024-07-01 11:04] LABS: Class Alternaria alternata 1; Class Aspergillus fumigatus 1; Class Cladosporium herbarum 0/1; Class Mountain Cedar 3; Class Oak 3; Class Sycamore 3; Class Walnut Tree 3; M002 - IgE Cladosporium herbar 0.31; M003 - IgE Aspergillus fumigat 0.37; M006 - IgE Alternaria alternat 0.47; T006 - IgE Cedar, Mountain 9.04
[2024-07-01 11:05] LABS: Class Common Ragweed 4; Class Cottonwood 3; Class Derm. pterony 4; Class Mugwort 3; Class White Ash 3; Class White Mulberry 3
[2024-07-01 11:06] LABS: Class Bermuda Grass 3; Class Birch 3; Class Elm 3; Class Maple Box Elder 3; Class Penicillium crysogenum 1; Class Rough Pigweed 3; Class Sheep Sorrel 3; M001 IgE Penicillium chrysogen 0.36
== END 2024-06-28 08:10 | disposition home or self-care (01) ==
LOC: HO.HMGCLDS 08:09
PROVIDERS: PCP Nurse Practitioner Family; Visit Provider Nurse Practitioner Family
DX: J45.909 Unspecified asthma, uncomplicated (principal); G47.30 Sleep apnea, unspecified; I10 Essential (primary) hypertension; M79.89 Other specified soft tissue disorders; E11.9 Type 2 diabetes mellitus without complications
CPT/HCPCS: 36415; 80053; 82043; 82570; 82785; 83036; 83880; 84443; 86003; 96127; 99212

== ENCOUNTER → 2024-07-12 08:50 | Outpatient (REF) | payer MEDICARE, SELFPAY ==
--- NOTE | 2024-07-12 08:52 | CA_ITS ---
Transthoracic Echocardiogram Patient (Last, First, Middle): Hood Morris C Gender: Male Date of : 1950 Age: 74 Procedure Date: 07/12/2024 Procedure Type: Transthoracic Echocardiogram Location: OP Height: 180.34 cm Weight: 111.13 kg BSA: 2.30 m2 Heart Rate: 63 bpm BP: 124 / 74 mmHg Tool And Die Supervisor: LOWELL Referring MD: Rickey Maria RECEIVING OPERATOR- Symptoms: M79.89 - Other specified soft tissue disorders Study Quality: Adequate w contrast ECG Rhythm: Sinus Conclusions: - The left ventricular systolic function is normal. The calculated ejection fraction is 64% by biplane method. - No obvious valvular pathology seen on this study. 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 - Small plaque is seen in the sino tubular ridge. Findings Procedure Information Contrast agent, definity, is being given per protocol without apparent complications. Left Ventricle Normal left ventricular cavity size. There is mildly increased left ventricular wall thickness. The left ventricular systolic function is normal. The calculated ejection fraction is 64% by biplane method. There is no evidence of regional wall motion abnormalities. Diastolic function is normal for age. Right Ventricle Normal right ventricular cavity size and systolic function. Atria Both atria are normal in size. Aortic Valve There is a normal trileaflet aortic valve. There is mild calcification of the aortic valve. There is no aortic valve regurgitation. Mitral Valve The mitral valve appears normal. There is trace mitral valve regurgitation. There is no mitral valve stenosis. Pulmonic Valve The pulmonic valve is likely normal. Tricuspid Valve There is mild tricuspid valve regurgitation. There is no evidence of pulmonary hypertension. Great Vessels Small plaque is seen in the sino tubular ridge. Venous The inferior vena cava is normal in size and collapses less than 50% with inspiration. Pericardium/Pleural There is a trivial pericardial effusion. Prior Study Comparison No significant change compared to prior study dated: 10/02/2021. Recommendations, Care & Conclusions No obvious valvular pathology seen on this study. Measurements 2D Linear Measurements IVSd: 1.28 0.6-0.9/0.6-1.0 cm LVIDd: 5.28 3.9-5.3/4.2-5.9 cm LVIDd Index: 2.30 2.4-3.2/2.2-3.1 cm/m2 LVIDs: 3.33 2.0-3.6 cm LVPWd: 1.45 0.7-1.1 cm LA Diam: 3.70 2.7-3.8/3.0-4.0 cm LAIDs Index: 1.61 1.5-2.3 cm/m2 LV Mass: 381.39 67-162/88-224 g LV Mass Index: 165.82 43-95/49-115 g/m2 LVOT Diam: 2.20 3.0+(-)1.3 cm 2D Systolic Function EF 4C: 67.40 >55% EF 2C: 61.90 >55% EF BiP: 64.20 >55% Mitral Valve MV Pk E: 0.93 MV PK A: 0.66 MV Decel Time: 125.00 E/A: 1.40 E'Lateral: 8.05 E'Medial: 6.20 E/E' Med: 15.10 E/E' Lat: 11.60 PHT: 37.00 MVA PHT: 5.95 Decel [place]: 7.47 Aortic Valve AoV Pk Delvis: 1.79 AoV Pk Grad: 13.00 JACKY: 2.55 LVOT LVOT Pk Delvis: 1.25 LVOT Mn Delvis: 0.80 LVOT VTI: 0.28 LVOT Pk Grad: 6.00 LVOT Mn Grad: 3.00 LVOT Diam: 2.20 LVOT Area: 3.80 Diastolic Function MV Pk E: 0.93 MV Pk A: 0.66 E/A: 1.40 E'Medial: 6.20 E/E' Med: 15.10 E' Laterial: 8.05 E/E' Lat: 11.60 Right Ventricle TAPSE (mm): 21.40 TVS' Delvis: 12.00 Tricuspid Valve TR Pk Delvis: 2.14 TR Pk Grad: 18.00 RA Press: 3.00 RVSP: 21.00 Great Vessels Aorta Sinus of Valsalva: 3.60 2.0-3.5 cm Ao Asc: 3.30 2.1-3.4 cm Pulmonary Valve PV Pk Delvis: 0.89 Peak PV Grad: 3.00 Updated in Other Vendor System with Status of Final Felix Greco MD electronically signed on 07/12/2024 1:15:10 PM with status of Final
--- OUTSIDE RECORDS SUMMARY | 2024-07-12 09:15 | XMS_ITS ---
Author Organization [facility] Address [address] [place] [address] Care Team Providers Care Lead Generator Name Role Phone KLEVERDONA DANNY Primary Care Provider Jose Ruiz Jr [phone] REASON FOR VISIT pathology Encounters Encounter Location Date Provider Diagnosis [facility] [address] [place] [address] 12/30/2023 Jose Castro Jr Plan Of Treatment No Information Progress Notes * ADRIAN NORWOODOB: 0 (73 yo M)Acc No.[id number]:12/30/2023 Patient:?MLAA NORWOOD :1950???Age:73 Y???Sex:Male Address:[address] [place] [address] * true * Date:? Generated for Ana mauro/Mari/eTransmitting on:?07/12/2024 09:15 AM EDT
--- OUTSIDE RECORDS SUMMARY | 2024-07-12 09:15 | XMS_ITS ---
Author Organization [facility] Address [address] [place] [address] Care Team Providers Care Fur Repairer Name Role Phone DANNY KHANNA Primary Care Provider Jose Ruiz Jr [phone] REASON FOR VISIT screening Problems Problem Type SNOMED Code ICD Code Onset Dates Problem Status W/U Status Risk Notes Problem Personal history of colonic polyps (Z86.010) Active confirmed Encounters Encounter Location Date Provider Diagnosis [facility] [place] [address] [place] [phone] 12/16/2023 Jose Castro Jr Colon cancer screening [...] * MARCO NORWOODENCEDOB: 0 (74 yo M)Acc No.[id number]:12/16/2023 COLON WITH MAC Patient:MALA COSTELLO Provider:?Jose Castro MD :1950???Age:73 Y???Sex:Male Eliu e:12/16/2023 Address:[address] [place], [place] [phone] Pcp:DANNY GLOGOWSKI Subjective: * Chief Complaints: * ???1. Screening. * Medical History:? Objective: * Vitals:? Assessment: * Assessment: 1.?Colon cancer screening - Z12.11 (Primary)???2.?Personal history of colonic polyps - Z86.010???3.?Colon polyps - K63.5??? Plan: * Treatment: * Procedure Codes:?92188 LESIO N REMOVAL COLONOSCOPY, 71240 COLONOSCOPY AND BIOPSY, Modifiers: 59 , 0529F INTRVL 3+YRS PTS CLNSCP DOCD * * The named appointment provid er may or may not be the originator of this progress note, and it is not deemed complete until electronically signed by the appointment provider. Sign off status: Pending * Provider:?Jose Castro MD Date:?1 Generated for Ana mauro/Mari/Yannickitting on:?07/12/2024 09:15 AM EDT
--- OUTSIDE RECORDS SUMMARY | 2024-07-12 09:16 | XMS_ITS | Patient Health Record ---
Author Organization [facility] Address [address] [place] [address] Care Team Providers Care Paranormal Investigator Name Role Phone DANNY MARIA Primary Care Provider Jose Ruiz Jr [phone] Allergies No Known Allergies Results Component Value Reference Range Notes Glucose, Whole Blood Reviewed date:12/17/2023 07:53:20 AM Interpretation: Performing Lab:[facility], [address] [place] [phone] Notes/Report: Glucose, Whole Blood 111 60-115 mg/dL METER # : [id number] Pathology Reviewed date:12/30/2023 03:13:12 PM Interpretation: Performing Lab:[facility], [address] [place] [phone] Notes/Report: ----- Name: Hood Morris Age/Sex: 73/M : 1950 Unit#: [id number] Attend Dr: Jose Castro MD Re12/16/23 Status : [facility] Location: [facility] Disch: ----- SPEC : [id number] RECD : 12/16/23 STATUS: KRISSY MEJIAS NUM: [id number] RUPERT: 12/16/[address] [facility] DR: Jose Castro MD ENTERED: 12/16/23 41 SP TYPE: Surgical OTHR DR: Danny Maria [facility]- ORDERED: HE Stain/6, Gross Micro L4/2 [...] B. CEDS Copies To: Jose Castro MD [facility] [address] [place] [address] [address] [place] [phone] CONTINUED ON NEXT PAGE ----- Name: Hood Morris Age/Sex: 73/M : 1950 Unit#: [id number] Attend Dr: Jose Castro MD Re12/16/23 Status : [facility] Location: [facility] Disch: ----- SPEC : [id number] RECD : 12/16/23 STATUS: KRISSY MEJIAS NUM: [id number] RUPERT: 12/16/[address] [facility] [address]: Jose Castro MD ENTERED: 12/16/23 41 SP TYPE: [facility]: RADHA Stain/6, Nallely Oswald L4/2 Copies To: (Continued) Danny Maria [employer] ARCHITECTAKIKO [address] [address] ----- Signed (signature on file) [...] Problem Status W/U Status Risk Notes Problem 834675722 Colon cancer screening (Z12.11) Active confirmed Problem Personal history of colonic polyps (Z86.010) Active confirmed Problem 383026243268391 [facility] (curre nt) use of aspirin (Z79.82) Active confirmed Problem 234540465 Gastroesophageal reflux disease without esophagitis (K21.9) Active confirmed Vital Signs Temperature 98.0 degrees Fahrenheit 11/17/2023 Blood pressure diastolic 00 mm Hg 11/17/2023 Height 70.5 in 11/17/2023 Blood pressure systolic 000 mm Hg 11/17/2023 Weight 224 lbs 11/17/2023 BMI 31.68 kg/m2 11/17/2023 Encounters Encounter Location Date Provider Diagnosis [facility] [place] [address] [place] [phone] 12/16/2023 Jose Castro Jr Colon cancer screening Z12.11 ; Personal history of colonic polyps Z86.010 and Colon polyps K63.5 [facility] [address] [place] [address] 11/17/2023 Jose Castro Jr Colon cancer screening Z12.11 and Gastroesophageal reflux disease without esophagitis K21.9 [facility] [address] [place] [address] 12/30/2023 Jose Castro Jr Assessments Encounter Date [...] Insured Coverage Start Date Coverage End Date [facility] [address] [place] [phone] [id number] HOOD MORRIS Self - patient is the insured Medical (General) History Medical History History ICD Code Hypertension BPH COPD Hyperlipidemia Gastroesophageal reflux dise ase, EGD 2012, no Johnson's esophagus or H. pylori Diabetes mellitus Colon polyps, colonoscopy 2019, five-yea r followup Surgical History Surgery Date(Month/Year)
--- OUTSIDE RECORDS SUMMARY | 2024-07-12 09:16 | XMS_ITS ---
Author Organization [facility] Address [address] [place] [address] Care Team Providers Care Home Appliances Mechanic Name Role Phone DANNY KHANNA Primary [...] Problem Status W/U Status Risk Notes Problem 733544295 Gastroesophageal reflux disease without esophagitis (K21.9) Active confirmed Vital Signs Temperature 98.0 degrees Fahrenheit 11/17/19 24 Blood pressure systolic 000 mm Hg 11/17/19 24 Blood pressure diastolic 00 mm Hg 024 Height 70.5 in 11/17/2023 Weight 224 lbs 11/17/2023 BMI 31.68 kg/m2 11/17/2023 Encounters Encounter Location Date Provider Diagnosis [facility] [address] [place] [address] 11/17/2023 Jose Castro Jr Colon cancer screening [...] * MARCO NORWOODENCEDOB: 0 (73 yo M)Acc No.[id number]:11/17/2023 Progress Notes Patient:?MALA NORWOOD Provider:?Jose Castro MD :1950???Age:73 Y???Sex:Male Eliu e:11/17/2023 Address:[address] [place], [place] [phone] Pcp:DANNY KHANNA Subjective: * Chief Complaints: * [...] MD Date:?0 11/17/2023 Generated for Ana mauro/Mari/eTjosselinsmitting on:?07/12/2024 09:15 AM EDT History and Physical Notes * [...]
== END ==
LOC: HO.CARD 08:50
PROVIDERS: PCP Nurse Practitioner Family; Visit Provider Nurse Practitioner Family
DX: R60.0 Localized edema (principal)
CPT/HCPCS: 93306; Q9957

== ENCOUNTER → 2024-07-12 08:52 | Outpatient (BNV) | payer MEDICARE, SELFPAY | PROVIDERS: PCP Nurse Practitioner Family; Visit Provider Internal Medicine | DX: I35.8 Other nonrheumatic aortic valve disorders (principal); I36.1 Nonrheumatic tricuspid (valve) insufficiency; I70.0 Atherosclerosis of aorta | CPT/HCPCS: 93306 ==

== ENCOUNTER 2024-07-13 13:22 | Outpatient (REF) | payer MEDICARE, SELFPAY ==
--- NOTE | ~2024-07-13 | US_ITS ---
EXAMINATION: US TRIPLEX LOWER EXTREMITY, BILATERAL CLINICAL INFORMATION: Bilateral leg edema COMPARISON: None available. TECHNIQUE: Color-flow triplex imaging with spectral analysis and compression Doppler were performed on the bilateral lower extremities. FINDINGS: Respiratory variation, normal compression and augmented flow are noted throughout the bilateral lower extremities. The visualized common femoral vein, superficial femoral vein, profunda femoral vein, popliteal vein and midcalf peroneal and posterior tibial venous segments show no evidence of deep venous thrombosis bilaterally. There is no Suazo's cyst. US/US venous duplex LE BI IMPRESSION: No evidence of deep venous thrombosis involving the bilateral lower extremities. Electronically signed by: Mann Sanchez MD 07/13/2024 02:13 PM EDT
--- OUTSIDE RECORDS SUMMARY | 2024-07-13 14:37 | XMS_ITS ---
Author Organization [facility] Address [address] [place] [address] Care Team Providers Care Repeat Photocomposing Machine Operator Name Role Phone KLEVERDANNY CARCAMO Primary Care Provider Jose Ruiz Jr REASON FOR VISIT screening Problems Problem Type SNOMED Code ICD Code Onset Dates Problem Status W/U Status Risk Notes Problem History of polyp of colon (situation) (095738687) Personal history of colonic polyps (Z86.010) Active confirmed Encounters Encounter Location Date Provider Diagnosis [facility] [place] [address] [place] [phone] 12/16/2023 Jose Castro Jr Colon cancer screening [...] * MARCO NORWOODENCEDOB: 0 (74 yo M)Acc No.[id number]:12/16/2023 COLON WITH MAC Patient:?MALA NORWOOD Provider:?Jose Castro MD :1950???Age:73 Y???Sex:Male Eliu e:12/16/2023 Address:[address] [place], [place] [phone] Pcp:DANNY KHANNA Subjective: * Chief Complaints: * ???1. Screening. * Medical History:? Objective: * Vitals:? Assessment: * Assessment: 1.?Colon cancer screening - Z12.11 (Primary)???2.?Personal history of colonic polyps - Z86.010???3.?Colon polyps - K63.5??? Plan: * Treatment: * Procedure Codes:?60757 LESIO N REMOVAL COLONOSCOPY, 95431 COLONOSCOPY AND BIOPSY, Modifiers: 59 , 0529F INTRVL 3+YRS PTS CLNSCP DOCD * * The named appointment provid er may or may not be the originator of this progress note, and it is not deemed complete until electronically signed by the appointment provider. Sign off status: Pending * Provider:?Jose Castro MD Date:?1 Generated for Ana mauro/Mari/Yannickitting on:?07/13/2024 02:37 PM EDT
--- OUTSIDE RECORDS SUMMARY | 2024-07-13 14:37 | XMS_ITS ---
Author Organization [facility] Address [address] [place] [address] Care Team Providers Care Annual Giving Manager Name Role Phone KLEVERDONA DANNY Primary Care Provider Jose Ruiz Jr REASON FOR VISIT pathology Encounters Encounter Location Date Provider Diagnosis [facility] [address] [place] [address] 12/30/2023 Jose Castro Jr Plan Of Treatment No Information Progress Notes * ADRIAN NORWOODOB: 0 (73 yo M)Acc No.[id number]:12/30/2023 Patient:?MALA NORWOOD :1950???Age:73 Y???Sex:Male Address:[address] [place] [address] * true * Date:? Generated for Ana mauro/Mari/eTransmitting on:?07/13/2024 02:37 PM EDT
--- OUTSIDE RECORDS SUMMARY | 2024-07-13 14:37 | XMS_ITS ---
Author Organization [facility] Address [address] [place] [address] Care Team Providers Care Coordinator Volunteer Services Name Role Phone DANNY KHANNA Primary Care Provider Jose Ruiz Jr Unavailable [phone] Allergies No Known Allergies REASON FOR VISIT [...] Problem Status W/U Status Risk Notes Problem 265819728 Gastroesophageal reflux disease without esophagitis (K21.9) Active confirmed Vital Signs Temperature 98.0 degrees Fahrenheit 11/17/19 24 Blood pressure systolic 000 mm Hg 11/17/19 24 Blood pressure diastolic 00 mm Hg 024 Height 70.5 in 11/17/2023 Weight 224 lbs 11/17/2023 BMI 31.68 kg/m2 11/17/2023 Encounters Encounter Location Date Provider Diagnosis [facility] [address] [place] [address] 11/17/2023 Jose Castro Jr Colon cancer screening [...] * MARCO NORWOODENCEDOB: 0 (73 yo M)Acc No.[id number]:11/17/2023 Progress Notes Patient:?MALA NORWOOD Provider:?Jose Castro MD :1950???Age:73 Y???Sex:Male Eliu e:11/17/2023 Address:[address] [place], [place] [phone] Pcp:DANNY KHANNA Subjective: * Chief Complaints: * [...] MD Date:?0 11/17/2023 Generated for Ana mauro/Mari/eTjosselinsmitting on:?07/13/2024 02:37 PM EDT History and Physical Notes * HPI [...]
--- OUTSIDE RECORDS SUMMARY | 2024-07-13 14:37 | XMS_ITS | Patient Health Record ---
Author Organization [facility] Address [address] [place] [address] Care Team Providers Care Lead Generation Representative Name Role Phone DANNY MARIA Primary Care Provider Jose Ruiz Jr [phone] Allergies No Known Allergies Results Component Value Reference Range Notes Glucose, Whole Blood Reviewed date:12/17/2023 07:53:20 AM Interpretation: Performing Lab:[facility], [address] [place] [id number] Notes/Report: Glucose, Whole Blood 111 60-115 mg/dL METER # : [id number] Pathology Reviewed date:12/30/2023 03:13:12 PM Interpretation: Performing Lab:[facility], [address] [place] [id number] Notes/Report: ----- Name: Hood Morris Age/Sex: 73/M : 1950 Unit#: [id number] Attend Dr: Jose Castro MD Re12/16/23 Status : [facility] Location: [facility] Disch: ----- SPEC : [id number] RECD : 12/16/23 STATUS: KRISSY MEJIAS NUM: [id number] RUPERT: 12/16/[address] [facility] [address]: Jose Castro MD ENTERED: 12/16/23 41 SP TYPE: Surgical OTHR DR: Danny Maria [facility]- ORDERED: HE Stain/6, Gross Micro L4/2 Diagnosis [...] B. CEDS Copies To: Jose Castro MD [facility] [address] [place] [address] [address] [place] [address] [phone] CONTINUED ON NEXT PAGE ----- Name: Hood Morris Age/Sex: 73/M : 1950 Unit#: [id number] Attend Dr: Jose Castro MD Re12/16/23 Status : [facility] Location: [facility] Disch: ----- SPEC : [id number] RECD : 12/16/23 STATUS: KRISSY MEJIAS NUM: [id number] RUPERT: 12/16/23 [facility]: Jose Castro MD ENTERED: 12/16/23 41 SP TYPE: Surgical [facility]THR DR[facility] ORDERED: RADHA Stain/6, Nallely Oswald L4/2 Copies To: (Continued) Danny Maria [employer] [address] [address] ----- Signed (signature on file) [...] Problem Status W/U Status Risk Notes Problem 677754648 Colon cancer screening (Z12.11) Active confirmed Problem History of polyp of colon (situation) (512272496) Personal history of colonic polyps (Z86.010) Active confirmed Problem [id number] 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 (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 nt) use of aspirin (Z79.82) Active confirmed Problem 078598073 Gastroesophageal reflux disease without esophagitis (K21.9) Active confirmed Vital Signs Temperature 98.0 degrees Fahrenheit 11/17/2023 Blood pressure diastolic 00 mm Hg 11/17/2023 Height 70.5 in 11/17/2023 Blood pressure systolic 000 mm Hg 11/17/2023 Weight 224 lbs 11/17/2023 BMI 31.68 kg/m2 11/17/2023 Encounters Encounter Location Date Provider Diagnosis [facility] [address] [place] [id number] 12/16/2023 Jose Castro Jr Colon cancer screening Z12.11 ; Personal history of colonic polyps Z86.010 and Colon polyps K63.5 [facility] [address] [place] [phone] 11/17/2023 Jose Castro Jr Colon cancer screening Z12.11 and Gastroesophageal reflux disease without esophagitis K21.9 [facility] [address] [place] [address] 12/30/2023 Jose Castro Jr Assessments Encounter Date [...] Insured Coverage Start Date Coverage End Date [facility] [address] [place] [id number] HOOD MORRIS Self - patient is the insured Medical (General) History Medical History History ICD Code Hypertension BPH COPD Hyperlipidemia Gastroesophageal reflux dise ase, EGD 2012, no Johnson's esophagus or H. pylori Diabetes mellitus Colon polyps, colonoscopy 2019, five-yea r followup Surgical History Surgery Date(Month/Year)
== END 2024-07-13 13:23 | disposition home or self-care (01) ==
LOC: HO.US 13:22
PROVIDERS: PCP Nurse Practitioner Family; Visit Provider Nurse Practitioner Family
DX: R60.0 Localized edema (principal)
CPT/HCPCS: 93970

== ENCOUNTER → 2024-07-13 13:24 | Outpatient (BNV) | payer MEDICARE, SELFPAY | PROVIDERS: PCP Nurse Practitioner Family; Visit Provider Radiology Diagnostic Radiology | DX: R60.0 Localized edema (principal) | CPT/HCPCS: 93970 ==

== ENCOUNTER 2024-09-22 08:07 | Outpatient (AMB) | payer MEDICARE, SELFPAY ==
--- OUTSIDE RECORDS SUMMARY | 2023-12-16 06:00 | XMS_ITS ---
Author Organization [facility] Address [address] [place] [address] Care Team Providers Care Barrow Worker Name Role Phone DANNY KHANNA Primary Care Provider Jose Ruiz Jr REASON FOR VISIT screening Problems Problem Type SNOMED Code ICD Code Onset Dates Problem Status W/U Status Risk Notes Problem History of polyp of colon (situation) (454300287) Personal history of colonic polyps (Z86.010) Active confirmed Encounters Encounter Location Date Provider Diagnosis [facility] Outpatient [address] [place] [phone] 12/16/2023 Jose Castro Jr Colon cancer screening [...] * ADRIAN NORWOODOB: 0 (74 yo M)Acc No.[id number]:12/16/2023 COLON WITH MAC Patient: MALA CHOE Provider: Yonny Castro MD :1950 A ge:73 Y S ex:Male Date:12/16/2023 Address:[address] [place], [place] [phone] Pcp:DANNY KHANNA Subjective: * Chief Complaints: * 1 . Screening. * Medical History: Objective: * Vitals: Assessment: * Assessment: 1. C olon cancer screening - Z12.11 (Primary) 2 . P ersonal history of colonic polyps - Z86.010 3 . C olon polyps - K63.5 Plan: * Treatment: * Procedure Codes: 4 5385 LESION REMOVAL COLONOSCOPY, 37261 COLONOSCOPY AND BIOPSY, Modifiers: 59 , 0516F INTRVL 3+YRS PTS CLNSCP DOCD * * The named appointment provid er may or may not be the originator of this progress note, and it is not deemed complete until electronically signed by the appointment provider. Sign off status: Pending * Provider: Yonny Castro MD Date: 1 Generated for Ana mauro/Mari/Yannickitting on: 0 09/22/2024 08:09 AM EDT
[2024-09-22 08:10] VITALS: BP 128/64; PULSE 61; O2SAT 95; BMI 31.2
--- NOTE | 2024-09-22 08:10 | A.OFFVIS_ITS ---
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 He reports slight fatigue with exertion with snoring and patient states apneas. Also states wierd dreams(some different some are the same) Accompanied by: Self / Same As Patient Allergies Lisinopril-Hydrochlorothiazide Allergy (Intermediate, Uncoded 06/28/24 08:14) swelling of lips and tongue HPI Comments Details: 74 year old male with Nocturia and fragmented sleep referred to us by his PCP for an evaluation. He goes to bed at 9:30 and wakes up at 5:30am with 4 bathroom breaks all after midnight. He says his sleep is broken and has horrendous, repetitive, fear inducing dreams as if he is trapped in a room, and can not get out of a foreign bedroom type location where he walks to the door and then wakes up to use the b athroom. He has frequency, and difficulty starting the stream, denies back pain, denies incontinence, denies hematuria and stopping the stream. He snores loudly, gasps for air and now he has to sleep in a different room because his does not get restful sleep due to his snoring. He has ashtma, and uses albuterol prn. He tried taking a sleep aide and the dreams became more intense as if he is a combat war situation. Denies RLS symptoms, though his feet swell up. He has angio-edema, we discussed wearing compression stockings <2hrs / day and elevating the legs. Memory is stable, denies any difficulty forgetting important tasks, will forget items on the grocery lists. 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 His grand-kids 12 and 13th moved out of the house so that is also an adjustment. He swims daily as he has a pool. Does not smoke, or drink. REPLACED BY [facility] Medical History Abdominal pain Asthma Hypercholesteremia Hypertension Surgical History No pertinent past surgical history Social History Housing: House Are you a primary family day carer to a significant other at home: No Do you presently have visiting nurse or other home services: No Alcohol intake: current Alcohol intake frequency: a few times a week Alcohol type: wine Patient Tobacco Use Status: Never used Tobacco e-Cigarette/Vaping Use: Never Used Second Hand Smoke Exposure: No service: No Current occupational status: employed Current occupation: part-time [employer] Current occupational exposures/hazards: No Cognitive needs: No Hearing needs: No Vision needs: Yes Physical Exam Vital Signs: Last Vital Signs Pulse 61 09/22/24 08:10 BP 128/64 09/22/24 08:10 Pulse Ox 95 09/22/24 08:10 Oxygen Delivery Method Room Air 09/22/24 08:10 BMI result Body Mass Index 31.2 Const General: cooperative and comfortable Nutritional Appearance: average body habitus Orientation/consciousness: patient oriented x3 HEENT Face and sinus: Yes face symmetric Teeth and gingiva: other (mallampti score of 4) Throat: Yes other (uvula is not visible) Eyes Pupils: Equal, round and reactive pupils present Neck Neck: Yes other (limited rom laterally and on extenstion and flexion) Resp Effort & Inspection: normal respiratory effort and able to speak in complete sentences Skin Other: sebhorrheic dermatitis/ actinic keratosis/ being followed by derm post mohs procedure scc. Neuro General: patient oriented x3 and moves all extremities Cranial nerves: Yes Facial sensation intact/muscles of mastication intact, Yes Equal, round and reactive pupils present, Yes Normal accommodation reflex present, Yes Normal facial strength present, Yes Midline tongue present, Yes Ability to bilaterally rotate head present and Yes Ability to bilaterally elevate shoulders present Gait exam (Neuro): Normal gait present Motor exam (neuro): 5/5 motor strength present throughout and Normal motor muscle tone present throughout Deep tendon reflexes (DTR's): Right triceps reflex intensity grade: 2+, Left triceps reflex intensity grade: 2+, Rt Biceps (C5, C6): 2+, Left biceps reflex intensity grade: 2+, Right brachioradialis reflex intensity grade: 2+, Left brachioradialis reflex intensity grade: 2+, Right patellar reflex intensity grade: 2+ and Left patellar reflex intensity grade: 2+ Coordination: [id number] test normal Psych Appearance: grossly normal Attitude: cooperative Thought process: Normal thought process present Thought content: Normal thought content present Results Reviewed Results Reviewed: Labs reviewed with patient. Assessment & Plan Assessment & Plan (1) Excessive daytime sleepiness: Code(s): G47.19 - Other hypersomnia Category: Medical (2) Nocturia more than twice per night: Code(s): R35.1 - Nocturia Category: Medical Plan HST r/o diana Nightmares - declines sleep aide Nocturia referral to Urology Tamsulosin 0.4mg has not improved the frequency. Orders: Orders RT home sleep study Today G47.19 - Other hypersomnia Referrals Urology Referral R35.1 - Nocturia Patient Instructions: Sleep Hygiene provided: set a scheduled bedtime and wake time to help regulate the circadian rhythm and balance the release of pituitary hormones. Sleep in a dark room, temperatures below 68 degrees, and no devices n bed. Limit caffeinated products 6 hours prior to bed, and limit fluids 2-4 hours prior to bed. Gentle night yoga, diffusing essential oils, and playing soft music can be relaxing. Patient Education: Limiting caffeine and diuretics 6 hours prior to bed, limiting fluids 2 hours prior to bedtime reviewed bladder training for frequency. Coding Level of Care Code New Pt Level 4 (83012) Diagnoses Excessive daytime sleepiness G47.19 Nocturia more than twice per night R35.1 Time Spent (min) 30 Comment Evaluation of Sleep Sleep Questionnaire Difficulty falling asleep: No Difficulty staying asleep?: Yes Number of arousals: 4 Snoring: Yes Witnessed apneas: Yes Gasping arousals: Yes Nocturia: Yes GERD: No Vivid dreams: Yes Acting out dreams: No Abnormal behavior in sleep: No Abnormal movements in sleep: No Morning headaches: No Excessive daytime sleepiness: Yes Daytime naps: Yes Restless legs: Yes (pain lyme disease- 10 years-arthritis-) Hallucinations: No (when sleeping nightime war capture) Sleep paralysis: No Drop attacks: No Sleep Study: No CPAP: No
== END 2024-09-22 09:42 | disposition home or self-care (01) ==
LOC: HO.HSMS 08:07
PROVIDERS: PCP Nurse Practitioner Family; Visit Provider Physician Assistant Medical
DX: G47.19 Other hypersomnia (principal); R35.1 Nocturia
CPT/HCPCS: 99204

== ENCOUNTER → 2024-09-22 08:07 | Outpatient (BNVA) | payer MEDICARE, SELFPAY | PROVIDERS: PCP Nurse Practitioner Family; Visit Provider Physician Assistant Medical | DX: G47.19 Other hypersomnia (principal); R35.1 Nocturia | CPT/HCPCS: 99202 ==

== ENCOUNTER 2024-09-28 08:42 | Outpatient (AMB) | payer MEDICARE, SELFPAY ==
--- OUTSIDE RECORDS SUMMARY | 2023-12-16 06:00 | XMS_ITS ---
Author Organization [facility] Address [address] [place] [address] Care Team Providers Care Fairing Worker Name Role Phone DANNY KHANNA Primary Care Provider Jose Ruiz Jr REASON FOR VISIT screening Problems Problem Type SNOMED Code ICD Code Onset Dates Problem Status W/U Status Risk Notes Problem History of polyp of colon (situation) (928261259) Personal history of colonic polyps (Z86.010) Active confirmed Encounters Encounter Location Date Provider Diagnosis [facility] [place] [address] [place] [phone] 12/16/2023 Jose Castro Jr Colon cancer screening [...] * ADRIAN NORWOODOB: 0 (74 yo M)Acc No.[id number]:12/16/2023 COLON WITH MAC Patient: MALA CHOE Provider: Yonny Castro MD :1950 A ge:73 Y S ex:Male Date:12/16/2023 Address:[address] [place], [place] [phone] Pcp:DANNY KHANNA Subjective: * Chief Complaints: * 1 . Screening. * Medical History: Objective: * Vitals: Assessment: * Assessment: 1. C olon cancer screening - Z12.11 (Primary) 2 . P ersonal history of colonic polyps - Z86.010 3 . C olon polyps - K63.5 Plan: * Treatment: * Procedure Codes: 4 5385 LESION REMOVAL COLONOSCOPY, 33600 COLONOSCOPY AND BIOPSY, Modifiers: 59 , 0529F INTRVL 3+YRS PTS CLNSCP DOCD * * The named appointment provid er may or may not be the originator of this progress note, and it is not deemed complete until electronically signed by the appointment provider. Sign off status: Pending * Provider: Yonny Castro MD Date: 1 Generated for Ana mauro/Mari/Yannickitting on: 0 09/28/2024 09:00 AM EDT
[2024-09-28 08:54] VITALS: BP 134/68; PULSE 57; TEMP 36.6; O2SAT 95; BMI 31.1
--- NOTE | 2024-09-28 08:54 | AM.OFFWIN_ITS ---
Intake Vital Signs 09/28/24 08:54 Height 5 ft 11 in Weight 223 lb BMI 31.1 BP 134/68 Blood Pressure Location Lt brachial Position Sitting Pulse 57 Pulse Source Pulse Oximeter Temp 97.8 F Temp Source Oral Pulse Oximetry (%) 95 Oxygen Delivery Method Room Air Intake Visit Reasons: EP-lt leg severe pain Intake Note: pt here for left thigh shocking pain for a few days, denies injury Patient Tobacco Use Status: Never used Tobacco Allergies gabapentin Adverse Reaction (Mild, Verified 09/28/24 09:04) nightmares Lisinopril-Hydrochlorothiazide Allergy (Intermediate, Uncoded 09/28/24 08:56) Swelling Medication List - Last Reconciled 09/28/24 by Deandra Lamar, DATA SOLUTIONS ARCHITECT- albuterol sulfate 90 mcg/actuation (Ventolin HFA) 2 puffs inhalation Q6H PRN amlodipine 5 mg PO DAILY blood pressure test kit-medium daily blood sugar diagnostic (FreeStyle Lite Strips) test blood sugar once a day blood-glucose meter (FreeStyle Lite Meter kit) daily checks buspirone 5 mg PO BID 30 days cholecalciferol (vitamin D3) 50 mcg PO DAILY clonidine HCl 0.1 mg PO BEDTIME diphenhydramine HCl (Allergy (diphenhydramine)) 25 mg PO DAILY PRN 90 days epinephrine (EpiPen) 0.3 mg (0.3 mL) IM Q10M PRN 30 days ezetimibe 10 mg PO DAILY flash glucose sensor (FreeStyle Rae 2 Sensor kit) As directed to test blood carrillo gar 4 times per day furosemide 20 mg PO DAILY 3 days lancets (FreeStyle Lancets) Test blood sugar once a day metoprolol succinate ER 100 mg PO DAILY omega 4-mfc-apm-fish oil 300-1,000 mg (Fish Oil) 1 cap PO DAILY omeprazole 40 mg PO DAILY pravastatin 20 mg PO BEDTIME tamsulosin 0.4 mg PO BEDTIME Do you need a note to return to daycare/school/sports/work: No HPI HPI Comments History of Present Illness Details History of Present Illness - The patient is a 74-year-old male with DM and Neuropathy presenting with L leg pain. Starts in L hip area and radiates to anterior thigh stopping at knee. Makes it feel like leg is going to give out. - Acute onset of electric shock-like sri n in the left leg, onset , 4 AM episode noted. - Describes pain as constant with episod es most severe in the morning. - Prior attempts at relief with hot comp resses; pain persists. - Previous evaluation for bilateral leg pain in July was noted. - No history of falls, injuries, or asad lar episodes. Denies systemic sx. - Was RX Gabapentin but this caused nigh tmares; he stopped taking but wonders if he should restart. Review of Systems - Musculoskeletal: Reports severe electr ic shock-like pain in the left leg; denies pain in the knee and spine. - Neurological: Denies weakness, falls, numbness, or tingling. - Vascular: Denies claudication, leg swe lling reported. Physical Exam General: Well developed, well nourished, in no acute distress. Appears stated age. Head: Normocephalic, atraumatic. Eyes: Pupils are equal, round and reactive to light and accommodation. Conjunctivae are clear. V Lungs: Clear to auscultation bilaterally. No rales, rhonchi or wheeze noted. Good air flow in all honeycutt. Heart: Regular rate and rhythm. No murmurs, click, rubs or gallops are noted. Musculoskeletal: Joints are nontender, without swelling, redness, or effusions. Pulses: Peripheral pulses are equal and palpable bilaterally. Extremities: No clubbing or cyanosis is noted. Trace edema bilat ankles Psych: Mood and affect appropriate. Discussion Notes During the visit, I discussed with the patient that the presentation is consistent with sciatica. We reviewed the management options, including physical therapy as a primary step to alleviate symptoms and improve spinal nerve pathways. The benefits of physical therapy include relief from nerve compression and symptom management. I noted that the patient has had side effects to gabapentin but agreed to trial a lower dose due to its effectiveness for nerve pain. Alternative options, such as using Lyrica, were discussed if gabapentin proves intolerable. The significance of adhering to physical therapy was emphasized. He wonders about a cortisone injection; The patient was informed about the logistics of obtaining a cortisone injection & the need for referral from PCP PRN. It's important for the patient to monitor symptoms, seek follow-up attention if symptoms worsen, or if new symptoms develop, and to attend scheduled physical therapy sessions. Assessment and Plan 1. Sciatica - Probable diagnosis of sciatica discuss ed. - Ordered physical therapy to address chris mbar nerve compression. - Gabapentin 100 mg prescribed for nerve pain; trial suggested. - Alternative discussed: Lyrica. - Cortisone injection considered; requir es referral from PCP - [facility] reasons to fu [facility] Patient Instructions - Use gabapentin as prescribed, up to th ree times a day for nerve pain. - Schedule and attend physical therapy s essions. - Use hot compresses for additional reli ef at home. - Seek medical attention if pain worsens or new symptoms develop. - Follow up with your primary care provi josue as planned. Consent Patient was informed and verbally consented to the use of an ambient scribe for clinic note documentation during this visit. [facility] Medical History Abdominal pain Asthma Hypercholesteremia Hypertension Surgical History No pertinent past surgical history Social History Housing: House Are you a primary director of patient care to a significant other at home: No Do you presently have visiting nurse or other home services: No Alcohol intake: current Alcohol intake frequency: a few times a week Alcohol type: wine Patient Tobacco Use Status: Never used Tobacco e-Cigarette/Vaping Use: Never Used Second Hand Smoke Exposure: No service: No Current occupational status: employed Current occupation: part-time [employer] Current occupational exposures/hazards: No Cognitive needs: No Hearing needs: No Vision needs: Yes Physical Exam Vital Signs: Last Vital Signs Temp 97.8 F 09/28/24 08:54 Pulse 57 09/28/24 08:54 BP 134/68 09/28/24 08:54 Pulse Ox 95 09/28/24 08:54 Oxygen Delivery Method Room Air 09/28/24 08:54 BMI result Body Mass Index 31.1 Assessment & Plan Assessment & Plan (1) Sciatica of left side: Code(s): M54.32 - Sciatica, left side (2) Diabetes: Code(s): E11.9 - Type 2 diabetes mellitus without complications (3) Neuropathy: Code(s): G62.9 - Polyneuropathy, unspecified Plan . Orders: Orders PT Evaluation and Treatment Today M54.32 - Sciatica, left side Medications: New gabapentin 100 mg PO TID PRN 21 caps 0RF pain 7 days Coding Level of Care Code Est Pt Level 4 (82163) Diagnoses Sciatica of left side M54.32 Diabetes E11.9 Neuropathy G62.9
== END 2024-09-28 09:35 | disposition home or self-care (01) ==
PROVIDERS: PCP Nurse Practitioner Family; Visit Provider Nurse Practitioner Family
DX: E11.42 Type 2 diabetes mellitus with diabetic polyneuropathy (principal); M54.32 Sciatica, left side; G62.9 Polyneuropathy, unspecified

== ENCOUNTER → 2024-09-28 08:42 | Outpatient (BNVA) | payer MEDICARE, SELFPAY | PROVIDERS: PCP Nurse Practitioner Family; Visit Provider Nurse Practitioner Family | DX: M79.662 Pain in left lower leg (principal); M54.32 Sciatica, left side; E11.40 Type 2 diabetes mellitus with diabetic neuropathy, unspecified | CPT/HCPCS: 99212 ==

== ENCOUNTER → 2024-12-15 08:52 | Outpatient (REF) | payer MEDICARE, SELFPAY | LOC: HO.SL 08:52 | PROVIDERS: PCP Nurse Practitioner Family; Visit Provider Physician Assistant Medical | DX: N32.0 Bladder-neck obstruction (principal); N40.1 Benign prostatic hyperplasia with lower urinary tract symptoms; R35.1 Nocturia; R39.12 Poor urinary stream; G47.19 Other hypersomnia | CPT/HCPCS: 81003; 95806; 99202 ==

== ENCOUNTER → 2024-12-15 09:16 | Outpatient (BNV) | payer MEDICARE, SELFPAY | PROVIDERS: PCP Nurse Practitioner Family; Visit Provider Psychiatry & Neurology Neurology | DX: G47.33 Obstructive sleep apnea (adult) (pediatric) (principal) | CPT/HCPCS: 95806 ==

== ENCOUNTER 2024-12-15 14:49 | Outpatient (AMB) | payer MEDICARE, SELFPAY ==
--- NOTE | 2024-12-15 14:49 | MHC.OFFVIS ---
Intake Visit Reasons: Nocturia Intake Note: New Patient is present for nocturia Urology Rx:Tamsulosin Blood Thinners:none Imaging completed: none Bereavement Coordinator Required: No Accompanied by: Self / Same As Patient Allergies gabapentin Adverse Reaction (Mild, Verified 12/15/24 14:51) nightmares Lisinopril-Hydrochlorothiazide Allergy (Intermediate, Uncoded 09/28/24 08:56) Swelling HPI Comments Details: Johan is a pleasant male. He is a patient of Dr. Youssef. He is seen for the following urologic conditions - lower urinary tract symptoms Lower urinary tract symptoms Progressive Primarily obstructive in nature Weak stream, prolonged emptying Nocturia greater than 2 times per night Has been on tamsulosin Trial terazosin Bladder ultrasound, cystoscopy, uroflow PFSH Medical History Abdominal pain Asthma Hypercholesteremia Hypertension Surgical History No pertinent past surgical history Social History Housing: House Are you a primary healthcare marketer to a significant other at home: No Do you presently have visiting nurse or other home services: No Alcohol intake: current Alcohol intake frequency: a few times a week Alcohol type: wine Patient Tobacco Use Status: Never used Tobacco e-Cigarette/Vaping Use: Never Used Second Hand Smoke Exposure: No service: No Current occupational status: employed Current occupation: part-time [employer] Current occupational exposures/hazards: No Cognitive needs: No Hearing needs: No Vision needs: Yes Review of Systems Const Denies chills and Denies fever(s) Card Reports no additional complaints and Denies syncope Resp Denies cough GI Denies abdominal pain and Denies heartburn Reports as per HPI and Denies change in libido Neuro Denies syncope Psych Denies change in libido Endo Denies change in libido Physical Exam Const General: cooperative, healthy appearing, comfortable and no acute distress Orientation/consciousness: patient oriented x3 HEENT Face and sinus: Yes normal facial exam Mouth: moist mucous membranes Neck Neck: Yes normal visual inspection, Yes full ROM and Yes trachea midline Chest Chest palpation & inspection: normal inspection of the chest Resp Effort & Inspection: normal respiratory effort, able to speak in complete sentences and no respiratory distress GI Inspection: Yes normal to inspection Back/Spine/Pelvis Cervical Spine: normal cervical lordosis Thoracic/Lumbar Spine: thoracic and lumbar spine normal to inspection Skin General skin exam: no rashes or lesions noted Neuro General: patient oriented x3, gait normal, tone normal and moves all extremities Extrem General: Yes normal to inspection and Yes capillary refill normal Assessment & Plan Assessment & Plan (1) Bladder outlet obstruction: Code(s): N32.0 - Bladder-neck obstruction Category: Medical (2) Nocturia associated with benign prostatic hyperplasia: Code(s): N40.1 - Benign prostatic hyperplasia with lower urinary tract symptoms; R35.1 - Nocturia Category: Medical (3) Weak urinary stream: Code(s): R39.12 - Poor urinary stream Category: Medical Plan Trial terazosin Orders: Orders PSA,Total (Free>4and<10) Today R35.1 - Nocturia US bladder Today R35.1 - Nocturia Medications: New terazosin 5 mg PO BEDTIME 30 caps 1RF 30 days R35.1 - Nocturia Patient Instructions: This note is constructed using voice recognition software. While every effort has been made to ensure accuracy automobile service station manager errors may have been included. Imaging studies, laboratory and physical exam results were discussed and reviewed in detail. No major barriers to patient understanding were identified. An opportunity to ask questions regarding the treatment plan was provided. All questions were answered. The patient expressed understanding and agreement with the above treatment plan. The patient is aware they should contact our office by phone for worsening of their current condition or the appearance of new urologic symptoms. Compliance is encouraged with any medications and followup testing that is ordered. It is a privilege to participate in the urologic care of your patient. If you have any questions or concerns regarding treatment for the above conditions, or other urologic issues, please do not hesitate to contact me. The office telephone contact is [phone]. Sincerely, Dr Truong Heart MD, [facility] - Urology Compassionate Specialist Care for the Genitourinary System Coding Level of Care Code New Pt Level 4 (53615) Diagnoses Bladder outlet obstruction N32.0 Nocturia associated with benign prostatic hyperplasia N40.1; R35.1 Weak urinary stream R39.12
== END 2024-12-15 15:18 | disposition home or self-care (01) ==
LOC: HO.HUSH 14:49
PROVIDERS: PCP Nurse Practitioner Family; Visit Provider Urology
DX: N32.0 Bladder-neck obstruction (principal); N40.1 Benign prostatic hyperplasia with lower urinary tract symptoms; R35.1 Nocturia; R39.12 Poor urinary stream; Z13.9 Encounter for screening, unspecified
CPT/HCPCS: 99204

== ENCOUNTER → 2025-01-08 13:19 | Outpatient (AMB) | payer MEDICARE, SELFPAY ==
--- OUTSIDE RECORDS SUMMARY | 2023-12-16 06:00 | XMS_ITS ---
Author Organization [facility] Address [address] [place] [address] Care Team Providers Care Technical Training Specialist Name Role Phone DANNY KHANNA Primary Care Provider Jose Ruiz Jr REASON FOR VISIT screening Problems Problem Type SNOMED Code ICD Code Onset Dates Problem Status W/U Status Risk Notes Problem History of polyp of colon (situation) (788727623) Personal history of colonic polyps (Z86.010) Active confirmed Encounters Encounter Location Date Provider Diagnosis [facility] Outpatient [address] [place] [phone] 12/16/2023 Jose Castro Jr Colon cancer screening [...] * ADRIAN NORWOODOB: 0 (74 yo M)Acc No.[id number]:12/16/2023 COLON WITH MAC Patient: MALA CHOE Provider: Yonny Castro MD :1950 A ge:73 Y S ex:Male Date:12/16/2023 Address:[address] [place], [place] [phone] Pcp:DANNY KHANNA Subjective: * Chief Complaints: * 1 . Screening. * Medical History: Objective: * Vitals: Assessment: * Assessment: 1. C olon cancer screening - Z12.11 (Primary) 2 . P ersonal history of colonic polyps - Z86.010 3 . C olon polyps - K63.5 Plan: * Treatment: * Procedure Codes: 4 5385 LESION REMOVAL COLONOSCOPY, 97891 COLONOSCOPY AND BIOPSY, Modifiers: 59 , 0529F INTRVL 3+YRS PTS CLNSCP DOCD * * The named appointment provid er may or may not be the originator of this progress note, and it is not deemed complete until electronically signed by the appointment provider. Sign off status: Pending * Provider: Yonny Castro MD Date: Generated for Ana mauro/Mari/Yannickitting on: 03/10/2024 01:22 PM EDT
--- OUTSIDE RECORDS SUMMARY | 2025-01-08 13:22 | XMS_ITS | Patient Health Record ---
Author Organization [facility] Address [address] [place] [address] Care Team Providers Care Deputy Treasurer Name Role Phone DANNY KHANNA Primary Care Provider Jose Ruiz Jr Unavailable [phone] Allergies No Known Allergies Reason For Referral No Information Medications Medication SIG (Take, Route, Frequency, Duration) Notes Start Date End Date Status Latanoprost 0.005 % INSTILL ONE DROP IN EACH EYE AT BEDTIME Ophthalmic; Duration: 90 Active MiraLax (colon prep) 17 GM/SCOOP mixed with Gatorade or Crystal Light Orally begin at 5:00 p.m. the day before the procedure; Duration: 1 day 11/17/2023 Active Lisinopril-hydroCHLOROthiaz jodie 20/25mg Active Omeprazole 20mg Acti ve Fish Oil 500 MG 1 capsule Orally Onc e a day Active Gabapentin 300 MG TAKE 1 CAPSULE BY MO UTH AT BEDTIME Oral; Duration: 30 Active cloNIDine HCl 0.1 MG TAKE 1 TABLET BY MO UTH EVERYDAY AT BEDTIME Oral; Duration: 90 Active amLODIPine Besylate 5 MG TAKE 1 TABLET B Y MOUTH DAILY Oral; Duration: 90 Active Metoprolol Succinate ER 25 MG Oral; Duration: 90 Active Tamsulosin HCl 0.4 MG TAKE 1 CAPSULE BY MOUTH AT BEDTIME Oral; Duration: 90 Active Pravastatin Sodium 20 MG Oral; Duration: 90 Active Immunizations Vaccine Route Administration Date Status Comme nts Influenza Unknown 12/08/2017 Administered Influenza Unknown 01/28/2023 Administered Problems Problem Type SNOMED Code ICD Code Onset Dates Problem Status W/U Status Risk Notes Problem Colon cancer screening (852820164) Colon cancer screening (Z12.11) Active confirmed Problem History of polyp of colon (situation) (581497641) Personal history of colonic polyps (Z86.010) Active confirmed Problem Long-term current use of antiplatelet drug (444078788016759) 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.82) Active confirmed Problem Gastroesophageal reflux disease without esophagitis (763565000) Gastroesophageal reflux disease without esophagitis (K21.9) Active confirmed Plan Of Treatment Future Test Test Name Order Date UPPER GI ENDOSCOPY 10/14/2012 COLONOSCOPY 10/14/2012 COLONOSCOPY 03/26/2018 COLONOSCOPY 11/17/2023 Insurance Providers Payer Name Payer Address Payer Phone Subscriber Number Group Number Insured Name Patient Relationship to Insured Coverage Start Date Coverage End Date [facility] [address] [place] [phone] [id number] MALA NORWOOD Self - patient is the insured Medical (General) History Medical History History ICD Code Hypertension BPH COPD Hyperlipidemia Gastroesophageal reflux dise ase, EGD 2012, no Johnson's esophagus or H. pylori Diabetes mellitus Colon polyps, colonoscopy 2019, five-yea r followup Surgical History Surgery Date(Month/Year)
--- NOTE | 2025-01-08 14:23 | AM.OFFWIN_ITS ---
Intake Vital Signs 01/08/25 14:26 Height 5 ft 11 in Weight 231 lb BMI 32.2 BP 140/70 H Blood Pressure Location Lt brachial Position Sitting Respiration 17 Pulse 34 L Pulse Source Pulse Oximeter Temp 97.7 F Temp Source Oral Pulse Oximetry (%) 96 Oxygen Delivery Method Room Air Intake Visit Reasons: EP Questionable Bronchitis Intake Note: Pt is here today c/o SOB when walking short distance x1week Patient Tobacco Use Status: Never used Tobacco Allergies gabapentin Adverse Reaction (Mild, Verified 01/08/25 14:27) nightmares Lisinopril-Hydrochlorothiazide Allergy (Intermediate, Uncoded 01/08/25 14:27) Swelling HPI EP Questionable Bronchitis HPI Details Patient is a 74-year-old male with history of hypertension, benign prostatic hypertrophy, hyperlipidemia, pedal edema, diabetes and anxiety who comes to the walk-in clinic after a week of noticing shortness of breath with even short periods of exertion. He gets associated dizziness with these episodes. He denies current chest pain or pressure, shortness of breath, weakness or dizziness, nausea or vomiting, numbness or tingling, respiratory symptoms, fever or chills, palpitations, or other significant associated symptoms. [facility] Medical History Abdominal pain Asthma Hypercholesteremia Hypertension Surgical History No pertinent past surgical history Social History Housing: House Are you a primary vision care associate to a significant other at home: No Do you presently have visiting nurse or other home services: No Alcohol intake: current Alcohol intake frequency: a few times a week Alcohol type: wine Patient Tobacco Use Status: Never used Tobacco e-Cigarette/Vaping Use: Never Used Second Hand Smoke Exposure: No service: No Current occupational status: employed Current occupation: part-time [employer] Current occupational exposures/hazards: No Cognitive needs: No Hearing needs: No Vision needs: Yes Review of Systems Const All systems reviewed & are unremarkable except as noted in HPI and below Physical Exam Vital Signs: Last Vital Signs Temp 97.7 F 01/08/25 14:26 Pulse 34 L 01/08/25 14:26 Resp 17 01/08/25 14:26 BP 140/70 H 01/08/25 14:26 Pulse Ox 96 01/08/25 14:26 Oxygen Delivery Method Room Air 01/08/25 14:26 BMI result Body Mass Index 32.2 Const General: cooperative, healthy appearing, comfortable, no acute distress, alert, awake, Physically active, tired appearing and well groomed; No anxious, diaphoretic, ill appearing, intoxicated appearing or poor hygiene Nutritional Appearance: average body habitus and overweight Orientation/consciousness: patient oriented x3 Limitations: no limitations Neck Neck: Yes no JVD Chest Chest palpation & inspection: normal palpation of entire chest wall Resp Effort & Inspection: normal respiratory effort, able to speak in complete sentences, no audible wheezes, no cough, no grunting, not labored, no nasal flaring, no retractions, tachypneic (After walking down the hallway) and symmetric chest movement Auscultation: clear to auscultation bilaterally, no crackles, no rhonchi, no wheezes, diminished lung sounds and No rub present Cardio Palpation: normal PMI Rate: bradycardic Rhythm: regular rhythm Skin Other: Good color, warm and dry Neuro General: patient oriented x3 Psych Appearance: grossly normal Mental Status: mental status grossly normal Speech and movement: Normal speech and movement present Affect: normal affect Attitude: cooperative Thought process: Normal thought process present Insight: Good insight present (Psych) Judgement: Good judgement present (Psych) Assessment & Plan Assessment & Plan (1) Shortness of breath on exertion: Code(s): R06.02 - Shortness of breath Plan: Patient is a 74-year-old male with history of hypertension, benign prostatic hypertrophy, hyperlipidemia, pedal edema, diabetes and anxiety who comes to the walk-in clinic after a week of noticing shortness of breath with even short periods of exertion, associated with dizziness. He is bradycardic on arrival, with a heart rate of 34 beats per minute, and 12 lead EKG shows right bundle branch block, consistent with prior EKG. No change in QRS interval. Patient shows increased pedal edema, with +3 pitting to the mid tibias bilaterally, diminished lung sounds at the bases, and occasional cough. No obvious rales noted. Due to worrisome symptoms in elderly male, I told patient that I felt he should be evaluated further for cardiac function at the emergency department. Differential includes congestive heart failure, angina/NSTEMI, and this is life- threatening. Was amenable to this, and transport was called by ambulance to take him to [facility] per his request. Expect to be called in. Coding Level of Care Code Est Pt Level 4 (91882) Diagnoses Shortness of breath on exertion R06.02
[2025-01-08 14:26] VITALS: BP 140/70; PULSE 34; RESP 17; TEMP 36.5; O2SAT 96; BMI 32.2
== END ==
PROVIDERS: PCP Nurse Practitioner Family; Visit Provider Physician Assistant Medical
DX: R06.02 Shortness of breath (principal)

== ENCOUNTER → 2025-01-08 13:19 | Outpatient (BNVA) | payer MEDICARE, SELFPAY | PROVIDERS: PCP Nurse Practitioner Family | DX: I10 Essential (primary) hypertension (principal); R06.02 Shortness of breath | CPT/HCPCS: 99212 ==

== ENCOUNTER 2025-01-31 09:05 | Outpatient (AMB) | payer MEDICARE, SELFPAY ==
[2025-01-31 09:11] VITALS: BP 142/74; PULSE 95; TEMP 36.8; O2SAT 94; BMI 30.4
--- NOTE | 2025-01-31 09:11 | AM.OFFWIN_ITS ---
Intake Vital Signs 01/31/25 09:11 Height 5 ft 11 in Weight 218 lb BMI 30.4 BP 142/74 H Blood Pressure Location Lt brachial Position Sitting Pulse 95 Pulse Source Pulse Oximeter Temp 98.2 F Temp Source Oral Pulse Oximetry (%) 94 Oxygen Delivery Method Room Air Comment High Bp: pt didn't take meds this am-takes QHS. provider notified. Intake Visit Reasons: EP chest congestion Intake Note: pt presents with chest congestion with coughing for 5 days pacemaker placed 01/10 and fixed 01/14 d/t lead falling off Patient Tobacco Use Status: Never used Tobacco Allergies gabapentin Adverse Reaction (Mild, Verified 01/31/25 09:20) nightmares Lisinopril-Hydrochlorothiazide Allergy (Intermediate, Uncoded 01/31/25 09:20) Swelling Do you need a note to return to daycare/school/sports/work: No HPI HPI Comments History of Present Illness Details History - The patient is a 74-year-old individua l presenting with congestion and cough, concerned about potential pneumonia. - The patient reports congestion in the lungs since last , with a pe rsistent cough that started before . - The patient has a history of asthma an d Chronic Obstructive Pulmonary Disease (COPD). - Equa-wco-bctdkic medications from [facility] were taken for the chest cough but were ineffective. - The patient recently had a pacemaker p laced two weeks ago, with a subsequent revision. - The patient was hospitalized last week and discharged on Friday. - The patient lives with their , who is not currently sick. - He denies fever, chills, ALLEN, sore thro at, or ear pain. Physical Exam General: Cooperative, healthy appearing, comfortable and no acute distress Orientation/consciousness: Patient oriented x3 Limitations: No limitations Head: Normal to inspection Ears: Hearing grossly normal bilaterally, external ears normal and TM's normal bilaterally Nose: Normal external nose present, normal nares present, and no nasal discharge present. Face and sinus: Sinuses nontender to palpation. Mouth: Normal oral and palatal mucosa present and moist mucous membranes noted. Throat: Tonsils normal. Uvula is midline. Posterior oropharynx with erythema and no exudates. Eyes: Appearance normal, both eyes and all related structures Neck: Normal visual inspection, full ROM. No lymphadenopathy noted. Respiratory: Congestion in the whole lung, clear to auscultation bilaterally. Normal respiratory effort, able to speak in complete sentences. No respiratory distress, not tachypneic, no tripod positioning and no use of accessory muscles. Cardiovascular: Regular rate and rhythm. Normal S1 and S2. Systolic murmur noted. Skin: No rashes or lesions noted. Feet are dry and hypercolored. Sensation intact. Patient was informed and verbally consented to the use of an ambient scribe for clinic note documentation during this visit [facility] Medical History (Updated 01/11/25 @ 11:04 by Rickey Maria, [facility]) CHF (congestive heart failure) Abdominal pain Asthma Hypercholesteremia Hypertension Surgical History No pertinent past surgical history Social History Housing: House Are you a primary care worker to a significant other at home: No Do you presently have visiting nurse or other home services: No Alcohol intake: current Alcohol intake frequency: a few times a week Alcohol type: wine Patient Tobacco Use Status: Never used Tobacco e-Cigarette/Vaping Use: Never Used Second Hand Smoke Exposure: No service: No Current occupational status: employed Current occupation: part-time [employer] Current occupational exposures/hazards: No Cognitive needs: No Hearing needs: No Vision needs: Yes Review of Systems Const All systems reviewed & are unremarkable except as noted in HPI and below Physical Exam Vital Signs: Last Vital Signs Temp 98.2 F 01/31/25 09:11 Pulse 95 01/31/25 09:11 BP 142/74 H 01/31/25 09:11 Pulse Ox 94 01/31/25 09:11 Oxygen Delivery Method Room Air 01/31/25 09:11 BMI result Body Mass Index 30.4 Results Reviewed Results Reviewed: will review the cxr in the office Assessment & Plan Assessment & Plan (1) Cough: Code(s): R05.9 - Cough, unspecified Qualifiers: Cough type: acute Qualified Code(s): R05.1 - Acute cough Plan Most likely Chronic Obstructive Pulmonary Disease (Copd) vs URI vs bronchitis vs flu vs covid vs pneumonia plan - Initiate antibiotic therapy due to recent hospitalization and COPD history, with concern for possible pneumonia. - Prescribe a [employer] (Azithromycin) to address potential bacterial infection. - Order a chest X-ray to rule out pneumonia and adjust treatment if necessary. - Continue current inhaler use as part of asthma management. - tylenol as needed for pain or fever Orders: Orders SARS-CoV2/FLU/RSV Today R09.89 - Other specified symptoms and signs involving the circulatory and respiratory systems XR chest 2V Today R05.9 - Cough, unspecified Medications: New azithromycin For 250 mg dose pack: take 500 mg today (day 1), then 250 mg for 4 days (days 2-5) PO 6 tabs 0RF benzonatate 100 mg PO bid-tid PRN 21 caps 0RF Cough 7 days Coding Level of Care Code Est Pt Level 4 (27894) Diagnoses Acute cough R05.1 Cough type: acute
== END 2025-01-31 10:19 | disposition home or self-care (01) ==
PROVIDERS: PCP Nurse Practitioner Family; Visit Provider Physician Assistant Medical
DX: R05.1 Acute cough (principal)

== ENCOUNTER 2025-01-31 09:05 | Outpatient (REF) | payer MEDICARE, SELFPAY ==
--- NOTE | ~2025-01-31 | XR_ITS ---
EXAMINATION: XR CHEST CLINICAL INFORMATION: R05.9 - Cough, unspecified COMPARISON: 02/18/2024. TECHNIQUE: 2 views of the chest were obtained. FINDINGS: Dual lead left-sided pacer device in place with leads extending into the right atrium and right ventricle. The cardiac, hilar, and mediastinal contours are normal. Lungs are mildly hyperaerated, with bilateral flattening of the hemidiaphragms, suggestive of COPD. Minor atelectasis versus scarring is present in the left base. There is no pneumothorax or pleural effusion. There is no focal osseous or soft tissue abnormality. XR/XR chest 2V IMPRESSION: 1. Findings suggesting COPD. No definite active pulmonary disease. 2. Dual-lead pacer in place. Electronically signed by: Tang Sharma MD 01/31/2025 10:15 AM MIRELA HUNT
[2025-01-31 13:41] LABS: Resp Syncy Virus RNA Qual PCR NEGATIVE (Negative); SARS COV2 PCR INHOUSE NEGATIVE (Negative)
== END 2025-01-31 09:06 | disposition home or self-care (01) ==
LOC: HO.HMGCX 09:05
PROVIDERS: PCP Nurse Practitioner Family; Visit Provider Physician Assistant Medical
DX: R05.1 Acute cough (principal); R09.89 Other specified symptoms and signs involving the circulatory and respiratory systems
CPT/HCPCS: 71046; 87637; 99212

== ENCOUNTER → 2025-01-31 10:03 | Outpatient (BNV) | payer MEDICARE, SELFPAY | PROVIDERS: PCP Nurse Practitioner Family; Visit Provider Radiology Diagnostic Radiology | DX: R05.9 Cough, unspecified (principal); Z95.0 Presence of cardiac pacemaker | CPT/HCPCS: 71046 ==

== ENCOUNTER 2025-02-10 15:47 | Outpatient (AMB) | payer MEDICARE, SELFPAY ==
--- OUTSIDE RECORDS SUMMARY | 2023-12-16 05:00 | XMS_ITS ---
Author Organization [facility] Address [address] [place] [address] Care Team Providers Care Watch Mechanic Name Role Phone DANNY KHANNA Primary Care Provider Jose Ruiz Jr [phone] REASON FOR VISIT screening Problems Problem Type SNOMED Code ICD Code Onset Dates Problem Status W/U Status Risk Notes Problem History of polyp of colon (situation) (103594391) Personal history of colonic polyps (Z86.010) Active confirmed Encounters Encounter Location Date Provider Diagnosis [facility] Outpatient [address] [place] [phone] 12/16/2023 Jose Castro Jr Colon cancer screening Z12.11 ; Personal history of colonic polyps Z86.010 and Colon polyps K63.5 Assessments Encounter Date Diagnosis (ICD Code) Assessment Notes Treatment Notes Treatment Clinical Notes Section Notes 12/16/2023 Colon cancer screening (ICD-10 - Z12.11) 12/16/2023 Personal history of colonic polyps (ICD-10 - Z86.010) 12/16/2023 Colon polyps (ICD-10 - K63.5) Plan Of Treatment No Information Progress Notes * ADRIAN NORWOODOB: 0 (74 yo M)Acc No.[id number]:12/16/2023 COLON WITH MAC Patient: MALA CHOE Provider: Yonny Castro MD :1950 A ge:73 Y S ex:Male Date:12/16/2023 Address:[address] [place], [place] [phone] Pcp:DANNY KHANNA Subjective: * Chief Complaints: * S creening Assessment: * Assessment: 1. C olon cancer screening - Z12.11 (Primary) 2 . P ersonal history of colonic polyps - Z86.010 3 . C olon polyps - K63.5 Plan: * Procedure Codes: 4 5385 LESION REMOVAL [id number] COLONOSCOPY AND BIOPSY, Modifiers: 59 0529F INTRVL 3+YRS PTS CLNSCP DOCD Billing Information: * Procedure Codes: 05050 LESION REMOVAL COLONOSCOPY. 61378 COLONOSCOPY AND BIOPSY. Modifiers: 59 0529F INTRVL 3+YRS PTS CLNSCP DOCD. * The named appointment provid er may or may not be the originator of this progress note, and it is not deemed complete until electronically signed by the appointment provider. Sign off status: Pending * Provider: Yonny Castro MD Date: Generated for Ana mauro/Mari/Yannickitting on: 04/13/2024 09:56 PM EST
[2025-02-10 16:06] VITALS: BP 142/70; PULSE 85; RESP 16; O2SAT 95; BMI 31.4
--- NOTE | 2025-02-10 16:06 | MHC.PC.OV ---
Vital Signs 02/10/25 16:06 02/10/25 17:07 Height 5 ft 11 in Weight 225 lb BMI 31.4 BP 142/70 H 150/80 H Blood Pressure Location Rt brachial Lt brachial Position Sitting Sitting Respiration 16 Pulse 85 Pulse Source Pulse Oximeter Pulse Oximetry (%) 95 Oxygen Delivery Method Room Air Intake Visit Reasons: pe Employee Training Specialist Required: No Accompanied by: Self / Same As Patient Allergies gabapentin Adverse Reaction (Mild, Verified 02/10/25 16:51) nightmares Lisinopril-Hydrochlorothiazide Allergy (Intermediate, Uncoded 02/10/25 16:51) Swelling Medication List - Last Reconciled 02/10/25 by Rickey Maria, STRAWHAT BLOCKING OPERATOR- albuterol sulfate 90 mcg/actuation (Ventolin HFA) 2 puffs inhalation Q6H PRN amlodipine 5 mg PO DAILY benzonatate 100 mg PO BID PRN 10 days blood pressure test kit-medium daily blood sugar diagnostic (FreeStyle Lite Strips) test blood sugar once a day blood-glucose meter (FreeStyle Lite Meter kit) daily checks buspirone 5 mg PO BID 30 days cholecalciferol (vitamin D3) 50 mcg PO DAILY clonidine HCl 0.1 mg PO BEDTIME diphenhydramine HCl (Allergy (diphenhydramine)) 25 mg PO DAILY PRN 90 days epinephrine (EpiPen) 0.3 mg (0.3 mL) IM Q10M PRN 30 days ezetimibe 10 mg PO DAILY flash glucose sensor (FreeStyle Rae 2 Sensor kit) As directed to test blood sugar 4 times per day gabapentin 100 mg PO TID PRN 30 days lancets (FreeStyle Lancets) Test blood sugar once a day metoprolol succinate ER 100 mg PO DAILY omeprazole 40 mg PO DAILY pravastatin 20 mg PO BEDTIME terazosin 5 mg PO BEDTIME 90 days Tobacco use date assessed: 06/28/24 Fall risk assessment: No Falls in past year Last assessed Fall Risk: 02/10/25 Dental Screening Dental Screen Date: 02/10/25 Did you have a dental visit in the last 12 months?: Yes Did you have a dental problem in the last 6 months where you did not have access to dental care?: No Was dental information given to patient?: Patient has dentist HPI pe HPI Details History of Present Illness The patient is a 74 year old male presenting for a follow-up for a physical exam. He reports feeling well overall. He has a history of diabetes, which is well-controlled with a recent A1c in the 5s, and he denies neuropathy. 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 He has an albuterol inhaler at home but does not use it often. Cardiovascular history includes a recent pacemaker placement. He experiences shortness of breath on exertion but denies chest pain. His blood pressure is elevated, and he is on medication, which may be adjusted based on home readings. The patient is obese and has a small umbilical hernia. He has multiple papular, crusty skin lesions throughout his body and sees a multimedia project manager regularly. He is up-to-date with his colon cancer screening, with his last colonoscopy performed last year, and the next one is due in 2028. He is aware of the need for yearly eye exams and sees a urologist and manager of environmental services regularly. Health Maintenance The patient is up-to-date with colon cancer screening. Reinforced the importance of following up with cardiology, urology, and dermatology as scheduled. Social History - Tobacco Use: Patient is a non-smoker but reports lifelong exposure to secondhand smoke. 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 Review of Systems - General: Reports feeling well. - Cardiovascular: Denies chest pain. - Respiratory: Reports dyspnea on exertion. - Gastrointestinal: Denies abdominal pain, blood in stool, constipation, or diarrhea. - Neurological: Denies neuropathy. - Psychiatric: Denies suicidal or homicidal ideation. -denies any fevers, chills, intermittent cough reported Physical Exam General: Cooperative, healthy appearing, comfortable, no acute distress and well developed, but obese Orientation: Patient oriented x3 Limitations: No limitations Head: Normal to inspection Ears: Hearing grossly normal bilaterally Nose: Normal external nose present Face and sinus: Normal facial exam Eyes: Appearance normal, both eyes and all related structures Neck: Normal visual inspection and Yes full ROM Respiratory: Slightly diminished lung sounds, moving air bilaterally. Shortness of breath on exertion noted Cardiovascular: Regular rate and rhythm. Normal S1 and S2. Recent pacer placed GI: Normal to inspection. Soft to palpation and nontender. Small umbilical hernia present : Testicles without masses/lesions and no hernias appreciated Skin: Multiple popular crusty lesions throughout the entire body Neuro: Patient oriented x3 Extremities: Normal to inspection Results - Labs: His A1c was in the 5s. - Tests and Diagnostics: EKG was benign for any acute ST changes. Plan 1. Dyspnea On Exertion / Chronic Obstructive Pulmonary Disease The patient reports shortness of breath on exertion with a history of COPD. A CAT scan of the chest will be ordered to further assess his lungs, and a BNP will be ordered to evaluate for cardiac causes of his dyspnea. PFT also ordered. The patient was instructed to use his albuterol inhaler as needed but to report if he requires it more than twice a week. any worsening symptoms he knows to go to the ER 2. Hypertension The patient's blood pressure was elevated during the visit. He will monitor his blood pressure at home and provide the readings, with a potential adjustment to his medication based on these values. 3. Type 2 Diabetes Mellitus The patient's diabetes is well-controlled with a recent A1c in the 5s. Fasting labs have been ordered, and the importance of yearly eye exams was reinforced. Discussion Notes I discussed with the patient the plan to investigate his shortness of breath on exertion by ordering a chest CAT scan, given his history of COPD, and a ProBNP lab test. We reviewed his elevated blood pressure reading, and he agreed to monitor his pressures at home and report them back, with the understanding that we may adjust his medication. I also reinforced the importance of following up with his manager of environmental services. We discussed the appropriate use of his albuterol inhaler, and I advised him to let me know if he finds himself using it more than twice weekly. I informed him that orders for fasting labs have been placed. Patient Instructions - Please get a CAT scan of your chest to check on your lungs due to your shortness of breath. - Please go to the lab for fasting blood tests that have been ordered. - Check your blood pressure at home and either send the readings to the office or drop them off for review. Your blood pressure medicine may be adjusted based on these numbers. - It is important to keep your scheduled follow-up appointment with your heart doctor (manager of environmental services). - You can use your albuterol inhaler if you feel short of breath. If you need to use it more than twice in one week, please let me know. - Remember to get your eyes checked once a year. [facility] Medical History CHF (congestive heart failure) Abdominal pain Asthma Hypercholesteremia Hypertension Surgical History No pertinent past surgical history Social History Housing: House Are you a primary child care nurse to a significant other at home: No Do you presently have visiting nurse or other home services: No Alcohol intake: current Alcohol intake frequency: a few times a week Alcohol type: wine Patient Tobacco Use Status: Never used Tobacco e-Cigarette/Vaping Use: Never Used Second Hand Smoke Exposure: No service: No Current occupational status: employed Current occupation: part-time [employer] Current occupational exposures/hazards: No Cognitive needs: No Hearing needs: No Vision needs: Yes Questionnaire Thrive Questionnaire Date Thrive assessed: 04/28/24 I am a: Patient What is your living situation today?: I have a steady place to live Within the past 12 months, did the food you bought not last and you didn't have the money to get more?: Never true Within the past 12 months, did you worry whether your food would run out before you got money to buy more?: Never true Do you have trouble paying for medicines?: No Do you have trouble getting transportation to medical appointments?: No Do you have trouble paying your heating and electricity bill?: No Do you have trouble taking care of your child, family member or friend?: No Do you have trouble with day-to-day activities such as bathing, preparing meals, shopping, managing finances, etc.?: No Are you currently unemployed and looking for a job?: No Are you interested in more education?: No Please select the resources that you would like help with: None Currently or been in a relationship where the following occur: I choose not to answer THRIVE Score: 0 LJ-7 AMB Questionnaire LJ-7 Date LJ - 7 assessed: 04/28/24 Source: Developed by Drs. Trenton Palomino, Sofia Avery, Luis López and colleagues, with an educational lisa from [employer]. Physical exam (Primary Care) Vital Signs: Last Vital Signs Pulse 85 02/10/25 16:06 Resp 16 02/10/25 16:06 BP 142/70 H 02/10/25 16:06 Pulse Ox 95 02/10/25 16:06 Oxygen Delivery Method Room Air 02/10/25 16:06 BMI result Body Mass Index 31.4 Tobacco/Smoking Status: Tobacco use Status Tobacco use date assessed 06/28/24 02/10/25 16:09 Patient Tobacco Use Status Never used Tobacco 02/10/25 16:09 e-Cigarette/Vaping Use Never Used 02/10/25 16:09 Thrive Assessment: Date of Thrive Assessment Date Thrive assessed 04/28/24 02/10/25 16:09 Currently or been in a relationship where the following occur: I choose not to answer Results AMB Hemoglobin A1c AMB Hemoglobin A1c 5.6 % Last Edit by Yovana White MA on 02/10/25 16:33 Results Reviewed Results Reviewed: Laboratory Last Values Hgb A1c (Clinic) 5.6 % (4.0-6.0) 02/10/25 16:33 Coding Level of Care Code Est Pt Level 3 (07029) Est Pt Prev Care >65y(35707) Diagnoses Diabetes E11.9 COPD (chronic obstructive pulmonary disease) J44.9 Dyspnea on exertion R06.09 Encounter for routine adult physical exam with abnormal findings Z00.01 Assessment & Plan Assessment & Plan (1) Diabetes: Code(s): E11.9 - Type 2 diabetes mellitus without complications Category: Medical (2) COPD (chronic obstructive pulmonary disease): Code(s): J44.9 - Chronic obstructive pulmonary disease, unspecified Category: Medical (3) Dyspnea on exertion: Code(s): R06.09 - Other forms of dyspnea Category: Medical (4) Encounter for routine adult physical exam with abnormal findings: Code(s): Z00.01 - Encounter for general adult medical examination with abnormal findings Category: Medical Plan . Orders: Orders UA CC w/rflx Micro + Cult Today E11.9 - Type 2 diabetes mellitus without complications Lipid Panel Today E11.9 - Type 2 diabetes mellitus without complications CT chest wo IV con Today J44.9 - Chronic obstructive pulmonary disease, unspecified AMB Hemoglobin A1c Today Z13.9 - Encounter for screening, unspecified Complete Blood Count Auto Diff Today E11.9 - Type 2 diabetes mellitus without complications Comprehensive [place]. Panel Fast Today E11.9 - Type 2 diabetes mellitus without complications TSH reflex Free T4 Today E11.9 - Type 2 diabetes mellitus without complications Microalbumin, Random (w Creat) Today E11.9 - Type 2 diabetes mellitus without complications NT Pro B Type Natriuretic Pept Today R06.09 - Other forms of dyspnea PFT pulmonary function test Today J44.9 - Chronic obstructive pulmonary disease, unspecified, R06.09 - Other forms of dyspnea Medications: New benzonatate 100 mg PO BID PRN 20 caps 0RF cough 10 days Patient Instructions: .
[2025-02-10 17:07] VITALS: BP 150/80
--- OUTSIDE RECORDS SUMMARY | 2025-02-10 21:56 | XMS_ITS | Patient Health Record ---
Author Organization [facility] Address [address] [place] [address] Care Team Providers Care Head Of Science Name Role Phone DANNY KHANNA Primary Care Provider Jose Ruiz Jr Unavailable Allergies No Known Allergies Reason For Referral No Information Medications Medication SIG (Take, Route, Frequency, Duration) Notes Start Date End Date Status Latanoprost 0.005 % Solution INSTILL ONE DROP IN EACH EYE AT BEDTIME Ophthalmic; Duration: 90 Active MiraLax (colon prep) 17 GM/SCOOP Powder mixed with Gatorade or Crystal Light Orally begin at 5:00 p.m. the day before the procedure; Duration: 1 day 11/17/2023 Active Lisinopril-hydroCHLOROthiaz jodie 20/25mg Active Omeprazole 20mg Acti ve Fish Oil 500 MG Capsule 1 capsule Orally Once a day Active Gabapentin 300 MG Capsule TAKE 1 CAPSULE BY MOUTH AT BEDTIME Oral; Duration: 30 Active cloNIDine HCl 0.1 MG Tablet TAKE 1 TABLE T BY MOUTH EVERYDAY AT BEDTIME Oral; Duration: 90 Active amLODIPine Besylate 5 MG Tablet TAKE 1 TABLET BY MOUTH DAILY Oral; Duration: 90 Active Metoprolol Succinate ER 25 MG Tablet Extended Release 24 Hour Oral; Duration: 90 Active Tamsulosin HCl 0.4 MG Capsule TAKE 1 CAPSULE BY MOUTH AT BEDTIME Oral; Duration: 90 Active Pravastatin Sodium 20 MG Tablet Oral; Duration: 90 Active Immunizations Vaccine Route Administration Date Status Comme nts Influenza Unknown 12/08/2017 Administered Influenza Unknown 01/28/2023 Administered Social History Social History Additional Details Category Social Info Options Details Miscellaneous: Marital status: Occupation: retired Problems Problem Type SNOMED Code ICD Code Onset Dates Problem Status W/U Status Risk Notes Problem Colon cancer screening (349855100) Colon cancer screening (Z12.11) Active confirmed Problem History of polyp of colon (situation) (509236610) Personal history of colonic polyps (Z86.010) Active confirmed Problem Long-term current use of antiplatelet drug (684128972818442) detention (current) use of aspirin (Z79.82) Active confirmed Problem Gastroesophageal reflux disease without esophagitis (872064849) Gastroesophageal reflux disease without esophagitis (K21.9) Active confirmed Plan Of Treatment Future Test Test Name Order Date UPPER GI ENDOSCOPY 10/14/2012 COLONOSCOPY 10/14/2012 COLONOSCOPY 03/26/2018 COLONOSCOPY 11/17/2023 Insurance Providers Payer Name Payer Address Payer Phone Subscriber Number Group Number Insured Name Patient Relationship to Insured Coverage Start Date Coverage End Date [facility] [address] [place] [phone] [id number] MALA NORWOOD Self - patient is the insured Medical (General) History Medical History History ICD Code Hypertension BPH COPD Hyperlipidemia Gastroesophageal reflux dise ase, EGD 2012, no Johnson's esophagus or H. pylori Diabetes mellitus Colon polyps, colonoscopy 2019, five-yea r followup Surgical History Surgery Date(Month/Year)
== END 2025-02-11 16:46 | disposition home or self-care (01) ==
LOC: HO.HMCC 15:48
PROVIDERS: PCP Nurse Practitioner Family; Visit Provider Nurse Practitioner Family
DX: Z00.01 Encounter for general adult medical examination with abnormal findings (principal); E11.9 Type 2 diabetes mellitus without complications; J44.9 Chronic obstructive pulmonary disease, unspecified; R06.09 Other forms of dyspnea

== ENCOUNTER → 2025-02-10 15:47 | Outpatient (BNVA) | payer MEDICARE, SELFPAY | PROVIDERS: PCP Nurse Practitioner Family; Visit Provider Nurse Practitioner Family | DX: Z00.01 Encounter for general adult medical examination with abnormal findings (principal); E11.9 Type 2 diabetes mellitus without complications; R06.09 Other forms of dyspnea; J44.9 Chronic obstructive pulmonary disease, unspecified | CPT/HCPCS: 83036; 99212; 99397 ==